=== PATIENT | female | born 1950 | race Caucasian/White ===

== ENCOUNTER → 2016-09-30 | Outpatient (CLI) | payer OTHER ==
[2016-09-30 11:53] LABS: Calcium 9.7 mg/dL (8.4-10.2); Potassium 4.6 mmol/L (3.5-5.1); Total Bilirubin 1.3 mg/dL (0.2-1.3); Total Protein 7.8 g/dL (6.3-8.2)
== END | disposition home or self-care (01) ==
LOC: LABWHC1 11:04
PROVIDERS: ATTEND Family Medicine
DX: I10 Essential (primary) hypertension (principal)
CPT/HCPCS: 36415; 80053

== ENCOUNTER → 2016-11-19 | Outpatient (CLI) | payer OTHER ==
[2016-11-19 12:25] LABS: Calcium 9.5 mg/dL (8.4-10.2); Potassium 4.4 mmol/L (3.5-5.1); Total Bilirubin 1.3 mg/dL (0.2-1.3); Total Protein 7.4 g/dL (6.3-8.2)
== END | disposition home or self-care (01) ==
LOC: LABWHC1 11:35
PROVIDERS: ATTEND Family Medicine
DX: I10 Essential (primary) hypertension (principal)
CPT/HCPCS: 36415; 80053

== ENCOUNTER → 2017-07-08 | Outpatient (CLI) | payer MEDICARE, OTHER ==
[2017-07-08 11:21] LABS: Basophils % (A) 0 %; Eosinophils # (A) 0.2 k/uL (0-0.7); Eosinophils % (A) 6 %; HCT 44.9 % (34.0-46.0); HGB 14.4 gm/dL (11.4-16.0); Lymphocytes # (A) 1.2 k/uL (1.0-4.8); Lymphocytes % (A) 31 %; MCH 30.1 pg (25.0-35.0); MCV 94.2 fL (80.0-100.0); Mean Platelet Volume 6.7; Monocytes # (A) 0.3 k/uL (0-1.0); Monocytes % (A) 8 %; Neutrophils % (A) 53 %; Platelet Count 185 k/uL (150-450); RBC 4.77 m/uL (3.80-5.40); RDW 13.3 % (11.5-15.5); WBC 3.8 k/uL (3.8-10.6)
[2017-07-08 11:32] LABS: ALT 22 U/L (9-52); AST 22 U/L (14-36); Albumin 4.2 g/dL (3.5-5.0); Alkaline Phosphatase 112 U/L (38-126); Anion Gap 10 mmol/L; Blood Urea Nitrogen 21 mg/dL (7-17); Calcium 10.1 mg/dL (8.4-10.2); Carbon Dioxide 28 mmol/L (22-30); Chloride 102 mmol/L (98-107); Cholesterol 223 mg/dL (<200); Glucose 97 mg/dL (74-99); HDL Cholesterol 72 mg/dL (40-60); LDL Cholesterol,Calculated 131 mg/dL (0-99); Potassium 5.1 mmol/L (3.5-5.1); Sodium 140 mmol/L (137-145); Total Bilirubin 1.1 mg/dL (0.2-1.3); Total Protein 7.9 g/dL (6.3-8.2); Triglycerides 102 mg/dL (<150)
== END | disposition home or self-care (01) ==
LOC: LABWHC1 10:23
PROVIDERS: ATTEND Family Medicine
DX: E78.5 Hyperlipidemia, unspecified (principal); I10 Essential (primary) hypertension
CPT/HCPCS: 36415; 80053; 80061; 82306; 85025

== ENCOUNTER → 2017-09-17 | Outpatient (CLI) | payer MEDICARE, OTHER ==
[2017-09-17 10:10] LABS: Albumin 4.3 g/dL (3.5-5.0); Calcium 9.7 mg/dL (8.4-10.2); Potassium 4.4 mmol/L (3.5-5.1); Total Protein 7.7 g/dL (6.3-8.2)
== END | disposition home or self-care (01) ==
LOC: LABWHC1 09:25
PROVIDERS: ATTEND Family Medicine
DX: E78.5 Hyperlipidemia, unspecified (principal)
CPT/HCPCS: 36415; 80053; 80061

== ENCOUNTER → 2018-08-07 | Outpatient (CLI) | payer MEDICARE, OTHER ==
[2018-08-07 11:23] LABS: Basophils % (A) 0 %; Eosinophils # (A) 0.2 k/uL (0-0.7); Eosinophils % (A) 4 %; HCT 42.6 % (34.0-46.0); Lymphocytes % (A) 20 %; MCH 29.7 pg (25.0-35.0); MCHC 32.9 g/dL (31.0-37.0); MCV 90.4 fL (80.0-100.0); Mean Platelet Volume 6.8; Monocytes # (A) 0.3 k/uL (0-1.0); Monocytes % (A) 7 %; Neutrophils # (A) 3.3 k/uL (1.3-7.7); Neutrophils % (A) 67 %; Platelet Count 152 k/uL (150-450); RBC 4.71 m/uL (3.80-5.40); RDW 13.5 % (11.5-15.5); WBC 4.9 k/uL (3.8-10.6)
[2018-08-07 17:30] LABS: Albumin 4.1 g/dL (3.80-4.90); Albumin/Globulin Ratio 1.52 (1.60-3.17); Calcium 9.4 mg/dL (8.7-10.3); Globulin 2.7 g/dL (1.6-3.3); Potassium 4.4 mmol/L (3.5-5.5); Total Protein 6.8 g/dL (6.2-8.2)
== END ==
LOC: LABWHC1 10:16
PROVIDERS: ATTEND Family Medicine
DX: I10 Essential (primary) hypertension (principal); E55.9 Vitamin D deficiency, unspecified
CPT/HCPCS: 36415; 80053; 82306; 85025

== ENCOUNTER → 2019-03-31 | Outpatient (CLI) | payer MEDICARE, OTHER ==
[2019-03-31 12:29] LABS: Basophils # (A) 0.1 k/uL (0-0.2); Basophils % (A) 1 %; Eosinophils # (A) 0.2 k/uL (0-0.7); Eosinophils % (A) 4 %; HCT 43.8 % (34.0-46.0); HGB 14.1 gm/dL (11.4-16.0); Lymphocytes % (A) 25 %; MCH 30.9 pg (25.0-35.0); MCHC 32.2 g/dL (31.0-37.0); MCV 95.9 fL (80.0-100.0); Mean Platelet Volume 6.8; Monocytes # (A) 0.3 k/uL (0-1.0); Monocytes % (A) 8 %; Neutrophils # (A) 2.5 k/uL (1.3-7.7); Neutrophils % (A) 60 %; Platelet Count 166 k/uL (150-450); RBC 4.57 m/uL (3.80-5.40); WBC 4.2 k/uL (3.8-10.6)
[2019-03-31 20:27] LABS: African American GFR (CKD) 60.6 (60.0-200.0); Albumin 4.2 g/dL (3.80-4.90); Albumin/Globulin Ratio 1.62 (1.60-3.17); Anion Gap 9.9 mmol/L (4.00-12.00); BUN/Creat Ratio 22.73 Ratio (12.00-20.00); Calcium 9.2 mg/dL (8.7-10.3); Carbon Dioxide 25.1 mmol/L (21.6-31.8); Globulin 2.6 g/dL (1.6-3.3); Non-African American GFR(CKD) 52.3 (60.0-200.0); Potassium 4.7 mmol/L (3.5-5.5); Total Bilirubin 1.2 mg/dL (0.3-1.2); Total Protein 6.8 g/dL (6.2-8.2)
== END ==
LOC: LABWHC1 11:42
PROVIDERS: ATTEND Family Medicine
DX: E78.5 Hyperlipidemia, unspecified (principal)
CPT/HCPCS: 36415; 80053; 85025

== ENCOUNTER → 2019-12-15 | Outpatient (CLI) | payer MEDICARE, OTHER ==
[2019-12-15 11:45] LABS: Basophils % (A) 0 %; Eosinophils # (A) 0.2 k/uL (0-0.7); Eosinophils % (A) 5 %; HCT 45.3 % (34.0-46.0); HGB 14.2 gm/dL (11.4-16.0); Lymphocytes # (A) 1.2 k/uL (1.0-4.8); Lymphocytes % (A) 31 %; MCH 30.3 pg (25.0-35.0); MCHC 31.3 g/dL (31.0-37.0); MCV 96.8 fL (80.0-100.0); Mean Platelet Volume 7.7; Monocytes # (A) 0.3 k/uL (0-1.0); Monocytes % (A) 8 %; Neutrophils # (A) 2.1 k/uL (1.3-7.7); Neutrophils % (A) 52 %; Platelet Count 144 k/uL (150-450); RBC 4.68 m/uL (3.80-5.40); RDW 13.2 % (11.5-15.5); WBC 3.9 k/uL (3.8-10.6)
[2019-12-15 19:54] LABS: African American GFR (CKD) 54.2 (60.0-200.0); Albumin 4.3 g/dL (3.80-4.90); Albumin/Globulin Ratio 1.39 (1.60-3.17); Calcium 9.9 mg/dL (8.7-10.3); Chol/HDL Ratio 2.33; Globulin 3.1 g/dL (1.6-3.3); LDL Cholesterol,Calculated 92.4 mg/dL (0.0-131.0); Non-African American GFR(CKD) 46.7 (60.0-200.0); Potassium 4.6 mmol/L (3.5-5.5); Total Bilirubin 1.1 mg/dL (0.2-1.2); Total Protein 7.4 g/dL (6.2-8.2); VLDL Calculation 19.6 mg/dL (5.00-40.00)
== END | disposition home or self-care (01) ==
LOC: LABWHC1 09:42
PROVIDERS: ATTEND Family Medicine
DX: I10 Essential (primary) hypertension (principal); E78.5 Hyperlipidemia, unspecified
CPT/HCPCS: 36415; 80053; 80061; 85025

== ENCOUNTER → 2024-03-24 | Outpatient (CLI) | payer MEDICARE, OTHER ==
--- NOTE | 2024-03-25 15:33 | MR ---
EXAMINATION TYPE: MR pancreas / mrcp wo/w con DATE OF EXAM: 03/24/2024 9:25 AM INDICATION: Patient age:Female; 73 years old; Reason for study: K86.89 OTHER SPECIFIED DISEASES OF PANCREAS; [facility]. COMPARISON: CT chest 02/23/2024 TECHNIQUE: Multiplanar multi-sequence imaging was performed without and with IV contrast. The patie nt was given 7 ccs of Gadavist intravenously and dynamic imaging was performed. MRCP was performed. P ost IV contrast subtraction images were also submitted for review. FINDINGS: LOWER CHEST: Mild thyromegaly. ABDOMEN Liver: No focal lesion. Noncirrhotic morphology. No fatty infiltration. Gallbladder and Bile ducts: Gallbladder is unremarkable without filling defects. No intra or extra he patic biliary ductal dilatation. No filling defect, stricture, obstructing lesion or biliary wall thi ckening identified. Common bile duct measuring up to 4 mm in diameter. Pancreas: No pancreatic ductal dilatation. No concerning fluid collections. Pancreas body T2 hyperint ense thin-walled cyst corresponding to prior CT measuring 2.2 x 1.6 x 1.9 cm (series 701, image 43). Slight intrinsic T1 hyperintensity. There is some slight heterogenous enhancement on contrast subtrac tion imaging. Demonstrates thin homogeneous enhancing wall. Questionable communication with the pancr eatic duct. Additional 3 tiny 3 mm thin-walled hypodense foci within the pancreatic head and neck. No definitive enhancement in these 3 small lesions. Spleen: Unremarkable. Adrenal glands: Unremarkable. Kidneys: No hydronephrosis. Exophytic right lower pole 9 mm T2 hyperintense thin-walled nonenhancing cyst. Stomach and Bowel: No evidence of bowel obstruction. Pancolonic scattered diverticulosis without evid ence for acute diverticulitis. Peritoneum: No evidence of pneumoperitoneum, free fluid, or adenopathy. Vasculature: Unremarkable. No aortic aneurysm. Abdominal wall: Unremarkable. Musculoskeletal: The osseous structures appear intact. Multilevel degenerative disc disease. IMPRESSION: 1. Pancreatic body cystic 2.2 cm lesion with some internal enhancement. Raises concern for possible malignancy with etiologies including intraductal papillary mucinous neoplasm, cystic neuroendocrine t umor, primary ductal pancreatic tumor with cystic degeneration versus other etiologies. Endoscopic ul trasound is recommended. 2. 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 [facility], , 03/25/2024 3:31 PM
== END | disposition home or self-care (01) ==
LOC: RADMRIMAIN 07:42
PROVIDERS: ATTEND Internal Medicine Geriatric Medicine
DX: K86.89 Other specified diseases of pancreas (principal)
CPT/HCPCS: 74183; A9585

== ENCOUNTER 2024-04-22 08:22 | Day surgery (SDC) | payer MEDICARE, OTHER ==
[2024-04-22 08:50] VITALS: BP 149/80; PULSE 72; RESP 12; TEMP 98
--- NOTE | 2024-04-22 11:35 | US ---
EXAMINATION TYPE: US FNA thyroid first lesion DATE OF EXAM: 04/22/2024 10:13 AM COMPARISON: None CLINICAL INDICATION:Female, 73 years old with history of E04.1 NONTOXIC SINGLE THYROID NODULE; , righ t thyroid lobe. ATTENDING: Dr. Johann Deras PROCEDURE: Informed consent was obtained. The risks and benefits of the procedure were discussed with the patien t. The site was marked. Timeout procedure was performed Ultrasound imaging demonstrates right thyroid lobe nodule The patient was prepped, draped in the usual sterile fashion, and locally anesthetized with 1% lidoca ine. Five fine needle aspiration were then performed with a 25 gauge needle. Samples were sent to [facility] pathology department for further analysis. Patient tolerated the procedure without incident and wa s sent home in stable condition. IMPRESSION: Successful ultrasound guided fine needle aspiration of the right thyroid lobe nodule. [facility], , 04/22/2024 11:33 AM
== END 2024-04-22 10:10 | disposition home or self-care (01) ==
LOC: RADPROMAIN 08:22
PROVIDERS: ATTEND Internal Medicine Geriatric Medicine
DX: E04.1 Nontoxic single thyroid nodule (principal)
CPT/HCPCS: 10005; 88173; 88305

== ENCOUNTER → 2024-06-05 | Outpatient (CLI) | payer MEDICARE, OTHER ==
--- NOTE | 2024-06-05 17:08 | MR ---
INDICATION: Patient age:Female; 74 years old; Reason for study: Z86.73 HX OF STROKE; [facility]. COMPARISON: CT brain 09/17/2013. TECHNIQUE: Multi planar, multi sequence imaging was performed through the brain without administratio n intravenous contrast FINDINGS: The west-white junctions, ventricular system, basal cisterns appear unremarkable. Age-appropriate cer ebral volume loss. Diffusion-weighted imaging shows no evidence of restricted diffusion to suggest ac [place]/subacute infarct. Region of encephalomalacia with surrounding gliosis within the right frontal an d parietal lobes from prior ischemic injury. Intracranial arterial flow voids are maintained. Midline structures show no abnormality. Patchy and confluent areas of high T2/FLAIR signal intensity are see n within the periventricular and subcortical white matter. The susceptibility weighted images demonst rate hemosiderin deposition within the right frontal lobe at site of prior infarct. Bilateral basal g anglia calcifications corresponding to prior CT. The bone marrow signal is within normal limits. The paranasal sinuses and globes are unremarkable. IMPRESSION: 1. No evidence of intracranial mass or acute/subacute infarct. 2. Regions of encephalomalacia with gliosis from prior ischemic injury involving the right frontal an d parietal lobes. 3. Nonspecific white matter changes, likely related to small vessel ischemic disease. [facility], , 06/05/2024 5:06 PM
== END | disposition home or self-care (01) ==
LOC: RADMRIMAIN 13:18
PROVIDERS: ATTEND Psychiatry & Neurology Neurology
DX: G93.89 Other specified disorders of brain (principal); R90.82 White matter disease, unspecified; Z86.73 Personal history of transient ischemic attack (TIA), and cerebral infarction without residual deficits
CPT/HCPCS: 70551

== ENCOUNTER 2024-07-07 22:44 | Inpatient (IN) | payer MEDICARE, OTHER ==
[2024-07-07] MEDS: diphenhydrAMINE 50 MG/ML 1 ML VIAL IVP STA (23:10)
[2024-07-07] MEDS: methylPREDNISolone SOD SUCCI 125 MG/2 ML VIAL IV STA (23:11)
[2024-07-07] MEDS: FAMOTIDINE 20 MG/2 ML VIAL IV STA (23:11)
[2024-07-07 23:13] LABS: Basophils % (A) 0 %; Eosinophils # (A) 0.2 k/uL (0-0.7); Eosinophils % (A) 5 %; HCT 40.8 % (34.0-46.0); HGB 13.1 gm/dL (11.4-16.0); Lymphocytes # (A) 1.8 k/uL (1.0-4.8); Lymphocytes % (A) 37 %; MCH 30.6 pg (25.0-35.0); MCV 95.4 fL (80.0-100.0); Mean Platelet Volume 7.7; Monocytes # (A) 0.5 k/uL (0-1.0); Monocytes % (A) 10 %; Neutrophils # (A) 2.1 k/uL (1.3-7.7); Neutrophils % (A) 45 %; Platelet Count 135 k/uL (150-450); RBC 4.27 m/uL (3.80-5.40); RDW 13.6 % (11.5-15.5); WBC 4.7 k/uL (3.8-10.6)
[2024-07-07 23:24] LABS: Partial Thromboplastin Time 22.7 sec (22.0-30.0); Prothrombin Time 10.8 sec (10.0-12.5)
--- NOTE | 2024-07-07 23:28 | CT ---
EXAMINATION TYPE: CODE STROKE: CT brain wo contr DATE OF EXAM: 07/07/2024 HISTORY: Acute onset neuro deficit. Code stroke. CT DLP: 1089 mGycm. Automated Exposure Control for Dose Reduction was Utilized. TECHNIQUE: CT scan of the head is performed without contrast. COMPARISON: CT brain 2013. MRI brain June 05, 2024 FINDINGS: There is no acute intracranial hemorrhage or midline shift identified. There is mild to m oderate diffuse ventricular and sulcal prominence redemonstrated. There are confluent areas of low a ttenuation throughout the deep and periventricular white matter redemonstrated. Old infarcts or focal encephalomalacia right frontal and right parietal lobes axial image 30 is again seen. The globes ar e intact and the visualized sinuses are clear. IMPRESSION: No acute intracranial hemorrhage or midline shift. There is [id number] diffuse ag e-related cerebral atrophy and moderate chronic small vessel ischemic change along with old right fro ntal and parietal lobe infarcts are all redemonstrated. No significant change from most recent prior MRI. If clinical concern for acute stroke persist further investigation with repeat MRI study may BE james dumont. [facility], , 07/07/2024 11:26 PM
--- NOTE | 2024-07-07 23:29 | XR ---
EXAMINATION TYPE: XR chest 1V DATE OF EXAM: 07/07/2024 COMPARISON: Chest x-ray September 17, 2013 CLINICAL INDICATION: Female, 74 years old with history of altered mental status; TECHNIQUE: Single frontal view of the chest is obtained. FINDINGS: Cardiomegaly is redemonstrated. No suspicious focal airspace opacity, pleural effusion, o r pneumothorax is seen. Overlying EKG leads are present. The osseous structures are intact. IMPRESSION: Cardiomegaly without acute pulmonary process. [facility], , 07/07/2024 11:27 PM
--- NOTE | 2024-07-07 23:37 | CT ---
EXAMINATION TYPE: CT angio head neck DATE OF EXAM: 07/07/2024 COMPARISON: None. CLINICAL INDICATION: Female, 74 years old with history of POSS STROKE/AMS; [facility], acute onset neuro def icit TECHNIQUE: CTA scan of the head and neck is performed with IV Contrast, patient injected with 100 mL of Isovue 300, axial images are obtained, coronal and sagittal reformatted images are reviewed. 3D r econstructed images are created on an independent workstation and reviewed. CT DLP: [address] CTDI: 16 mGy Automated exposure control for dose reduction was used. NASCET criteria was used in interpretation of this exam? FINDINGS: Right Carotid System: The common carotid artery and external carotid artery are patent. Moderate to severe calcified plaque right carotid bulb extends into proximal internal carotid artery. Lumen diameter narrows to 1.8 mm w ith reconstitution of 2 6.4 mm distal to this. The remaining portions of the internal carotid artery demonstrate normal size without significant narrowing. Mild to moderate peripheral calcified plaque d istally is seen Left Carotid System: The common carotid artery and external carotid artery are patent. The carotid bifurcation demonstrate s no evidence of hemodynamically significant stenosis. Mild calcified plaque left carotid bulb level is seen. The remaining portions of the internal carotid artery demonstrate normal size without signif icant narrowing. [id number] peripheral calcified plaque distal internal carotid artery is seen. Vertebral arteries are patent without evidence hemodynamically significant stenosis. Right vertebral artery is larger caliber dominant. Poorly visualized bilateral posterior communicating arteries. There is a patent anterior communicatin g artery. No large vessel occlusion or aneurysm at the level of [place]. There is a three-vessel aortic arch. The origins of the great vessels are patent. No evidence of hemo dynamically significant stenosis. Other: There is 1.9 cm low dense right thyroid nodule. This is noted sampled April 22, 2024. Corre late clinically. Moderate disc space narrowing and spurring C4-C5 and C5-C6 levels. IMPRESSION: 1. No large vessel occlusion or aneurysm at the level of the [place] of [place]. 2. Moderate to severe plaque right carotid bulb and proximal internal carotid artery causing signifi cant stenosis with lumen diameter narrowing measured around 70%. Consider direct catheter angiogram t o further evaluate and/or treat. [facility], , 07/07/2024 11:35 PM
[2024-07-07 23:42] LABS: ALT 13 U/L (4-34); AST 25 U/L (14-36); African American GFR (CKD) 46 (>60 ml/min/1.73 sqM); Alkaline Phosphatase 87 U/L (38-126); Anion Gap 10 mmol/L; Blood Urea Nitrogen 31 mg/dL (7-17); Calcium 9.3 mg/dL (8.4-10.2); Carbon Dioxide 25 mmol/L (22-30); Chloride 99 mmol/L (98-107); Creatine Kinase 71 U/L (30-135); Glucose 108 mg/dL (74-99); Non-African American GFR(CKD) 40 (>60 ml/min/1.73 sqM); Potassium 4.4 mmol/L (3.5-5.1); Sodium 134 mmol/L (137-145); Total Bilirubin 0.7 mg/dL (0.2-1.3); Total Protein 7.4 g/dL (6.3-8.2)
[2024-07-08] MEDS: T.ENECTEPLASE 5 MG/ML VIAL IVP STA (00:03)
[2024-07-08] MEDS ORDERED: LABETALOL 5 MG/ML VIAL MDV IVP PRN (00:21)
--- NOTE | 2024-07-08 00:29 | ED ---
Neuro HPI - General Chief Complaint: Neuro Symptoms/Deficit Stated Complaint: Stroke Time Seen by Provider: 07/07/24 22:46 Source: patient, EMS Mode of arrival: EMS Limitations: no limitations - History of Present Illness Is the patient presenting with stroke symptoms?: Yes Last Known Well Date: 07/07/24 Last Known Well Time: 22:00 -: minutes(s) Initial Comments: Patient is 74-year-old woman arriving by ambulance to have evaluation for suspected stroke. The patient had been observed by family members to be in her usual state health and then she had gotten up to use the bathroom this evening and then had fallen. She displayed weakness of the left arm and leg. EMS was called and brings patient here to have evaluation. Of note she did have TIA and had been admitted at [facility] for same last week. Location: left face, left arm, left leg History of same: No Place: home Severity: severe Quality: weak, numb Improves With: none Worsens With: none On Anticoagulants: Yes (plavix) Context: sudden onset Associated Symptoms: denies other symptoms Treatments Prior to Arrival: none - Related Data Home Medications: Home Medications Medication Instructions Recorded Confirmed Montelukast [Singulair] 10 mg PO HS 04/06/24 07/15/24 amLODIPine [Norvasc] 5 mg PO DAILY 04/06/24 07/15/24 carvediloL [Coreg] 12.5 mg PO BID 04/06/24 07/15/24 Atorvastatin Calcium [Lipitor] 40 mg PO HS 07/08/24 07/15/24 Previous Rx's Medication Instructions Recorded Ticagrelor [Brilinta] 90 mg PO BID #60 tab 07/14/24 Allergies/Adverse Reactions: Allergies Allergy/AdvReac Type Severity Reaction Status Date / Time acetaminophen Allergy Anaphylaxis Verified 07/15/24 09:57 [From Tylenol-Codeine #3] aspirin Allergy Rash/Hives Verified 07/15/24 09:57 codeine Allergy Anaphylaxis Verified 07/15/24 09:57 iodine Allergy Rash/Hives Verified 07/15/24 09:57 Penicillins Allergy Anaphylaxis Verified 07/15/24 09:57 Review of Systems ROS Statement: Those systems with pertinent positive or pertinent negative responses have been documented in the HPI. ROS Other: All systems not noted in ROS Statement are negative. Constitutional: Reports: weakness. Denies: fever, chills Eyes: Denies: vision change Respiratory: Denies: cough, dyspnea Cardiovascular: Denies: chest pain, palpitations Gastrointestinal: Denies: abdominal pain, vomiting, diarrhea Genitourinary: Denies: dysuria, hematuria Musculoskeletal: Denies: back pain Skin: Denies: rash Neurological: Reports: as per HPI, weakness. Denies: headache, paresthesias General Exam Limitations: no limitations General appearance: alert, in distress Head exam: Present: atraumatic, normocephalic Eye exam: Present: normal appearance. Absent: scleral icterus, conjunctival injection Neck exam: Present: normal inspection, full ROM Respiratory exam: Present: normal lung sounds bilaterally. Absent: respiratory distress, wheezes, rales, rhonchi, stridor, accessory muscle use Cardiovascular Exam: Present: regular rate, normal rhythm, normal heart sounds. Absent: systolic murmur, diastolic murmur, rubs, gallop GI/Abdominal exam: Present: soft. Absent: distended, tenderness, guarding, rebound, rigid, mass Extremities exam: Present: normal inspection, normal capillary refill. Absent: pedal edema, calf tenderness Back exam: Present: normal inspection. Absent: CVA tenderness (R), CVA tenderness (L) Neurological exam: Present: alert, oriented X3, CN II-XII intact, motor sensory deficit (Left arm, left leg weakness) Expanded Neurological exam: Present: protecting the airway. Absent: inattentive, ataxia, receptive aphasia, expressive aphasia, tremor Patient oriented to: Present: person, place, time Speech: Present: fluid speech Cranial nerves: Tongue Deviation: Normal Motor strength exam: RUE: 5, LUE: 0, RLE: 5, LLE: 2/1 Eye Response: (4) open spontaneously Motor Response: (6) obeys commands Verbal Response: (5) oriented Skin exam: Present: warm, dry, intact, normal color. Absent: rash Stroke MDM - Lab Data Result diagrams: 07/14/24 04:10 07/14/24 04:10 Lab Results 07/07/24 07/07/24 07/07/24 Range/Units 22:55 22:55 22:55 WBC 4.7 (3.8-10.6) k/uL RBC 4.27 (3.80-5.40) m/uL Hgb 13.1 (11.4-16.0) gm/dL Hct 40.8 (34.0-46.0) % MCV 95.4 (80.0-100.0) fL MCH 30.6 (25.0-35.0) pg MCHC 32.0 (31.0-37.0) g/dL RDW 13.6 (11.5-15.5) % Plt Count 135 L (150-450) k/uL MPV 7.7 Neutrophils % 45 % Lymphocytes % 37 % Monocytes % 10 % Eosinophils % 5 % Basophils % 0 % Neutrophils # 2.1 (1.3-7.7) k/uL Lymphocytes # 1.8 (1.0-4.8) k/uL Monocytes # 0.5 (0-1.0) k/uL Eosinophils # 0.2 (0-0.7) k/uL Basophils # 0.0 (0-0.2) k/uL PT 10.8 (10.0-12.5) sec INR 1.0 (<1.2) APTT 22.7 (22.0-30.0) sec Sodium 134 L (137-145) mmol/L Potassium 4.4 (3.5-5.1) mmol/L Chloride 99 (98-107) mmol/L Carbon Dioxide 25 (22-30) mmol/L Anion Gap 10 mmol/L BUN 31 H (7-17) mg/dL Creatinine 1.34 H (0.52-1.04) mg/dL Est GFR (CKD-EPI)AfAm 46 (>60 ml/min/1.73 sqM) Est GFR (CKD-EPI)NonAf 40 (>60 ml/min/1.73 sqM) Glucose 108 H (74-99) mg/dL Calcium 9.3 (8.4-10.2) mg/dL Total Bilirubin 0.7 (0.2-1.3) mg/dL AST 25 (14-36) U/L ALT 13 (4-34) U/L Alkaline Phosphatase 87 (38-126) U/L Creatine Kinase 71 (30-135) U/L Troponin I (0.000-0.034) ng/mL Total Protein 7.4 (6.3-8.2) g/dL Albumin 4.0 (3.5-5.0) g/dL 07/07/24 Range/Units 22:55 WBC (3.8-10.6) k/uL RBC (3.80-5.40) m/uL Hgb (11.4-16.0) gm/dL Hct (34.0-46.0) % MCV (80.0-100.0) fL MCH (25.0-35.0) pg MCHC (31.0-37.0) g/dL RDW (11.5-15.5) % Plt Count (150-450) k/uL MPV Neutrophils % % Lymphocytes % % Monocytes % % Eosinophils % % Basophils % % Neutrophils # (1.3-7.7) k/uL Lymphocytes # (1.0-4.8) k/uL Monocytes # (0-1.0) k/uL Eosinophils # (0-0.7) k/uL Basophils # (0-0.2) k/uL PT (10.0-12.5) sec INR (<1.2) APTT (22.0-30.0) sec Sodium (137-145) mmol/L Potassium (3.5-5.1) mmol/L Chloride (98-107) mmol/L Carbon Dioxide (22-30) mmol/L Anion Gap mmol/L BUN (7-17) mg/dL Creatinine (0.52-1.04) mg/dL Est GFR (CKD-EPI)AfAm (>60 ml/min/1.73 sqM) Est GFR (CKD-EPI)NonAf (>60 ml/min/1.73 sqM) Glucose (74-99) mg/dL Calcium (8.4-10.2) mg/dL Total Bilirubin (0.2-1.3) mg/dL AST (14-36) U/L ALT (4-34) U/L Alkaline Phosphatase (38-126) U/L Creatine Kinase (30-135) U/L Troponin I <0.012 (0.000-0.034) ng/mL Total Protein (6.3-8.2) g/dL Albumin (3.5-5.0) g/dL - Medical Decision Making The patient had chest x-ray that I interpreted as negative for acute infiltrate, pneumothorax, congestive heart failure. The patient had CT scan of the brain that I interpreted as negative for acute bony injury, negative for acute intracranial hemorrhage, mass effect or midline shift. The patient had CT angiography of the brain that I interpreted as negative for acute intracranial hemorrhage. No obvious arterial obstruction. Was pt. sent in by a medical professional or institution (LOPEZ Robert, ASSOCIATE PROFESSOR OF PSYCHOLOGY, urgent care, hospital, or intermediate...) When possible be specific @ -[No] Did you speak to anyone other than the patient for history (EMS, parent, family, police, friend...)? What history was obtained from this source @ -[No] Did you review nursing and triage notes (agree or disagree)? Why? @ -[I reviewed and agree with nursing and triage notes] Were old charts reviewed (outside hosp., previous admission, EMS record, old EKG, old radiological studies, urgent care reports/EKG's, intermediate records)? Report findings @ -[No old charts were reviewed] Differential Diagnosis (chest pain, altered mental status, abdominal pain women, abdominal pain men, vaginal bleeding, weakness, fever, dyspnea, syncope, headache, dizziness, GI bleed, back pain, seizure, CVA, palpatations, mental health, musculoskeletal)? @ -[Differential CVA Ischemic stroke, hemorrhagic stroke, brain tumor, atypical migraine, Wernicke's encephalopathy, seizure, multiple sclerosis, meningitis, encephalitis, hypoglycemia, Guillain-Corrigan, electrolytes disturbance, myasthenia gravis.... This is not meant to be an all-inclusive list EKG interpreted by me (3pts min.). @ -[I interpreted as above] X-rays interpreted by me (1pt min.). @ -[I interpreted as above CT interpreted by me (1pt min.). @ -[I interpreted as above U/S interpreted by me (1pt. min.). @ -[None done] What testing was considered but not performed or refused? (CT, X-rays, U/S, labs)? Why? @ -[None] What meds were considered but not given or refused? Why? @ -[None] Did you discuss the management of the patient with other professionals (professionals i.e. LOPEZ Robert, ASSOCIATE PROFESSOR OF PSYCHOLOGY, lab, RT, psych nurse, bilingual social worker, clinical account liaison, teacher, radiological defense officer, gearcase assembler)? Give summary @ -[I discussed case with the stroke interventionalist, as above Was smoking cessation discussed for >3mins.? @ -[No] Was critical care preformed (if so, how long)? @ -[Yes, 40 minutes Were there social determinants of health that impacted care today? How? (Homelessness, low income, unemployed, alcoholism, drug addiction, transportation, low edu. Level, literacy, decrease access to med. care, penitentiary, rehab)? @ -[No] Was there de-escalation of care discussed even if they declined (Discuss DNR or withdrawal of care, Hospice)? DNR status @ -[No] What co-morbidities impacted this encounter? (DM, HTN, Smoking, COPD, CAD, Cancer, CVA, ARF, Chemo, Hep., AIDS, mental health diagnosis, sleep apnea, morbid obesity)? @ -[Hypertension, previous TIA Was patient admitted / discharged? Hospital course, mention meds given and route, prescriptions, significant lab abnormalities, going to OR and other pertinent info. @ -[Patient is 74-year-old woman brought to have evaluation for suspected stroke. See the above discussion. Patient is administered TNKase. After period of time she did have marked neurologic improvement. The patient is admitted to have further neurology consultation and treatment. Undiagnosed new problem with uncertain prognosis? @ -[No] Drug Therapy requiring intensive monitoring for toxicity (Heparin, Nitro, Insulin, Cardizem)? @ -[TNKase Were any procedures done? @ -[No] Diagnosis/symptom? @ -[Acute ischemic stroke Acute, or Chronic, or Acute on Chronic? @ -[Acute Uncomplicated (without systemic symptoms) or Complicated (systemic symptoms)? @ -[default] Side effects of treatment? @ -[No] Exacerbation, Progression, or Severe Exacerbation? @ -[No] Poses a threat to life or bodily function? How? (Chest pain, [place], [place], pneumonia, PE, COPD, DKA, ARF, appy, cholecystitis, CVA, Diverticulitis, Homicidal, Suicidal, threat to staff... and all critical care pts) @ -[Yes risk of permanent disability/ related to ischemic stroke All treatments are based on ideal body weight as in ED triage - EKG Data -: EKG Interpreted by Me EKG shows normal: sinus rhythm (With frequent PVCs, rate 79 bpm), intervals (AK interval 254 ms, prolonged consistent with first-degree AV block. QRS duration 94 ms, QTc 410 ms, both normal.), QRS complexes (Normal), ST-T waves (Possible lateral ischemia) Rate: normal (Rate 79 bpm) Past Medical History Past Medical History: CVA/TIA, Hyperlipidemia, Hypertension Additional Past Medical History / Comment(s): TIA 02/2024 History of Any Multi-Drug Resistant Organisms: None Reported Past Surgical History: Adenoidectomy, Section, Tonsillectomy Past Anesthesia/Blood Transfusion Reactions: No Reported Reaction Past Psychological History: No Psychological Hx Reported Smoking Status: Never smoker Past Alcohol Use History: None Reported Past Drug Use History: None Reported - Past Family History Father Family Medical History: Cancer, Renal Disease Additional Family Medical History / Comment(s): kidney cancer, 1 kidney removed. Mother Family Medical History: Congestive Heart Failure (CHF), Coronary Artery Disease (CAD), Dementia Course Vital Signs 07/07/24 07/07/24 07/08/24 22:45 23:29 01:54 Temperature 97.4 F L Pulse Rate 72 80 77 Respiratory 18 18 18 Rate Blood Pressure 146/84 155/94 127/91 O2 Sat by Pulse 96 96 94 L Oximetry 07/08/24 07/08/24 07/08/24 02:00 03:00 04:00 Temperature Pulse Rate 80 78 80 Respiratory 18 16 16 Rate Blood Pressure 127/58 113/99 137/81 O2 Sat by Pulse 95 94 L 95 Oximetry 07/08/24 07/08/24 07/08/24 05:00 07:40 08:02 Temperature 98.9 F 98.1 F Pulse Rate 81 87 82 Respiratory 18 18 18 Rate Blood Pressure 109/81 144/70 126/69 O2 Sat by Pulse 94 L 96 96 Oximetry - Reevaluation(s) Reevaluation #1: 07/08/24 00:27 Patient is 74-year-old woman here with recent fall and left-sided weakness. After arrival, the patient is sent for CT of the brain. I discussed the case w ith Dr. Molina. He reviewed the CT scan, then called back and we discussed indications/contraindications. I discussed with family and after some discussion amongst himself's and answering questions the patient is administered TNKase, the discussion did result in small delay in administration. Disposition Clinical Impression: Cerebrovascular accident (CVA) Disposition: ADMITTED IP TO THIS HOSP Condition: Fair Is patient prescribed a controlled substance at d/c from ED?: No
[2024-07-08] MEDS: ATORVASTATIN 80 MG TAB PO STA (01:44)
--- NOTE | 2024-07-08 03:39 | P.CNPUL ---
History of Present Illness Consult date: 07/08/24 Requesting physician: Nelson Hays Reason for consult: other (Status post TNK) Chief complaint: CVA-like symptoms History of present illness: Patient is a 74-year-old female with past medical history significant for hypertension, hyperlipidemia, CVA/TIA, chronic kidney disease. Presented to the emergency department via EMS late last night at 2245 with CVA-like symptoms. NIH reported at 9. Code stroke initiated. Brain CT did not show any evidence of acute intracranial hemorrhage or midline shift. Mild to moderate diffuse age- related cerebral atrophy and moderate chronic small vessel ischemic changes along with old right frontal and parietal lobe infarcts redemonstrated. CT angio of head and neck did not show any large vessel occlusions or aneurysm at the level of the [place]. Moderate to severe plaque at the right carotid bulb and proximal internal carotid artery causing significant stenosis with lumen diameter narrowing measured around 70%. On-call neurointerventional and ER physician felt patient would benefit from TNK infusion. ICU consult placed for neuromonitoring status post TNK. I am evaluating this patient in the trauma bay 2. Patient is alert and oriented x 3. Continues to have some mild to moderate dysarthria. Left-sided hemiparesis has resolved. Denies headaches, vision changes, nausea or vomiting, sensory loss. No limb ataxia outside of [place]. Denies history of seizures or migraines. Remaining neurological exam is nonfocal. Family is at bedside, and supplements HPI. At 10 pm, patient developed sudden left-sided weakness and "garbled" speech. She had a fall from the couch and landed on her face. There is some dried blood in the perioral region. No active bleeding. According to the , patient was just recently admitted at [facility] for a "mini stroke". No thrombolytics were given at this time. She was discharged on June 28. Also, she recently had a follow-up visit on Friday with her neurologist, Dr. Nikkie Gracia. Patient does have history of previous CVA. Not on any anticoagulants, but does take Plavix. Did have a recent brain MRI on 06/05/2024 did not show any evidence of intracranial mass or subacute/acute infarct. There were regions of encephalomalacia with gliosis from prior ischemic injury involving the right frontal and parietal lobes. CBC: WBC count 4.7, hemoglobin 13.1, hematocrit 40.8, platelets 135. PT 10.8, INR 1, APTT 22.7. CMP: Sodium 134, potassium 4.4, chloride 99, serum bicarb 25, BUN 31, creatinine 1.34, glucose 108. LFTs not elevated. Troponin less than 0.012. EKG: Sinus rhythm with first-degree AV block and frequent PVCs. Current vital signs: Afebrile, heart rate 77 bpm, blood pressure 127/91 mmHg, nontachypneic, SpO2 reading 94% on room air. Review of Systems Constitutional: Denies chills, Denies fatigue, Denies fever, Denies poor appetite, Denies weight gain, Denies weight loss Ears, nose, mouth and throat: Denies epistaxis, Denies headache, Denies nasal congestion, Denies nasal discharge, Denies post-nasal drip, Denies sinus pain, Denies sinus pressure, Denies sore throat Cardiovascular: Denies chest pain, Denies leg edema, Denies lightheadedness, Den ies orthopnea, Denies palpitations, Denies paroxysmal nocturnal dyspnea, Denies shortness of breath, Denies syncope Respiratory: Denies congestion, Denies cough, Denies dyspnea, Denies hemoptysis Gastrointestinal: Denies abdominal pain, Denies diarrhea, Denies hematemesis, Denies hematochezia, Denies melena, Denies nausea, Denies vomiting Genitourinary: Denies dysuria, Denies hematuria Musculoskeletal: Reports as per HPI Integumentary: Denies rash Neurological: Reports as per HPI Psychiatric: Denies anxiety, Denies depression Past Medical History Past Medical History: CVA/TIA, Hyperlipidemia, Hypertension Additional Past Medical History / Comment(s): TIA 02/2024 History of Any Multi-Drug Resistant Organisms: None Reported Past Surgical History: Adenoidectomy, Section, Tonsillectomy Past Anesthesia/Blood Transfusion Reactions: No Reported Reaction Past Psychological History: No Psychological Hx Reported Smoking Status: Never smoker Past Alcohol Use History: None Reported Past Drug Use History: None Reported - Past Family History Father Family Medical History: Cancer, Renal Disease Additional Family Medical History / Comment(s): kidney cancer, 1 kidney removed. Mother Family Medical History: Congestive Heart Failure (CHF), Coronary Artery Disease (CAD), Dementia Medications and Allergies Home Medications Medication Instructions Recorded Confirmed Type Atorvastatin Calcium 20 mg PO DAILY 04/06/24 04/22/24 History Clopidogrel Bisulfate [Clopidogrel] 75 mg PO DAILY 04/06/24 04/22/24 History Montelukast [Singulair] 10 mg PO DAILY 04/06/24 04/22/24 History amLODIPine [Norvasc] 5 mg PO DAILY 04/06/24 04/22/24 History carvediloL [Coreg] 12.5 mg PO DAILY 04/06/24 04/22/24 History Allergies Allergy/AdvReac Type Severity Reaction Status Date / Time aspirin Allergy Swelling Verified 07/07/24 22:51 iodine Allergy Rash/Hives Verified 07/07/24 22:51 Penicillins Allergy Rash/Hives Verified 07/07/24 22:51 Physical Exam Vitals: Vital Signs Temp Pulse Resp BP Pulse Ox 07/08/24 01:54 77 18 127/91 94 L 07/07/24 23:29 80 18 155/94 96 07/07/24 22:45 97.4 F L 72 18 146/84 96 Intake and Output 07/07/24 07/07/24 07/08/24 14:59 22:59 06:59 Other: Weight 76.385 kg GENERAL EXAM: Alert, 74-year-old female, lying flat in bed, comfortable in no apparent distress. HEAD: Normocephalic and atraumatic. Dried blood in the perioral area. No active bleeding. EYES: Normal reaction of pupils, equal size. No nystagmus. Nonicteric sclera. NOSE: Clear with pink turbinates. Dried blood in the perioral area. No active epistaxis THROAT: No erythema or exudates. NECK: No masses, no JVD. CHEST: No chest wall deformity. LUNGS: Equal air entry with no crackles, wheeze, rhonchi or dullness. On room air. No conversational dyspnea or accessory muscle use.. CVS: S1 and S2 normal with no audible murmur, frequent ectopy. No extra heart sounds ABDOMEN: No hepatosplenomegaly, active bowel sounds, no guarding or rigidity. SPINE: No scoliosis or deformity SKIN: No rashes CENTRAL NERVOUS SYSTEM: Alert and oriented x 3, continues to exhibit some mild dysarthria, remaining cranial nerves intact, bilateral upper extremity weakness grade 4/4, bilateral lower extremity weakness grade 4/4, no limb ataxia outside of weakness, DTRs 1-2+ bilaterally. EXTREMITIES: There is no peripheral edema, clubbing, or cyanosis. Peripheral pulses are intact. Results - Laboratory Findings CBC and BMP: 07/07/24 22:55 07/07/24 22:55 PT/INR, D-dimer PT 10.8 sec (10.0-12.5) 07/07/24 22:55 INR 1.0 (<1.2) 07/07/24 22:55 Abnormal lab findings: Abnormal Labs 07/07/24 07/07/24 22:55 22:55 Plt Count 135 L Sodium 134 L BUN 31 H Creatinine 1.34 H Glucose 108 H - Diagnostic Findings Chest x-ray: image reviewed Assessment and Plan Assessment: Acute ischemic CVA, status post TNK History of hypertension History of hyperlipidemia History of CVA/TIA Carotid artery stenosis, CT angio of head and neck did not show any large vessel occlusions or aneurysm at the level of the [place]. Moderate to severe plaque at the right carotid bulb and proximal internal carotid artery causing significant stenosis with lumen diameter narrowing measured around 70%. No significant luminal narrowing on the left. Chronic kidney disease stage III Plan: Patient is status post TNK and is going to be admitted to the intensive care unit Continue neurochecks per protocol Avoid extremes in blood pressure; as needed labetalol for extreme hypertension greater than 180/[address] of the brain without contrast is ordered Continue high intensity statin Medical neurology consulted Patient reportedly had an extensive neurological workup at [facility] last week, please request outside records Consult speech and PT/OT GI prophylaxis: Pepcid Patient will be monitored in the intensive care unit for least 24 hours I have personally seen and examined the patient, performed the documentation and the assessment and plan as written. Number of minutes spent on the visit:20 . Time with Patient: Greater than 30
[2024-07-08 08:20] LABS: Glucose,Whole Blood 146 mg/dL (70-110)
[2024-07-08 08:56] LABS: Basophils % (A) 0 %; Eosinophils % (A) 0 %; HCT 42.8 % (34.0-46.0); HGB 13.3 gm/dL (11.4-16.0); Lymphocytes # (A) 0.7 k/uL (1.0-4.8); Lymphocytes % (A) 19 %; MCH 30.4 pg (25.0-35.0); MCV 97.8 fL (80.0-100.0); Mean Platelet Volume 7.1; Monocytes # (A) 0.1 k/uL (0-1.0); Monocytes % (A) 3 %; Neutrophils # (A) 3.1 k/uL (1.3-7.7); Neutrophils % (A) 78 %; Platelet Count 139 k/uL (150-450); RBC 4.37 m/uL (3.80-5.40); RDW 13.3 % (11.5-15.5)
[2024-07-08 09:26] LABS: ALT 16 U/L (4-34); AST 26 U/L (14-36); African American GFR (CKD) 49 (>60 ml/min/1.73 sqM); Albumin 3.9 g/dL (3.5-5.0); Alkaline Phosphatase 95 U/L (38-126); Anion Gap 12 mmol/L; Blood Urea Nitrogen 27 mg/dL (7-17); Calcium 9.2 mg/dL (8.4-10.2); Carbon Dioxide 23 mmol/L (22-30); Chloride 101 mmol/L (98-107); Glucose 155 mg/dL (74-99); Magnesium 2.1 mg/dL (1.6-2.3); Non-African American GFR(CKD) 42 (>60 ml/min/1.73 sqM); Potassium 4.2 mmol/L (3.5-5.1); Sodium 136 mmol/L (137-145); Total Bilirubin 1.1 mg/dL (0.2-1.3); Total Protein 7.3 g/dL (6.3-8.2)
[2024-07-08] MEDS: ACETAMINOPHEN TAB 325 MG TAB PO PRN (10:03)
[2024-07-08 11:47] LABS: Glucose,Whole Blood 171 mg/dL (70-110)
[2024-07-08] MEDS: CLOPIDOGREL 75 MG TAB PO SCH (12:04)
[2024-07-08] MEDS: FAMOTIDINE 20 MG/2 ML VIAL IV SCH (12:04)
[2024-07-08] MEDS: carvediloL 12.5 MG TAB PO SCH (12:04)
--- NOTE | 2024-07-08 13:56 | P.HPIM ---
History of Present Illness H&P Date: 07/08/24 This is a 74-year-old female with medical history significant for stroke, hypertension, hyperlipidemia. Patient had a prior TIA in 2023. Patient presents to the ER at 2245 yesterday evening with last known well of 10 PM. Patient arrived by EMS for suspected stroke per family they report patient had fallen off the couch; and noted to have weakness of the left arm and leg as well as garbled speech. Patient was at [facility] last week for TIA and discharged on the . She was admitted from June 26 to June 28, for numbness and paresthesias of the left hand which had resolved prior to coming to the ER. Patient's brain CT there did show a hypodensity in the right parietal region which may be age-indeterminate. Echocardiogram completed at [facility] reveals an EF of 50 to 55% with no intra-arterial shunt on bubble study. Her preliminary carotid duplex shows no evidence of hemodynamically significant stenosis. Patient was discharged on Plavix and Lipitor and was recommended for outpatient MRI and MRA of the brain. Noted that she did have a brain MRI completed on June 05, 2024 which reveals no evidence of intracranial mass/acute/subacute infarct. There is regions of encephalomalacia with gliosis from prior ischemic injury involving the right frontal and parietal lobes there is nonspecific white matter changes likely related to small vessel ischemic disease. She followed up with her primary Neurologist Dr. Romulo Gracia last Friday. She reports now for stroke like symptoms and found to have NIH score of 9 and a code stroke was initiated. Neurosurgery felt patient would benefit from TNK. Patient received TNK infusion and was admitted to the ICU for monitoring. Brain CT reveals no acute intracranial hemorrhage or midline shift there is mild to moderate diffuse age-related cerebral atrophy and moderate chronic small vessel ischemic change along with old right frontal parietal lobe infarcts. Chest X-ray reveals cardiomegaly without acute pulmonary process. CT angiography revealed no large vessel occlusion or aneurysm at the level of the [place] there is moderate severe plaque at the right carotid bulb and proximal internal carotid artery causing significant stenosis with lumen diameter narrowing measured around 70%. CBC was unremarkable with the exception of a platelet count of 135, sodium of 134 BUN of 31 creatinine of 1.34 glucose of 108. Troponin level is negative x 3. Patient was admitted to the hospital with a consult placed to neurology. Patient was admitted to the intensive care unit and is evaluated today resting in bed. Continues to have some mild left UE weakness and left facial droop. REVIEW OF SYSTEMS: CONSTITUTIONAL: No fever, no malaise, no fatigue. HEENT: No recent visual problems or hearing problems. Denied any sore throat. CARDIOVASCULAR: No chest pain, orthopnea, PND, no palpitations, no syncope. PULMONARY: No shortness of breath, no cough, no hemoptysis. GASTROINTESTINAL: No diarrhea, no nausea, no vomiting, no abdominal pain. NEUROLOGICAL: No headaches, no numbness. Reports left weakness and garbled speech. HEMATOLOGICAL: Denies any bleeding or petechiae. GENITOURINARY: Denies any burning micturition, frequency, or urgency. MUSCULOSKELETAL/RHEUMATOLOGICAL: Denies any joint pain, swelling, or any muscle pain. ENDOCRINE: Denies any polyuria or polydipsia. The rest of the 14-point review of systems is negative. PHYSICAL EXAMINATION: GENERAL: The patient is alert and oriented x3, not in any acute distress. Well developed, well nourished. HEENT: Pupils are round and equally reacting to light. EOMI. No scleral icterus. No conjunctival pallor. Normocephalic, atraumatic. No pharyngeal erythema. No thyromegaly. CARDIOVASCULAR: S1 and S2 present. No murmurs, rubs, or gallops. PULMONARY: Chest is clear to auscultation, no wheezing or crackles. ABDOMEN: Soft, nontender, nondistended, normoactive bowel sounds. No palpable organomegaly. MUSCULOSKELETAL: No joint swelling or deformity. EXTREMITIES: No cyanosis, clubbing, or pedal edema. NEUROLOGICAL: left weakness and left facial droop. SKIN: No rashes. Assessment and plan Acute ischemic stroke presenting with left-sided paresis, dysarthria and left sided facial droop which is resolved and is post TNK infusion Carotid artery stenosis with 70% diameter narrowing of the right carotid bulb/proximal internal carotid artery Hypertension History hyperlipidemia History of TIA 2023 Chronic kidney disease GI prophylaxis DVT prophylaxis Full Code Plan Repeat brain CT at 24 hours post TNK Neurology consultation Consult vascular for evaluation of right ICA stenosis Continue plavix daily and statin therapy PT/OT/Speech therapy consultation Continue ICU monitoring Repeat BMP in the AM Patient may benefit from event monitor on discharge to rule out any cardiac arrhythmia The impression and plan of care has been dictated by Jaelyn Guillen Nurse Practitioner as directed. Dr. Steve MD I have performed a history and physical examination and medical decision making of this patient, discussed the same with the dictator, and agree with the dictators assessment and plan as written, documented as a scribe. Based on total visit time, I have performed more than 50% of this visit. Past Medical History Past Medical History: CVA/TIA, Hyperlipidemia, Hypertension Additional Past Medical History / Comment(s): TIA 02/2024 History of Any Multi-Drug Resistant Organisms: None Reported Past Surgical History: Adenoidectomy, Section, Tonsillectomy Past Anesthesia/Blood Transfusion Reactions: No Reported Reaction Past Psychological History: No Psychological Hx Reported Smoking Status: Never smoker Past Alcohol Use History: None Reported Past Drug Use History: None Reported - Past Family History Father Family Medical History: Cancer, Renal Disease Additional Family Medical History / Comment(s): kidney cancer, 1 kidney removed. Mother Family Medical History: Congestive Heart Failure (CHF), Coronary Artery Disease (CAD), Dementia Medications and Allergies Home Medications Medication Instructions Recorded Confirmed Type Clopidogrel Bisulfate [Clopidogrel] 75 mg PO DAILY 04/06/24 07/08/24 History Montelukast [Singulair] 10 mg PO HS 04/06/24 07/08/24 History amLODIPine [Norvasc] 5 mg PO DAILY 04/06/24 07/08/24 History carvediloL [Coreg] 12.5 mg PO BID 04/06/24 07/08/24 History Atorvastatin Calcium [Lipitor] 40 mg PO HS 07/08/24 07/08/24 History Allergies Allergy/AdvReac Type Severity Reaction Status Date / Time aspirin Allergy Swelling Verified 07/08/24 08:28 iodine Allergy Rash/Hives Verified 07/08/24 08:28 Penicillins Allergy Rash/Hives Verified 07/08/24 08:28 Physical Exam Vitals: Vital Signs Temp Pulse Pulse Resp BP BP Pulse Ox 07/08/24 08:40 82 18 126/80 96 07/08/24 08:30 82 23 156/99 96 07/08/24 08:20 98.1 F 07/08/24 08:15 79 18 165/69 98 07/08/24 08:02 98.1 F 82 18 126/69 96 07/08/24 07:40 98.9 F 87 18 144/70 96 07/08/24 05:00 81 18 109/81 94 L 07/08/24 04:00 80 16 137/81 95 07/08/24 03:00 78 16 113/99 94 L 07/08/24 02:00 80 18 127/58 95 07/08/24 01:54 77 18 127/91 94 L 07/07/24 23:29 80 18 155/94 96 07/07/24 22:45 97.4 F L 72 18 146/84 96 Intake and Output 07/07/24 07/08/24 07/08/24 22:59 06:59 14:59 Output Total 0 Balance 0 Output: Urine 0 Other: Weight 76.385 kg Results CBC & Chem 7: 07/08/24 08:40 07/08/24 08:40 Labs: Abnormal Lab Results - Last 24 Hours (Table) 07/07/24 07/07/24 07/08/24 Range/Units 22:55 22:55 08:19 Plt Count 135 L (150-450) k/uL Lymphocytes # (1.0-4.8) k/uL Sodium 134 L (137-145) mmol/L BUN 31 H (7-17) mg/dL Creatinine 1.34 H (0.52-1.04) mg/dL Glucose 108 H (74-99) mg/dL POC Glucose (mg/dL) 146 H (70-110) mg/dL 07/08/24 Range/Units 08:40 Plt Count 139 L (150-450) k/uL Lymphocytes # 0.7 L (1.0-4.8) k/uL Sodium (137-145) mmol/L BUN (7-17) mg/dL Creatinine (0.52-1.04) mg/dL Glucose (74-99) mg/dL POC Glucose (mg/dL) (70-110) mg/dL Assessment and Plan Time with Patient: Greater than 30
--- NOTE | 2024-07-08 14:02 | P.CNNES ---
History of Present Illness Consult date: 07/08/24 Requesting physician: Nelson Hays Reason for Consult: stroke History of Present Illness: This is a 74 year-old woman who presents to the emergency department on 07/07/2024 because of left sided weakness, numbness and speech difficulty. She stated at night and unsure when but noticed left hand numbness then involved the entire left arm with weakness then left lower extremity. She also noticed speech difficulty. This was noticed by family members. She has prior history of TIA per patient and is on Plavix. Is not on ASA since allergic to it. Upon speaking with nurse practioner, patient was hospitalized at [facility] on 06/26/2023 till 06/28/2024 for stroke like symptoms and had stroke work-up. Had CT head which was negative for acute process. Had carotid duplex which was negative for significant stenosis. Pending MRI Brain as outpatient. Some of the work-up during this hospital visit: I reviewed the lab work-up. While in the ED she had CT head which was negative for acute process. A code stroke was activiated and ED physician spoke with Dr. Díaz and agreed to pursue with TNK. CT head: No acute intracranial hemorrhage or midline shift. Old right frontal/parietal lob infarct. I personally reviewed CT and agree with report. CTA head and neck: No large vessel occlusion or aneurysm at the level of [place]. Moderate to severe plaque right carotid bulb and proximal internal carotid artery causing significant stenosis with lumen diameter narrowing measured around 70%. Review of Systems As per HPI. Past Medical History Past Medical History: CVA/TIA, Hyperlipidemia, Hypertension Additional Past Medical History / Comment(s): TIA 02/2024 History of Any Multi-Drug Resistant Organisms: None Reported Past Surgical History: Adenoidectomy, Section, Tonsillectomy Past Anesthesia/Blood Transfusion Reactions: No Reported Reaction Past Psychological History: No Psychological Hx Reported Smoking Status: Never smoker Past Alcohol Use History: None Reported Past Drug Use History: None Reported - Past Family History Father Family Medical History: Cancer, Renal Disease Additional Family Medical History / Comment(s): kidney cancer, 1 kidney removed. Mother Family Medical History: Congestive Heart Failure (CHF), Coronary Artery Disease (CAD), Dementia Medications and Allergies Home Medications Medication Instructions Recorded Confirmed Type Clopidogrel Bisulfate [Clopidogrel] 75 mg PO DAILY 04/06/24 07/08/24 History Montelukast [Singulair] 10 mg PO HS 04/06/24 07/08/24 History amLODIPine [Norvasc] 5 mg PO DAILY 04/06/24 07/08/24 History carvediloL [Coreg] 12.5 mg PO BID 04/06/24 07/08/24 History Atorvastatin Calcium [Lipitor] 40 mg PO HS 07/08/24 07/08/24 History Allergies Allergy/AdvReac Type Severity Reaction Status Date / Time aspirin Allergy Swelling Verified 07/08/24 08:28 iodine Allergy Rash/Hives Verified 07/08/24 08:28 Penicillins Allergy Rash/Hives Verified 07/08/24 08:28 Physical Examination - Vital Signs Vital Signs: Vital Signs Temp Pulse Pulse Resp BP BP Pulse Ox 07/08/24 12:00 98.4 F 79 18 147/63 96 07/08/24 11:00 79 22 144/98 96 07/08/24 10:00 83 22 137/85 96 07/08/24 09:19 97 07/08/24 09:00 80 28 H 126/80 97 07/08/24 08:40 82 18 126/80 96 07/08/24 08:30 82 23 156/99 96 07/08/24 08:20 98.1 F 07/08/24 08:15 79 18 165/69 98 07/08/24 08:02 98.1 F 82 18 126/69 96 07/08/24 07:40 98.9 F 87 18 144/70 96 07/08/24 05:00 81 18 109/81 94 L 07/08/24 04:00 80 16 137/81 95 07/08/24 03:00 78 16 113/99 94 L 07/08/24 02:00 80 18 127/58 95 07/08/24 01:54 77 18 127/91 94 L 07/07/24 23:29 80 18 155/94 96 07/07/24 22:45 97.4 F L 72 18 146/84 96 FiO2 07/08/24 12:00 07/08/24 11:00 07/08/24 10:00 07/08/24 09:19 21 07/08/24 09:00 07/08/24 08:40 07/08/24 08:30 07/08/24 08:20 07/08/24 08:15 07/08/24 08:02 07/08/24 07:40 07/08/24 05:00 07/08/24 04:00 07/08/24 03:00 07/08/24 02:00 07/08/24 01:54 07/07/24 23:29 07/07/24 22:45 Intake and Output 07/07/24 07/08/24 07/08/24 22:59 06:59 14:59 Intake Total 540 Output Total 400 Balance 140 Intake: IV 20 Invasive Line 1 20 Oral 520 Output: Urine 400 Other: Voiding Method External Catheter # Bowel Movements 0 Weight 76.385 kg 74.4 kg GENERAL: The patient is lying in bed and is not in acute distress. NEUROLOGICAL: Higher mental function: The patient is awake, alert, oriented to self, place and time. Patient is following commands. No aphasia and no neglect. Cranial nerves: The pupils are round, equal and reactive to light and accommodation. Visual harris are full to confrontation throughout. Extraocular movement is intact no nystagmus is noted. Facial sensation is normal to touch throughout. The facial strength is left nasolabial flattening. Hearing is normal bilaterally to hand rub. Tongue is midline and moved [id number] without any difficulty. No dysarthria is noted. Shoulder shrug is normal bilaterally. Motor: The strength is left upper extremity is 4+ while left lower extremity is 4+ to 5-. Otherwise 5 over 5 throughout. Normal tone and bulk. Cerebellum: Normal finger to nose bilaterally. Sensation: Sensation is normal to touch throughout. Reflexes (right/left): 2+ throughout. Plantars are mute bilaterally. Results - Laboratory Findings CBC and BMP: 07/08/24 08:40 07/08/24 08:40 Abnormal Lab Findings: Abnormal Labs 07/07/24 07/07/24 07/08/24 22:55 22:55 08:19 Plt Count 135 L Lymphocytes # Sodium 134 L BUN 31 H Creatinine 1.34 H Glucose 108 H POC Glucose (mg/dL) 146 H 07/08/24 07/08/24 07/08/24 08:40 08:40 11:45 Plt Count 139 L Lymphocytes # 0.7 L Sodium 136 L BUN 27 H Creatinine 1.28 H Glucose 155 H POC Glucose (mg/dL) 171 H Assessment and Plan Assessment: This is a 74-year-old woman who presented emergency department because of left facial droop left-sided weakness and numbness. She received TNKase yesterday. Acute ischemic stroke with symptoms of left-sided weakness numbness and speech difficulty. Post IV TNK on 07/07/2024 Right ICA stenosis of about 70% on the CT angiography. Patient had 2 carotid d uplex at the outside facility at [facility] which was negative for any significant stenosis History of stroke over the right frontal more than parietal region History of TIA Hypertension Hyperlipidemia Plan: Post 24 hours after TNK will get a repeat CT of the head and if it is negative recommend starting the patient on Brilinta 90 mg 1 tablet twice daily. Patient failed Plavix. She allergic to aspirin Continue Lipitor 40 mg nightly that sufficient for secondary stroke prophylaxis She received one-time dose of Lipitor 80 mg I ordered MRI of the brain. Ordered 2D echo Lipid panel ordered and pending. From carotid stenosis vascular surgery is consulted Continue neurochecks Cardiac monitoring PT and OT and [employer] are consulted Recommend blood pressure control per IV TNK protocol For DVT for prophylaxis on SCD The rest of the medical management to primary and other specialist. The plan is discussed with the patient and the primary team nurse practitioner Thank you for the consultation. Time with Patient: Greater than 30
--- NOTE | 2024-07-08 15:49 | P.GSCN ---
History of Present Illness Consult date: 07/08/24 Reason for Consult: Carotid stenosis Requesting physician: Jaelyn Guillen History of present illness: This is a pleasant 74-year-old female with a history of previous CVA/TIA, hyperlipidemia hypertension and leaky cardiac valve who had presented to the emergency department yesterday evening with complaints of left-sided weakness, numbness and difficulty with speech. Apparently symptoms began around 10 PM yesterday evening and she was brought in for further evaluation. She had a CT of the brain negative for acute process with a history of old right frontal/parietal lobe infarct. Code stroke was activated and case was discussed with the neuro interventionalists who recommended pursuing with TNK. Patient was administered TNK and admitted to the ICU. She had a CTA of the head and neck reporting 70% stenosis of the right carotid artery. Vascular surgery was consulted for carotid stenosis. Apparently patient had similar symptoms on 06/26/2024 and went to [facility]. She had a stroke workup at that time with a CT of the brain that was negative for any acute findings with reported old right frontal and parietal lobe infarct.'s patient's family states that symptoms did not last long. They recommended discharge with follow-up with neurology. Also at that time she did have a carotid duplex that reported no hemodynamic significant stenosis. Patient's family states patient has been following with Dr. Gracia for ongoing neurosymptoms for at least a couple years. Currently most symptoms have resolved she still has some weakness in the left upper extremity and lower extremity. Speech is improved. Patient had been on Plavix 75 mg daily for some time as well as Lipitor 40 mg daily however not on aspirin secondary to allergy. Patient denies any visual loss, speech is pretty much back to baseline. Answers questions appropriately. Appears to have left facial droop. Currently denies any shortness of breath, chest pain, abdominal pain nausea or vomiting. Denies any headaches or visual changes at this time. Review of Systems A 14 point review systems was completed all pertinent positives and negatives as stated in the HPI. Past Medical History Past Medical History: CVA/TIA, Hyperlipidemia, Hypertension Additional Past Medical History / Comment(s): TIA 02/2024 History of Any Multi-Drug Resistant Organisms: None Reported Past Surgical History: Adenoidectomy, Section, Tonsillectomy Past Anesthesia/Blood Transfusion Reactions: No Reported Reaction Past Psychological History: No Psychological Hx Reported Smoking Status: Never smoker Past Alcohol Use History: None Reported Past Drug Use History: None Reported - Past Family History Father Family Medical History: Cancer, Renal Disease Additional Family Medical History / Comment(s): kidney cancer, 1 kidney removed. Mother Family Medical History: Congestive Heart Failure (CHF), Coronary Artery Disease (CAD), Dementia Medications and Allergies Home Medications Medication Instructions Recorded Confirmed Type Clopidogrel Bisulfate [Clopidogrel] 75 mg PO DAILY 04/06/24 07/08/24 History Montelukast [Singulair] 10 mg PO HS 04/06/24 07/08/24 History amLODIPine [Norvasc] 5 mg PO DAILY 04/06/24 07/08/24 History carvediloL [Coreg] 12.5 mg PO BID 04/06/24 07/08/24 History Atorvastatin Calcium [Lipitor] 40 mg PO HS 07/08/24 07/08/24 History Allergies Allergy/AdvReac Type Severity Reaction Status Date / Time aspirin Allergy Swelling Verified 07/08/24 08:28 iodine Allergy Rash/Hives Verified 07/08/24 08:28 Penicillins Allergy Rash/Hives Verified 07/08/24 08:28 Surgical - Exam Vital Signs Temp Pulse Resp BP Pulse Ox 97.4 F L 72 18 146/84 96 07/07/24 22:45 07/07/24 22:45 07/07/24 22:45 07/07/24 22:45 07/07/24 22:45 General appearance: The patient is alert, oriented, appears in no acute distress. HET: Head is normocephalic and atraumatic. Pupils are equal and reactive. Neck: Supple. Heart: Regular. Lungs: Equal expansion, normal respiratory effort. Abdomen: Soft, nontender, nondistended. Extremities: Normal skin color and turgor. Palpable radial and pedal pulses. Neurological: Speech appears fluent, answers questions appropriately. Appears to have left facial droop, left upper extremity and lower extremity weakness with good tone. Right upper extremity and lower extremity good strength and tone. Results - Labs 07/08/24 08:40 07/08/24 08:40 Abnormal Lab Results - Last 24 Hours (Table) 07/07/24 07/07/24 07/08/24 Range/Units 22:55 22:55 08:19 Plt Count 135 L (150-450) k/uL Lymphocytes # (1.0-4.8) k/uL Sodium 134 L (137-145) mmol/L BUN 31 H (7-17) mg/dL Creatinine 1.34 H (0.52-1.04) mg/dL Glucose 108 H (74-99) mg/dL POC Glucose (mg/dL) 146 H (70-110) mg/dL 07/08/24 07/08/24 07/08/24 Range/Units 08:40 08:40 11:45 Plt Count 139 L (150-450) k/uL Lymphocytes # 0.7 L (1.0-4.8) k/uL Sodium 136 L (137-145) mmol/L BUN 27 H (7-17) mg/dL Creatinine 1.28 H (0.52-1.04) mg/dL Glucose 155 H (74-99) mg/dL POC Glucose (mg/dL) 171 H (70-110) mg/dL Diabetes panel 07/07/24 07/08/24 Range/Units 22:55 08:40 Sodium 134 L 136 L (137-145) mmol/L Potassium 4.4 4.2 (3.5-5.1) mmol/L Chloride 99 101 (98-107) mmol/L Carbon Dioxide 25 23 (22-30) mmol/L BUN 31 H 27 H (7-17) mg/dL Creatinine 1.34 H 1.28 H (0.52-1.04) mg/dL Glucose 108 H 155 H (74-99) mg/dL Calcium 9.3 9.2 (8.4-10.2) mg/dL AST 25 26 (14-36) U/L ALT 13 16 (4-34) U/L Alkaline Phosphatase 87 95 (38-126) U/L Total Protein 7.4 7.3 (6.3-8.2) g/dL Albumin 4.0 3.9 (3.5-5.0) g/dL Calcium panel 07/07/24 07/08/24 Range/Units 22:55 08:40 Calcium 9.3 9.2 (8.4-10.2) mg/dL Albumin 4.0 3.9 (3.5-5.0) g/dL Pituitary panel 07/07/24 07/08/24 Range/Units 22:55 08:40 Sodium 134 L 136 L (137-145) mmol/L Potassium 4.4 4.2 (3.5-5.1) mmol/L Chloride 99 101 (98-107) mmol/L Carbon Dioxide 25 23 (22-30) mmol/L BUN 31 H 27 H (7-17) mg/dL Creatinine 1.34 H 1.28 H (0.52-1.04) mg/dL Glucose 108 H 155 H (74-99) mg/dL Calcium 9.3 9.2 (8.4-10.2) mg/dL Adrenal panel 07/07/24 07/08/24 Range/Units 22:55 08:40 Sodium 134 L 136 L (137-145) mmol/L Potassium 4.4 4.2 (3.5-5.1) mmol/L Chloride 99 101 (98-107) mmol/L Carbon Dioxide 25 23 (22-30) mmol/L BUN 31 H 27 H (7-17) mg/dL Creatinine 1.34 H 1.28 H (0.52-1.04) mg/dL Glucose 108 H 155 H (74-99) mg/dL Calcium 9.3 9.2 (8.4-10.2) mg/dL Total Bilirubin 0.7 1.1 (0.2-1.3) mg/dL AST 25 26 (14-36) U/L ALT 13 16 (4-34) U/L Alkaline Phosphatase 87 95 (38-126) U/L Total Protein 7.4 7.3 (6.3-8.2) g/dL Albumin 4.0 3.9 (3.5-5.0) g/dL - Imaging Comments: CTA head and neck reports no large vessel occlusion or aneurysm at the level of the [place]. Moderate to severe plaque right carotid bulb and proximal internal carotid artery causing significant stenosis with lumen diameter narrowing measuring around 70%. Consider direct catheter angiogram to further evaluate and/or treat. Brain CT reports no acute intracranial hemorrhage or midline shift. There is mild to moderate diffuse age-related cerebral atrophy and moderate chronic small vessel ischemic change along with old right frontal and parietal lobe infarct are all redemonstrated. No significant change from most recent prior MRI. Assessment and Plan Assessment: 1. Symptomatic right ICA stenosis 2. Acute stroke with left-sided weakness and aphasia status post TNK infusion 3. History of TIA/CVA with old right frontal/parietal infarct 4. Hypertension 5. Chronic kidney disease 6. Hyperlipidemia 7. Pancreatic lesions, patient scheduled further evaluation with [facility] Plan: 1. Continue statin, will need to resume Plavix or Brilinta once cleared by neurology 2. Continue with OT, PT and speech therapy 3. Repeat brain CT pending 4. Echocardiogram pending 5. Brain MRI pending 6. Further surgical recommendations forthcoming based on clinical course Thank you for this consultation, we will continue to follow. The impression and plan of care has been dictated as directed. Dr.Cuello Harper performed a history and examination of this patient, discussed the same with the dictator. I agree with the dictator's note ,documented as a scribe. Any additional findings or plans will be noted.
[2024-07-08] MEDS: amLODIPine 5 MG TAB PO SCH (15:51)
[2024-07-08 16:17] LABS: Glucose,Whole Blood 210 mg/dL (70-110)
[2024-07-08 16:46] LABS: Glucose,Whole Blood 186 mg/dL (70-110)
[2024-07-08] MEDS: ATORVASTATIN 40 MG TAB PO SCH (20:50)
[2024-07-08] MEDS: MONTELUKAST 10 MG TAB PO SCH (20:50)
[2024-07-08] MEDS ORDERED: ATORVASTATIN 80 MG TAB PO SCH (21:00)
[2024-07-08] MEDS ORDERED: HEPARIN SODIUM,PORCINE 5,000 UNIT/ML 1 ML VIAL SQ SCH (21:00)
[2024-07-09 03:18] LABS: HCT 40.1 % (34.0-46.0); HGB 12.7 gm/dL (11.4-16.0); MCH 30.6 pg (25.0-35.0); MCHC 31.7 g/dL (31.0-37.0); MCV 96.6 fL (80.0-100.0); Mean Platelet Volume 7.4; Platelet Count 135 k/uL (150-450); RBC 4.15 m/uL (3.80-5.40); RDW 13.2 % (11.5-15.5); WBC 6.3 k/uL (3.8-10.6)
[2024-07-09 03:28] LABS: African American GFR (CKD) 46 (>60 ml/min/1.73 sqM); Anion Gap 9 mmol/L; Blood Urea Nitrogen 28 mg/dL (7-17); Calcium 9.1 mg/dL (8.4-10.2); Carbon Dioxide 24 mmol/L (22-30); Chloride 103 mmol/L (98-107); Glucose 119 mg/dL (74-99); Non-African American GFR(CKD) 40 (>60 ml/min/1.73 sqM); Potassium 4.1 mmol/L (3.5-5.1); Sodium 136 mmol/L (137-145)
--- NOTE | 2024-07-09 05:43 | CT ---
EXAMINATION TYPE: CT brain wo con DATE OF EXAM: 07/08/2024 COMPARISON: CT brain from yesterday CLINICAL INDICATION: Female, 74 years old with history of Neuro deficit, acute, stroke suspected; PHH , To be done 22-24hrs post TPA infusion. TECHNIQUE: CT scan of the head is performed without contrast. CT DLP: 1095.7 mGycm Automated exposure control for dose reduction was used. FINDINGS: There is no acute intracranial hemorrhage or midline shift identified. There is mild diff use ventricular and sulcal prominence redemonstrated. There is [id number] low-attenuation in t he periventricular white matter redemonstrated. Old infarcts in the right MCA distribution are again seen. Bilateral basal ganglia calcifications are redemonstrated. The globes are intact and the visual ized sinuses are clear. IMPRESSION: No acute intracranial hemorrhage or midline shift. There is mild diffuse age-related ce rebral atrophy and mild to moderate chronic small vessel ischemic change along with old right-sided i nfarcts are all redemonstrated. No significant change from one day earlier. MRI noted more sensitive in evaluating acute ischemia. [facility], , 07/09/2024 5:41 AM
[2024-07-09 08:58] LABS: Chol/HDL Ratio 2.16 Ratio; LDL Cholesterol,Calculated 78.7 mg/dL (0.0-131.0); VLDL Calculation 11.94 mg/dL (5.00-40.00)
[2024-07-09] MEDS: amLODIPine 5 MG TAB PO SCH (09:28)
[2024-07-09] MEDS: FAMOTIDINE 20 MG/2 ML VIAL IV SCH (09:28)
--- NOTE | 2024-07-09 10:27 | P.PN ---
Subjective Progress Note Date: 07/09/24 Principal diagnosis: ICA stenosis, acute stroke Patient seen and examined today as a follow-up. She remains in the ICU. No new focal deficits. Patient was started on Brilinta 90 mg twice daily. Repeat CT scan with no acute findings. MRI pending. Objective - Vital Signs Vital signs: Vital Signs Temp 97.8 F 07/09/24 08:00 Pulse 63 07/09/24 09:00 Resp 17 07/09/24 09:00 BP 140/75 07/09/24 09:00 Pulse Ox 100 07/09/24 09:00 FiO2 21 07/08/24 09:19 Intake & Output 07/08/24 07/09/24 07/09/24 18:59 06:59 18:59 Intake Total 550 60 210 Output Total 800 500 250 Balance -250 -440 -40 Weight 74.4 kg 72.7 kg Intake: IV 30 30 10 Invasive Line 1 30 30 10 Oral 520 30 200 Output: Urine 800 500 250 Other: Voiding Method External Catheter External Catheter # Voids 1 # Bowel Movements 1 1 - Exam General appearance: The patient is alert, oriented, appears in no acute distress. HET: Head is normocephalic and atraumatic. Pupils are equal and reactive. Neck: Supple. No audible bruit. Heart: Regular. Lungs: Equal expansion, normal respiratory effort. Abdomen: Soft, nontender, nondistended. Extremities: Normal skin color and turgor. Neurological: Speech appears fluent, answers questions appropriately. Appears to have left facial droop, left upper extremity and lower extremity weakness with good tone. Right upper extremity and lower extremity good strength and tone. - Labs CBC & Chem 7: 07/09/24 02:47 07/09/24 02:47 Labs: Abnormal Lab Results - Last 24 Hours (Table) 07/08/24 07/08/24 07/08/24 Range/Units 11:45 16:16 16:44 Plt Count (150-450) k/uL Sodium (137-145) mmol/L BUN (7-17) mg/dL Creatinine (0.52-1.04) mg/dL Glucose (74-99) mg/dL POC Glucose (mg/dL) 171 H 210 H 186 H (70-110) mg/dL HDL Cholesterol (40.00-60.00) mg/dL 07/09/24 07/09/24 Range/Units 02:47 02:47 Plt Count 135 L (150-450) k/uL Sodium 136 L (137-145) mmol/L BUN 28 H (7-17) mg/dL Creatinine 1.34 H (0.52-1.04) mg/dL Glucose 119 H (74-99) mg/dL POC Glucose (mg/dL) (70-110) mg/dL HDL Cholesterol 78.40 H (40.00-60.00) mg/dL Assessment and Plan Assessment: 1. Symptomatic right ICA stenosis 2. Acute stroke with left-sided weakness and aphasia status post TNK infusion 3. Right thyroid nodule, benign pathology from 04/22/2024 4. 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 Hypertension 6. Chronic kidney disease 7. Hyperlipidemia 8. Pancreatic lesions, patient scheduled further evaluation with [facility] Plan: 1. Continue statin, continue Brilinta as ordered 2. Continue with OT, PT and speech therapy 3. Brain MRI pending 4. Echocardiogram pending 5. Continue with recommendations from neurology 6. Consult cardiology for cardiac clearance for right TCAR, possible carotid endarterectomy if patient not candidate 7. Tentatively plan for right transcarotid artery revascularization early next week as inpatient Thank you for this consultation, we will continue to follow. The impression and plan of care has been dictated as directed. Dr. Maggi Harper performed a history and examination of this patient, discussed the same with the dictator. I agree with the dictator's note ,documented as a scribe. Any a dditional findings or plans will be noted.
--- NOTE | 2024-07-09 10:29 | CA ---
Transthoracic Echo Report Name: Micaela Aguila Age: 74 Gender: F : 1950 Exam Date: 07/08/2024 15:49 Exam Location: [facility] Ht (in): 59 Wt (lb): 164 Ordering Physician: Nilay Rodriguez MD Attending/Referring Phys: Parking Lot Manager Rosy Mendez RDCS Procedure CPT: Indications: stroke Cardiac Hx: Technical Quality: Good Contrast 1: Agitated Saline Total Dose (mL): 10 Contrast 2: Total Dose (mL): MEASUREMENTS (Male / Female) Normal Values 2D ECHO LV Diastolic Diameter PLAX 4.8 cm 4.2 - 5.9 / 3.9 - 5.3 cm LV Systolic Diameter PLAX 4.0 cm IVS Diastolic Thickness 1.0 cm 0.6 - 1.0 / 0.6 - 0.9 cm LVPW Diastolic Thickness 1.2 cm 0.6 - 1.0 / 0.6 - 0.9 cm LV Relative Wall Thickness 0.5 LVOT Diameter 1.9 cm LV Diastolic Volume MOD BP 90.9 cm??? 67 - 155 / 56 - 104 cm??? LV Systolic Volume MOD BP 26.1 cm??? 22 - 58 / 19 - 49 cm??? LV Ejection Fraction MOD BP 71.3 % >= 55 % LV Cardiac Index MOD BP 2674.1 cm???/min???m??? LV Diastolic Volume MOD 4C 84.2 cm??? LV Systolic Volume MOD 4C 17.7 cm??? LV Ejection Fraction MOD 4C 79.0 % LV Cardiac Index MOD 4C 2740.9 cm???/min???m??? LV Diastolic Length 4C 7.2 cm LV Systolic Length 4C 5.7 cm LV Diastolic Volume MOD 2C 91.6 cm??? LV Systolic Volume MOD 2C 37.8 cm??? LV Ejection Fraction MOD 2C 58.7 % LV Cardiac Index MOD 2C 2217.7 cm???/min???m??? LV Diastolic Length 2C 7.8 cm LV Systolic Length 2C 5.9 cm LA Volume 40.8 cm??? 18 - 58 / 22 - 52 cm??? LA Volume Index 22.7 cm???/m??? 16 - 28 cm???/m??? DOPPLER AV Peak Velocity 134.7 cm/s AV Peak Gradient 7.3 mmHg AV Mean Velocity 100.8 cm/s AV Mean Gradient 5.1 mmHg AV Velocity Time Integral 29.0 cm LVOT Peak Velocity 81.6 cm/s LVOT Peak Gradient 2.7 mmHg LVOT Velocity Time Integral 17.7 cm LVOT Stroke Volume 51.5 cm??? LVOT Stroke Volume Index 30.4 ml/m??? LVOT Cardiac Index 2122.2 cm???/min???m??? AV Area Cont Eq vti 1.8 cm??? AV Area Cont Eq pk 1.8 cm??? MV Peak Velocity 106.9 cm/s MV Peak Gradient 4.6 mmHg MV Mean Velocity 71.2 cm/s MV Mean Gradient 2.4 mmHg MV Velocity Time Integral 28.0 cm MV Area PHT 4.0 cm??? Mitral E Point Velocity 75.9 cm/s Mitral A Point Velocity 95.0 cm/s Mitral E to A Ratio 0.8 MV Deceleration Time 167.0 ms TR Peak Velocity 210.5 cm/s TR Peak Gradient 17.7 mmHg Right Atrial Pressure 5.0 mmHg Pulmonary Artery Systolic Pressu 22.7 mmHg Right Ventricular Systolic Press 22.7 mmHg PV Peak Velocity 94.2 cm/s PV Peak Gradient 3.6 mmHg FINDINGS Left Ventricle Left ventricular ejection fraction is estimated at 60-65 %. Mildly increased posterior wall thickness. Left ventricular cavity size normal. No obvious regional wall motion abnormalities. Right Ventricle Normal right ventricular size and function. Right ventricular systolic pressure within normal limits. Right Atrium Normal right atrial size. Negative agitated saline bubble study for right to left shunt. Left Atrium Normal left atrial size. Mitral Valve Mild prolapse of the anterior mitral valve leaflet. No mitral stenosis. Mild- to-moderate mitral regurgitation. Aortic Valve Trileaflet aortic valve. Aortic valve sclerosis. No aortic valve stenosis or regurgitation. Tricuspid Valve Structurally normal tricuspid valve. No tricuspid stenosis. Mild tricuspid regurgitation. Pulmonic Valve Structurally normal pulmonic valve. No pulmonic stenosis. Mild pulmonic regurgitation. Pericardium No pericardial effusion. Aorta Normal size aortic root and proximal ascending aorta. CONCLUSIONS Left ventricular ejection fraction is estimated at 60-65 %. No obvious regional wall motion abnormalities. Normal right ventricular size and function. [id number] mitral regurgitation. Mild tricuspid regurgitation. Aortic valve sclerosis. Previewed by: Dr Clarence Patrick (Electronically Signed) Final Date: 09 July 2024 10:28
[2024-07-09] MEDS: TICAGRELOR 90 MG TAB PO SCH (11:37)
--- NOTE | 2024-07-09 13:30 | P.PN ---
Subjective Progress Note Date: 07/09/24 I am following-up with patient and she feels drastically better today compared to yesterday. Objective - Vital Signs Vital signs: Vital Signs Temp 97.8 F 07/09/24 08:00 Pulse 65 07/09/24 11:00 Resp 21 07/09/24 11:00 BP 158/67 07/09/24 11:00 Pulse Ox 100 07/09/24 11:00 FiO2 21 07/08/24 09:19 Intake & Output 07/08/24 07/09/24 07/09/24 18:59 06:59 18:59 Intake Total 550 60 210 Output Total 800 500 250 Balance -250 -440 -40 Weight 74.4 kg 72.7 kg Intake: IV 30 30 10 Invasive Line 1 30 30 10 Oral 520 30 200 Output: Urine 800 500 250 Other: Voiding Method External Catheter External Catheter External Catheter # Voids 1 1 # Bowel Movements 1 1 - Exam GENERAL: The patient is lying in bed and is not in acute distress. NEUROLOGICAL: Higher mental function: The patient is awake, alert, oriented to self, place and time. Patient is following commands. No aphasia and no neglect. Cranial nerves: The pupils are round, equal and reactive to light and accommodation. Visual harris are full to confrontation throughout. Extraocular movement is intact no nystagmus is noted. Facial sensation is normal to touch throughout. The facial strength is left nasolabial flattening (stated old). Hearing is normal bilaterally to hand rub. Tongue is midline and moved [id number] without any difficulty. No dysarthria is noted. Shoulder shrug is normal bilaterally. Motor: The strength is 5 over 5 throughout. Normal tone and bulk. Cerebellum: Normal finger to nose bilaterally. Sensation: Sensation is normal to touch throughout. Reflexes (right/left): 2+ throughout. Plantars are mute bilaterally. Some of the work-up during this hospital visit: Lipid panel is triglyceride 59, cholesterol is 169, LDL 78 and HDL 78 Hemoglobin A1c is 5.6. While in the ED she had CT head which was negative for acute process. A code stroke was activiated and ED physician spoke with Dr. Díaz and agreed to pursue with TNK. CT head: No acute intracranial hemorrhage or midline shift. Old right frontal/parietal lob infarct. I personally reviewed CT and agree with report. CTA head and neck: No large vessel occlusion or aneurysm at the level of [place]. Moderate to severe plaque right carotid bulb and proximal internal carotid artery causing significant stenosis with lumen diameter narrowing measured around 70%. Repeat CT head 24 hours post TNK: No acute intracranial hemorrhage or midline shift. There is mild diffuse age-related cerebral atrophy and mild to moderate chronic small vessel ischemic change along with old right-sided infarcts are all redemonstrated. No significant change from 1 day earlier. I personally reviewed the CT and agree there is no acute or subacute stroke. The echo is reported as left ventricular ejection fraction of 60 to 65%. Normal right ventricular size and function. Mild to moderate mitral regurgitation. Mild tricuspid regurgitation. Aortic valve sclerosis. - Labs CBC & Chem 7: 07/09/24 02:47 07/09/24 02:47 Labs: Abnormal Lab Results - Last 24 Hours (Table) 07/08/24 07/08/24 07/09/24 Range/Units 16:16 16:44 02:47 Plt Count (150-450) k/uL Sodium 136 L (137-145) mmol/L BUN 28 H (7-17) mg/dL Creatinine 1.34 H (0.52-1.04) mg/dL Glucose 119 H (74-99) mg/dL POC Glucose (mg/dL) 210 H 186 H (70-110) mg/dL HDL Cholesterol 78.40 H (40.00-60.00) mg/dL 07/09/24 Range/Units 02:47 Plt Count 135 L (150-450) k/uL Sodium (137-145) mmol/L BUN (7-17) mg/dL Creatinine (0.52-1.04) mg/dL Glucose (74-99) mg/dL POC Glucose (mg/dL) (70-110) mg/dL HDL Cholesterol (40.00-60.00) mg/dL Assessment and Plan Assessment: This is a 74-year-old woman who presented emergency department because of left facial droop left-sided weakness and numbness. She received TNKase yesterday. Acute ischemic stroke with symptoms of left-sided weakness numbness and speech difficulty. Post IV TNK on 07/07/2024----Today her symptoms resolved and repeat CT head is negative for acute process. Etiology of stroke probable due to symptomatic right ICA stenosis Right ICA stenosis of about 70% on the CT angiography. Patient had 2 carotid duplex at the outside facility at [facility] which was negative for any significant stenosis History of stroke over the right frontal more than parietal region History of TIA Hypertension Hyperlipidemia Plan: Recommend starting on Brilinta 90 mg 1 tablet twice daily. Patient failed Plavix. She allergic to aspirin Continue Lipitor 40 mg nightly that sufficient for secondary stroke prophylaxis Pending MRI of the brain. From carotid stenosis vascular surgery is consulted. They are planning of intervention this Friday as inpatient per vascular attending. Continue neurochecks Cardiac monitoring PT and OT and [employer] are consulted Recommend blood pressure control per IV TNK protocol For DVT for prophylaxis on The rest of the medical management to primary and other specialist. Dr. Herrera will resume neurology service tomorrow A.M. Time with Patient: Less than 30
--- NOTE | 2024-07-09 14:42 | P.PN ---
Subjective Progress Note Date: 07/09/24 Principal diagnosis: Acute ischemic CVA, status post TNK treatment Patient is a 74-year-old female with past medical history significant for hypertension, hyperlipidemia, CVA/TIA, chronic kidney disease. Presented to the emergency department via EMS late last night at 2245 with CVA-like symptoms. NIH reported at 9. Code stroke initiated. Brain CT did not show any evidence of acute intracranial hemorrhage or midline shift. Mild to moderate diffuse age- related cerebral atrophy and moderate chronic small vessel ischemic changes along with old right frontal and parietal lobe infarcts redemonstrated. CT angio of head and neck did not show any large vessel occlusions or aneurysm at the level of the [place]. Moderate to severe plaque at the right carotid bulb and proximal internal carotid artery causing significant stenosis with lumen diameter narrowing measured around 70%. On-call neurointerventional and ER physician felt patient would benefit from TNK infusion. ICU consult placed for neuromonitoring status post TNK. I am evaluating this patient in the trauma bay 2. Patient is alert and oriented x 3. Continues to have some mild to moderate dysarthria. Left-sided hemiparesis has resolved. Denies headaches, vision changes, nausea or vomiting, sensory loss. No limb ataxia outside of weakness. Denies history of seizures or migraines. Remaining neurological exam is nonfocal. Family is at bedside, and supplements HPI. At 10 pm, patient developed sudden left-sided weakness and "garbled" speech. She had a fall from the couch and landed on her face. There is some dried blood in the perioral region. No active bleeding. According to the , patient was just recently admitted at [facility] for a "mini stroke". No throm bolytics were given at this time. She was discharged on June 28. Also, she recently had a follow-up visit on Friday with her neurologist, Dr. Nikkie Gracia. Patient does have history of previous CVA. Not on any anticoagulants, but does take Plavix. Did have a recent brain MRI on 06/05/2024 did not show any evidence of intracranial mass or subacute/acute infarct. There were regions of encephalomalacia with gliosis from prior ischemic injury involving the right frontal and parietal lobes. CBC: WBC count 4.7, hemoglobin 13.1, hematocrit 40.8, platelets 135. PT 10.8, INR 1, APTT 22.7. CMP: Sodium 134, potassium 4.4, chloride 99, serum bicarb 25, BUN 31, creatinine 1.34, glucose 108. LFTs not elevated. Troponin less than 0.012. EKG: Sinus rhythm with first-degree AV block and frequent PVCs. Current vital signs: Afebrile, heart rate 77 bpm, blood pressure 127/91 mmHg, nontachypneic, SpO2 reading 94% on room air. Patient was seen today on 07/09/2024, remains in the ICU, feels drastically better today compared to yesterday. Patient is being started on Brilinta 90 mg twice daily, mostly because she failed Plavix. Patient is allergic to aspirin she will be placed on Lipitor and she has an MRI of the brain pending. For her carotid stenosis, vascular was consulted and planning intervention next Friday. In the meantime the patient is continuing to do well. WBC count is 6.3 hemoglobin 12.7 electrolytes are normal BUN is 28 creatinine 1.34 Objective - Vital Signs Vital signs: Vital Signs Temp 97.8 F 07/09/24 08:00 Pulse 65 07/09/24 11:00 Resp 07/09/24 11:00 BP 158/67 07/09/24 11:00 Pulse Ox 100 07/09/24 11:00 FiO2 07/08/24 09:19 Intake & Output 07/08/24 07/09/24 07/09/24 18:59 06:59 18:59 Intake Total 550 60 210 Output Total 800 500 250 Balance -250 -440 -40 Weight 74.4 kg 72.7 kg Intake: IV 30 30 10 Invasive Line 1 30 30 10 Oral 520 30 200 Output: Urine 800 500 250 Other: Voiding Method External Catheter External Catheter External Catheter # Voids 1 1 # Bowel Movements 1 1 - Exam GENERAL EXAM: Alert, 74-year-old female, in no distress on room air HEAD: Normocephalic and atraumatic. EYES: Normal reaction of pupils, equal size. No nystagmus. Nonicteric sclera. NOSE: Clear with pink turbinates. Dried blood in the perioral area. No active epistaxis THROAT: No erythema or exudates. NECK: No masses, no JVD. CHEST: No chest wall deformity. LUNGS: Equal air entry with no crackles, wheeze, rhonchi or dullness. On room air. No conversational dyspnea or accessory muscle use.. CVS: S1 and S2 normal with no audible murmur, frequent ectopy. No extra heart sounds ABDOMEN: No hepatosplenomegaly, active bowel sounds, no guarding or rigidity. SKIN: No rashes CENTRAL NERVOUS SYSTEM: No gross focal neurologic deficit EXTREMITIES: There is no peripheral edema, clubbing, or cyanosis. Peripheral pulses are intact. - Labs CBC & Chem 7: 07/09/24 02:47 07/09/24 02:47 Labs: Abnormal Lab Results - Last 24 Hours (Table) 07/08/24 07/08/24 07/09/24 Range/Units 16:16 16:44 02:47 Plt Count (150-450) k/uL Sodium 136 L (137-145) mmol/L BUN 28 H (7-17) mg/dL Creatinine 1.34 H (0.52-1.04) mg/dL Glucose 119 H (74-99) mg/dL POC Glucose (mg/dL) 210 H 186 H (70-110) mg/dL HDL Cholesterol 78.40 H (40.00-60.00) mg/dL 07/09/24 Range/Units 02:47 Plt Count 135 L (150-450) k/uL Sodium (137-145) mmol/L BUN (7-17) mg/dL Creatinine (0.52-1.04) mg/dL Glucose (74-99) mg/dL POC Glucose (mg/dL) (70-110) mg/dL HDL Cholesterol (40.00-60.00) mg/dL Assessment and Plan Assessment: Impression: Acute ischemic stroke with symptoms of left-sided weakness numbness and speech difficulty. Post IV TNK on 07/07/2024 right ICA stenosis Right ICA stenosis of about 70% on the CT angiography. History of stroke over the right frontal more than parietal region History of TIA Hypertension Hyperlipidemia Recommendation: Continue Brilinta Continue Lipitor Cannot use aspirin patient is allergic to aspirin Brain MRI is pending Consider transferring the patient out of the ICU to a monitored bed and selective Continue to monitor blood pressure Will continue to follow, patient is being evaluated by vascular for possible carotid endarterectomy next week. Prognosis remains relatively guarded. Time with Patient: Less than 30
--- NOTE | 2024-07-09 14:49 | P.PN ---
Subjective Progress Note Date: 07/09/24 This is a 74-year-old female with medical history significant for stroke, hypertension, hyperlipidemia. Patient had a prior TIA in 2023. Patient presents to the ER at 2245 yesterday evening with last known well of 10 PM. Patient arrived by EMS for suspected stroke per family they report patient had fallen off the couch; and noted to have weakness of the left arm and leg as well as garbled speech. Patient was at [facility] last week for TIA and discharged on the . She was admitted from June 26 to June 28, for numbness and paresthesias of the left hand which had resolved prior to coming to the ER. Patient's brain CT there did show a hypodensity in the right parietal region which may be age-indeterminate. Echocardiogram completed at [facility] reveals an EF of 50 to 55% with no intra-arterial shunt on bubble study. Her preliminary carotid duplex shows no evidence of hemodynamically significant stenosis. Patient was discharged on Plavix and Lipitor and was recommended for outpatient MRI and MRA of the brain. Noted that she did have a brain MRI completed on June 05, 2024 which reveals no evidence of intracranial mass/acute/subacute infarct. There is regions of encephalomalacia with gliosis from prior ischemic injury involving the right frontal and parietal lobes there is nonspecific white matter changes likely related to small vessel ischemic disease. She followed up with her primary Neurologist Dr. Romulo Gracia last Friday. She reports now for stroke like symptoms and found to have NIH score of 9 and a code stroke was initiated. Neurosurgery felt patient would benefit from TNK. Patient received TNK infusion and was admitted to the ICU for monitoring. Brain CT reveals no acute intracranial hemorrhage or midline shift there is mild to moderate diffuse age-related cerebral atrophy and moderate chronic small vessel ischemic change along with old right frontal parietal lobe infarcts. Chest X-ray reveals cardiomegaly without acute pulmonary process. CT angiography revealed no large vessel occlusion or aneurysm at the level of [place] there is moderate severe plaque at the right carotid bulb and proximal internal carotid artery causing significant stenosis with lumen diameter narrowing measured around 70%. CBC was unremarkable with the exception of a platelet count of 135, sodium of 134 BUN of 31 creatinine of 1.34 glucose of 108. Troponin level is negative x 3. Patient was admitted to the hospital with a consult placed to neurology. Patient was admitted to the intensive care unit and is evaluated today resting in bed. Continues to have some mild left UE weakness and left facial droop. 07/09/2024 Patient is evaluated in follow-up in the intensive care unit. Her symptoms of left weakness as well as her left facial droop are significantly improved. Vascular surgery has evaluate this patient and is planning for a right carotid endarterectomy next Friday. Patient has been started on Brilinta 90 mg twice daily patient did receive her first dose today. Patient will be going for a brain MRI today. Cardiogram reveals an EF of 60 to 65% with mild to moderate MR and mild tricuspid regurgitation. Patient had repeat brain CT post tenecteplase without signs of acute hemorrhage midline shift and there is old right-sided infarcts redemonstrated. REVIEW OF SYSTEMS: CONSTITUTIONAL: No fever, no malaise, no fatigue. HEENT: No recent visual problems or hearing problems. Denied any sore throat. CARDIOVASCULAR: No chest pain, orthopnea, PND, no palpitations, no syncope. PULMONARY: No shortness of breath, no cough, no hemoptysis. GASTROINTESTINAL: No diarrhea, no nausea, no vomiting, no abdominal pain. NEUROLOGICAL: No headaches, no numbness. Reports left weakness and garbled speech. PHYSICAL EXAMINATION: GENERAL: The patient is alert and oriented x3, not in any acute distress. Well developed, well nourished. HEENT: Pupils are round and equally reacting to light. EOMI. No scleral icterus. No conjunctival pallor. Normocephalic, atraumatic. No pharyngeal erythema. No thyromegaly. CARDIOVASCULAR: S1 and S2 present. No murmurs, rubs, or gallops. PULMONARY: Chest is clear to auscultation, no wheezing or crackles. ABDOMEN: Soft, nontender, nondistended, normoactive bowel sounds. No palpable organomegaly. MUSCULOSKELETAL: No joint swelling or deformity. EXTREMITIES: No cyanosis, clubbing, or pedal edema. NEUROLOGICAL: left weakness and left facial droop. SKIN: No rashes. Assessment and plan Acute ischemic stroke presenting with left-sided paresis, dysarthria and left sided facial droop which is resolved and is post TNK infusion Carotid artery stenosis with 70% diameter narrowing of the right carotid bulb/proximal internal carotid artery Hypertension History hyperlipidemia History of TIA 2024 Chronic kidney disease GI prophylaxis DVT prophylaxis Full Code Plan Neurology consultation Consult vascular for evaluation of right ICA stenosis Vascular planning on right carotid enterectomy next Friday Patient has been started on brilinta 90 mg twice daily PT/OT/Speech therapy consultation Continue ICU monitoring Repeat BMP in the AM The impression and plan of care has been dictated by Jaelyn Guillen, Nurse Practitioner as directed. Dr. Steve MD I have performed a history and physical examination and medical decision making of this patient, discussed the same with the dictator, and agree with the dictators assessment and plan as written, documented as a scribe. Based on total visit time, I have performed more than 50% of this visit. Objective - Vital Signs Vital signs: Vital Signs Temp 97.8 F 07/09/24 08:00 Pulse 65 07/09/24 11:00 Resp 21 07/09/24 11:00 BP 158/67 07/09/24 11:00 Pulse Ox 100 07/09/24 11:00 FiO2 21 07/08/24 09:19 Intake & Output 07/08/24 07/09/24 07/09/24 18:59 06:59 18:59 Intake Total 550 60 210 Output Total 800 500 250 Balance -250 -440 -40 Weight 74.4 kg 72.7 kg Intake: IV 30 30 10 Invasive Line 1 30 30 10 Oral 520 30 200 Output: Urine 800 500 250 Other: Voiding Method External Catheter External Catheter External Catheter # Voids 1 1 # Bowel Movements 1 1 - Labs CBC & Chem 7: 07/09/24 02:47 07/09/24 02:47 Labs: Abnormal Lab Results - Last 24 Hours (Table) 07/08/24 07/08/24 07/09/24 Range/Units 16:16 16:44 02:47 Plt Count (150-450) k/uL Sodium 136 L (137-145) mmol/L BUN 28 H (7-17) mg/dL Creatinine 1.34 H (0.52-1.04) mg/dL Glucose 119 H (74-99) mg/dL POC Glucose (mg/dL) 210 H 186 H (70-110) mg/dL HDL Cholesterol 78.40 H (40.00-60.00) mg/dL 07/09/24 Range/Units 02:47 Plt Count 135 L (150-450) k/uL Sodium (137-145) mmol/L BUN (7-17) mg/dL Creatinine (0.52-1.04) mg/dL Glucose (74-99) mg/dL POC Glucose (mg/dL) (70-110) mg/dL HDL Cholesterol (40.00-60.00) mg/dL Assessment and Plan Time with Patient: Less than 30
--- NOTE | 2024-07-09 15:04 | MR ---
EXAMINATION TYPE: MR brain wo con DATE OF EXAM: 07/09/2024 2:50 PM COMPARISON: 06/05/2024. CLINICAL INDICATION: Female, 74 years old with history of stroke. left sided weakness; PHH, Left annetta ed weakness TECHNIQUE: Multi planar, multi sequence imaging was performed through the brain including: T1, T2, In version recovery, Diffusion weighted imaging, and gradient echo imaging. No gadolinium was given. FINDINGS: Restricted diffusion with high DWI low ADC signal within the multiple areas of the cortex i n the right frontal lobe and within the right basal ganglia. Single focus of right temporal lobe rest ricted effusion also identified.The west-white junctions, ventricular system, basal cisterns appear u nremarkable. Scattered foci of high T2 signal intensity are seen within the periventricular white m atter. Midline structures show no abnormality. Scattered susceptibility foci in the right frontal lob e compatible with prior microhemorrhage which is new from prior MRI 06/05/2024 in located within the r estricted diffusion within the right basal ganglia. The bone marrow signal is within normal limits. Paranasal sinuses and mastoid air cells: No significant paranasal sinus disease. Visualized orbits: Orbital contents are intact. IMPRESSION: 1. Acute/subacute CVA involving the right basal ganglia and within the cortex within the right fronta l lobe. Petechial hemorrhage within the right basal ganglia demonstrated on susceptibility weighted i maging. 2. Nonspecific white matter changes, likely secondary to small vessel ischemic disease. [facility], , 07/09/2024 3:02 PM
--- NOTE | 2024-07-09 15:38 | P.CRDCN ---
History of Present Illness History of present illness: HISTORY OF PRESENTING ILLNESS This is a pleasant 74-year-old with past medical history significant for hypertension, hyperlipidemia, stroke, TIA in 2020 for who presented secondary to left sided weakness and garbled speech. Patient had recent echocardiogram at [facility] where she was June 26 through June 28 for TIA type symptoms. Bubble study showed negative with EF 50 to 55%. Her carotid duplex showed no significant stenosis and patient was discharged home. Patient had symptoms and presented to the emergency department and NIH score of 9 and therefore TNK was given and patient had resolution of symptoms. Patient had CT angiography which revealed no large vessel occlusion with moderate to severe plaque of the right carotid bulb and 70% stenosis. She follows in the office with Dr. Sal. She states she had a stress test approximately a month ago with no significant findings. She denies any chest pain or pressure. She does have chronic dyspnea on exertion which she attributes to deconditioning. She states she cannot walk up a flight of stairs without stopping however this is mainly related to deconditioning she states. Cardiology is asked to evaluate for preoperative clearance REVIEW OF SYSTEMS At the time of my exam: CONSTITUTIONAL: Denies fever or chills. CARDIOVASCULAR: Denies chest pain, +shortness of breath, no orthopnea, PND or pa lpitations. RESPIRATORY: Denies cough. GASTROINTESTINAL: Denies abdominal pain, diarrhea, constipation, nausea or vomiting. MUSCULOSKELETAL: Denies myalgias. NEUROLOGIC: Denies numbness, tingling or weakness. ENDOCRINE: Denies fatigue, weight change, polydipsia or polyurina. GENITOURINARY: Denies burning, hematuria or urgency with micturation. HEMATOLOGIC: Denies history of anemia or bleeding. PHYSICAL EXAMINATION Vital signs reviewed. CONSTITUTIONAL: No apparent distress. HEENT: Head is normocephalic. Pupils are equal, round. Sclerae anicteric. Mucous membranes of the mouth are moist. No JVD. No carotid bruit. CHEST EXAMINATION: Lungs are clear to auscultation. No chest wall tenderness is noted on palpation or with deep breathing. HEART EXAMINATION: Regular rate and rhythm. S1, S2 heard. No murmurs, gallops or rub. ABDOMEN: Soft, nontender. Positive bowel sounds. EXTREMITIES: 2+ peripheral pulses, no lower extremity edema and no calf tenderness. NEUROLOGIC EXAMINATION: Patient is awake, alert and oriented x3. ASSESSMENT Acute stroke status post TNK Symptomatic carotid artery stenosis Hypertension Hyperlipidemia Dyspnea Preoperative cardiovascular exam PLAN Patient with no significant angina type symptoms and echo showing preserved EF and no significant heart failure type symptoms. Patient with recent stress testing which was unrevealing. Patient is cleared from a cardiology standpoint for surgery. Past Medical History Past Medical History: CVA/TIA, Hyperlipidemia, Hypertension Additional Past Medical History / Comment(s): TIA 02/2024 History of Any Multi-Drug Resistant Organisms: None Reported Past Surgical History: Adenoidectomy, Section, Tonsillectomy Past Anesthesia/Blood Transfusion Reactions: No Reported Reaction Past Psychological History: No Psychological Hx Reported Smoking Status: Never smoker Past Alcohol Use History: None Reported Past Drug Use History: None Reported - Past Family History Father Family Medical History: Cancer, Renal Disease Additional Family Medical History / Comment(s): kidney cancer, 1 kidney removed. Mother Family Medical History: Congestive Heart Failure (CHF), Coronary Artery Disease (CAD), Dementia Medications and Allergies Home Medications Medication Instructions Recorded Confirmed Type Clopidogrel Bisulfate [Clopidogrel] 75 mg PO DAILY 04/06/24 07/08/24 History Montelukast [Singulair] 10 mg PO HS 04/06/24 07/08/24 History amLODIPine [Norvasc] 5 mg PO DAILY 04/06/24 07/08/24 History carvediloL [Coreg] 12.5 mg PO BID 04/06/24 07/08/24 History Atorvastatin Calcium [Lipitor] 40 mg PO HS 07/08/24 07/08/24 History Allergies Allergy/AdvReac Type Severity Reaction Status Date / Time acetaminophen Allergy Anaphylaxis Verified 07/08/24 19:48 [From Tylenol-Codeine #3] aspirin Allergy Rash/Hives Verified 07/08/24 19:48 codeine Allergy Anaphylaxis Verified 07/08/24 19:48 iodine Allergy Rash/Hives Verified 07/08/24 08:28 Penicillins Allergy Anaphylaxis Verified 07/08/24 19:48 Physical Exam Vitals: Vital Signs Temp Pulse Pulse Resp BP Pulse Ox 07/09/24 14:00 79 07/09/24 11:00 65 21 158/67 100 07/09/24 10:00 70 22 140/75 100 07/09/24 09:00 63 17 140/75 100 07/09/24 08:00 97.8 F 65 17 126/61 100 07/09/24 07:00 56 L 17 117/63 95 07/09/24 06:00 60 15 101/44 94 L 07/09/24 05:00 71 16 115/78 93 L 07/09/24 04:00 98.4 F 69 13 145/67 95 07/09/24 03:00 71 25 H 141/66 96 07/09/24 02:00 75 16 139/75 96 07/09/24 01:00 64 13 136/76 95 07/09/24 00:00 98.7 F 70 15 135/111 94 L 07/08/24 23:00 72 18 125/96 94 L 07/08/24 22:00 71 10 L 120/100 95 07/08/24 21:00 71 22 139/109 94 L 07/08/24 20:00 98.7 F 72 17 118/85 92 L 07/08/24 19:00 68 16 118/85 96 07/08/24 18:00 78 19 132/74 96 07/08/24 17:00 70 20 93/73 94 L 07/08/24 16:30 78 17 135/77 95 07/08/24 16:00 98.4 F 75 16 129/55 94 L Intake and Output 07/09/24 07/09/24 07/09/24 06:59 14:59 22:59 Intake Total 20 220 Output Total 400 250 Balance -380 -30 Intake: IV 20 20 Invasive Line 1 20 20 Oral 200 Output: Urine 400 250 Other: Voiding Method External Catheter External Catheter # Voids 1 1 # Bowel Movements 1 Weight 72.7 kg Results 07/09/24 02:47 07/09/24 02:47 Lipids 07/09/24 Range/Units 02:47 Triglycerides 59.70 (0.00-149.00) mg/dL Cholesterol 169.00 (0.00-200.00) mg/dL HDL Cholesterol 78.40 H (40.00-60.00) mg/dL Cholesterol/HDL Ratio 2.16 Ratio CBC 07/09/24 Range/Units 02:47 WBC 6.3 (3.8-10.6) k/uL RBC 4.15 (3.80-5.40) m/uL Hgb 12.7 (11.4-16.0) gm/dL Hct 40.1 (34.0-46.0) % Plt Count 135 L (150-450) k/uL Comprehensive Metabolic Panel 07/09/24 Range/Units 02:47 Sodium 136 L (137-145) mmol/L Potassium 4.1 (3.5-5.1) mmol/L Chloride 103 (98-107) mmol/L Carbon Dioxide 24 (22-30) mmol/L BUN 28 H (7-17) mg/dL Creatinine 1.34 H (0.52-1.04) mg/dL Glucose 119 H (74-99) mg/dL Calcium 9.1 (8.4-10.2) mg/dL Current Medications Generic Name Dose Route Start Last Admin Trade Name Freq PRN Reason Stop Dose Admin Acetaminophen 650 mg 07/08/24 00:21 07/08/24 10:03 Acetaminophen Tab 325 Mg Tab PO 650 mg Q6HR PRN Administration Pain Amlodipine Besylate 5 mg 07/09/24 09:00 07/09/24 09:28 Amlodipine 5 Mg Tab PO 5 mg DAILY KATY Administration Atorvastatin Calcium 40 mg 07/08/24 21:00 07/08/24 20:50 Atorvastatin 40 Mg Tab PO 40 mg HS KATY Administration Carvedilol 12.5 mg 07/08/24 09:15 07/09/24 09:28 Carvedilol 12.5 Mg Tab PO 12.5 mg BID-W/MEALS KATY Administration Famotidine 20 mg 07/09/24 09:00 07/09/24 09:28 Famotidine 20 Mg/2 Ml Vial IV 20 mg DAILY KATY Administration Heparin Sodium (Porcine) 5,000 unit 07/09/24 21:00 Heparin Sodium,Porcine 5,000 Unit/Ml 1 Ml Vial SQ Q12HR KATY Montelukast Sodium 10 mg 07/08/24 21:00 07/08/24 20:50 Montelukast 10 Mg Tab PO 10 mg HS KATY Administration Ticagrelor 90 mg 07/09/24 09:45 07/09/24 11:37 Ticagrelor 90 Mg Tab PO 90 mg BID KATY Administration Intake and Output 07/09/24 07/09/24 07/09/24 06:59 14:59 22:59 Intake Total 20 220 Output Total 400 250 Balance -380 -30 Intake: IV 20 20 Invasive Line 1 20 20 Oral 200 Output: Urine 400 250 Other: Voiding Method External Catheter External Catheter # Voids 1 1 # Bowel Movements 1 Weight 72.7 kg 07/09/24 02:47 07/09/24 02:47
[2024-07-09] MEDS: HEPARIN SODIUM,PORCINE 5,000 UNIT/ML 1 ML VIAL SQ SCH (21:36)
[2024-07-10 07:40] LABS: African American GFR (CKD) 41 (>60 ml/min/1.73 sqM); Anion Gap 7 mmol/L; Blood Urea Nitrogen 30 mg/dL (7-17); Carbon Dioxide 27 mmol/L (22-30); Chloride 102 mmol/L (98-107); Glucose 79 mg/dL (74-99); Non-African American GFR(CKD) 35 (>60 ml/min/1.73 sqM); Potassium 3.8 mmol/L (3.5-5.1); Sodium 136 mmol/L (137-145)
--- NOTE | 2024-07-10 11:42 | P.PN ---
Subjective Progress Note Date: 07/10/24 Patient seen and examined. No significant complaints. Continues to have mild left-sided weakness. No issues since starting Brilinta. When questioned she does have significant throat swelling and hives when taking aspirin Objective - Vital Signs Vital signs: Vital Signs Temp 97.7 F 07/10/24 08:00 Pulse 75 07/10/24 08:00 Resp 16 07/10/24 08:00 BP 130/72 07/10/24 08:00 Pulse Ox 98 07/10/24 08:00 FiO2 21 07/08/24 09:19 Intake & Output 07/09/24 07/10/24 07/10/24 18:59 06:59 18:59 Intake Total 620 720 Output Total 250 100 Balance 370 -100 720 Weight 73 kg Intake: IV 20 Invasive Line 1 20 Oral 600 720 Output: Urine 250 100 Other: Voiding Method External Catheter Toilet Bedside Commode # Voids 1 # Bowel Movements 1 1 - Exam General appearance: The patient is alert, oriented, appears in no acute distress. HET: Head is normocephalic and atraumatic. Pupils are equal and reactive. Neck: Supple. No audible bruit. Heart: Regular. Lungs: Equal expansion, normal respiratory effort. Abdomen: Soft, nontender, nondistended. Extremities: Normal skin color and turgor. Neurological: Speech appears fluent, answers questions appropriately. Appears to have left facial droop mild, left upper extremity and lower extremity weakness with good tone. Right upper extremity and lower extremity good strength and tone. - Labs CBC & Chem 7: 07/09/24 02:47 07/10/24 06:39 Labs: Abnormal Lab Results - Last 24 Hours (Table) 07/10/24 Range/Units 06:39 Sodium 136 L (137-145) mmol/L BUN 30 H (7-17) mg/dL Creatinine 1.47 H (0.52-1.04) mg/dL Assessment and Plan Assessment: 1. Symptomatic right ICA stenosis 2. Acute stroke with left-sided weakness and aphasia status post TNK infusion 3. Right thyroid nodule, benign pathology from 04/22/2024 4. 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 Hypertension 6. Chronic kidney disease 7. Hyperlipidemia Plan: Continue medications including statin and Brilinta as ordered. Planning currently for right sided TCAR on Friday. Did discuss the consequence of aspirin allergy in relation to inability for dual antiplatelet therapy however overall given her findings and imaging as well as clinical course I do believe I transcarotid artery revascularization is the best option at this time. She seemingly understands and is willing to proceed.
--- NOTE | 2024-07-10 13:23 | P.PN ---
Subjective Progress Note Date: 07/10/24 HISTORY OF PRESENTING ILLNESS This is a pleasant 74-year-old with past medical history significant for hyp ertension, hyperlipidemia, stroke, TIA in 2020 for who presented secondary to left sided weakness and garbled speech. Patient had recent echocardiogram at [facility] where she was June 26 through June 28 for TIA type symptoms. Bubble study showed negative with EF 50 to 55%. Her carotid duplex showed no significant stenosis and patient was discharged home. Patient had symptoms and presented to the emergency department and NIH score of 9 and therefore TNK was given and patient had resolution of symptoms. Patient had CT angiography which revealed no large vessel occlusion with moderate to severe plaque of the right carotid bulb and 70% stenosis. She follows in the office with Dr. Ramirez. She states she had a stress test approximately a month ago with no significant findings. She denies any chest pain or pressure. She does have chronic dyspnea on exertion which she attributes to deconditioning. She states she cannot walk up a flight of stairs without stopping however this is mainly related to deconditioning she states. Cardiology is asked to evaluate for p reoperative clearance 07/10 Patient seen and examined on the cardiac stepdown unit. Patient's symptoms are significantly improved from yesterday following TNK treatment. Reviewed results of the echocardiogram with the patient and family members at the bedside. Blood pressure 130/72, heart rate 64, pulse ox 98% on room air. Repeat blood work reveals BUN 30 creatinine 1.47, sodium 136 and potassium 3.8. Echocardiogram reveals 60 to 65% EF, mild to moderate mitral regurgitation, mild tricuspid regurgitation, aortic valve sclerosis. PHYSICAL EXAMINATION Vital signs reviewed. CONSTITUTIONAL: No apparent distress. HEENT: Head is normocephalic. Pupils are equal, round. Sclerae anicteric. Mucous membranes of the mouth are moist. No JVD. No carotid bruit. CHEST EXAMINATION: Lungs are clear to auscultation. No chest wall tenderness is noted on palpation or with deep breathing. HEART EXAMINATION: Regular rate and rhythm. S1, S2 heard. No murmurs, gallops or rub. ABDOMEN: Soft, nontender. Positive bowel sounds. EXTREMITIES: 2+ peripheral pulses, no lower extremity edema and no calf tender ness. NEUROLOGIC EXAMINATION: Patient is awake, alert and oriented x3. ASSESSMENT Acute stroke status post TNK Symptomatic carotid artery stenosis Hypertension Hyperlipidemia Dyspnea Preoperative cardiovascular exam PLAN No further cardiac workup is planned at this time Cardiology will sign off this case and follow on an as-needed basis. Please reconsult for any new concerns. Nurse practitioner note has been reviewed, I agree with documented findings and plan of care. Patient was seen and examined. Objective - Vital Signs Vital signs: Vital Signs Temp 97.7 F 07/10/24 08:00 Pulse 75 07/10/24 08:00 Resp 16 07/10/24 08:00 BP 130/72 07/10/24 08:00 Pulse Ox 98 07/10/24 08:00 FiO2 21 07/08/24 09:19 Intake & Output 07/09/24 07/10/24 07/10/24 18:59 06:59 18:59 Intake Total 620 720 Output Total 250 100 Balance 370 -100 720 Weight 73 kg Intake: IV 20 Invasive Line 1 20 Oral 600 720 Output: Urine 250 100 Other: Voiding Method External Catheter Toilet Bedside Commode # Voids 1 # Bowel Movements 1 1 - Labs CBC & Chem 7: 07/09/24 02:47 07/10/24 06:39 Labs: Abnormal Lab Results - Last 24 Hours (Table) 07/10/24 Range/Units 06:39 Sodium 136 L (137-145) mmol/L BUN 30 H (7-17) mg/dL Creatinine 1.47 H (0.52-1.04) mg/dL
--- NOTE | 2024-07-10 15:05 | P.PN ---
Subjective Progress Note Date: 07/10/24 Patient is a 74-year-old female with past medical history significant for hypertension, hyperlipidemia, CVA/TIA, chronic kidney disease. Presented to the emergency department via EMS late last night at 2245 with CVA-like symptoms. NIH reported at 9. Code stroke initiated. Brain CT did not show any evidence of acute intracranial hemorrhage or midline shift. Mild to moderate diffuse age- related cerebral atrophy and moderate chronic small vessel ischemic changes along with old right frontal and parietal lobe infarcts redemonstrated. CT angio of head and neck did not show any large vessel occlusions or aneurysm at the level of the [place]. Moderate to severe plaque at the right carotid bulb and proximal internal carotid artery causing significant stenosis with lumen diameter narrowing measured around 70%. On-call neurointerventional and ER physician felt patient would benefit from TNK infusion. ICU consult placed for neuromonitoring status post TNK. I am evaluating this patient in the trauma bay 2. Patient is alert and oriented x 3. Continues to have some mild to moderate dysarthria. Left-sided hemiparesis has resolved. Denies headaches, vision changes, nausea or vomiting, sensory loss. No limb ataxia outside of weakness. Denies history of seizures or migraines. Remaining neurological exam is nonfocal. Family is at bedside, and supplements HPI. At 10 pm, patient dev eloped sudden left-sided weakness and "garbled" speech. She had a fall from the couch and landed on her face. There is some dried blood in the perioral region. No active bleeding. According to the , patient was just recently admitted at [facility] for a "mini stroke". No thrombolytics were given at this time. She was discharged on June 28. Also, she recently had a follow-up visit on Friday with her neurologist, Dr. Nikkie Gracia. Patient does have history of previous CVA. Not on any anticoagulants, but does take Plavix. Did have a recent brain MRI on 06/05/2024 did not show any evidence of intracranial mass or subacute/acute infarct. There were regions of e ncephalomalacia with gliosis from prior ischemic injury involving the right frontal and parietal lobes. CBC: WBC count 4.7, hemoglobin 13.1, hematocrit 40.8, platelets 135. PT 10.8, INR 1, APTT 22.7. CMP: Sodium 134, potassium 4.4, chloride 99, serum bicarb 25, BUN 31, creatinine 1.34, glucose 108. LFTs not elevated. Troponin less than 0.012. EKG: Sinus rhythm with first-degree AV block and frequent PVCs. Current vital signs: Afebrile, heart rate 77 bpm, blood pressure 127/91 mmHg, nontachypneic, SpO2 reading 94% on room air. Patient was seen today on 07/09/2024, remains in the ICU, feels drastically better today compared to yesterday. Patient is being started on Brilinta 90 mg twice daily, mostly because she failed Plavix. Patient is allergic to aspirin she will be placed on Lipitor and she has an MRI of the brain pending. For her carotid stenosis, vascular was consulted and planning intervention next Friday. In the meantime the patient is continuing to do well. WBC count is 6.3 hemoglobin 12.7 electrolytes are normal BUN is 28 creatinine 1.34 The patient is seen today July 10, 2024 in follow-up on the selective care unit. She was transferred out of the intensive care unit yesterday. She is currently sitting up in a chair at the bedside. Awake and alert in no acute distress. Maintaining good O2 saturations in the 90s on room air. 27. BUN 30. Creatinine 1.47. Glucose 79. She is continued on Brilinta and statins. Heparin for DVT prophylaxis. Objective - Vital Signs Vital signs: Vital Signs Temp 98.0 F 07/10/24 12:00 Pulse 69 07/10/24 12:00 Resp 16 07/10/24 12:00 BP 152/78 07/10/24 12:00 Pulse Ox 99 07/10/24 12:00 FiO2 21 07/08/24 09:19 Intake & Output 07/09/24 07/10/24 07/10/24 18:59 06:59 18:59 Intake Total 620 840 Output Total 250 100 Balance 370 -100 840 Weight 73 kg Intake: IV 20 Invasive Line 1 20 Oral 600 840 Output: Urine 250 100 Other: Voiding Method External Catheter Toilet Bedside Commode # Voids 1 # Bowel Movements 1 1 - Exam GENERAL EXAM: Alert, pleasant 74-year-old female, up in a chair, on room air, comfortable in no apparent distress. HEAD: Normocephalic. EYES: Normal reaction of pupils, equal size. NOSE: Clear with pink turbinates. THROAT: No erythema or exudates. NECK: No masses, no JVD. CHEST: No chest wall deformity. LUNGS: Equal air entry with no crackles, wheeze, rhonchi or dullness. CVS: S1 and S2 normal with no audible murmur, regular rhythm. ABDOMEN: No hepatosplenomegaly, normal bowel sounds, no guarding or rigidity. SPINE: No scoliosis or deformity SKIN: No rashes CENTRAL NERVOUS SYSTEM: Continues with some left-sided weakness, tone is normal in all 4 extremities. EXTREMITIES: There is no peripheral edema. No clubbing, no cyanosis. Peripheral pulses are intact. - Labs CBC & Chem 7: 07/09/24 02:47 07/10/24 06:39 Labs: Abnormal Lab Results - Last 24 Hours (Table) 07/10/24 Range/Units 06:39 Sodium 136 L (137-145) mmol/L BUN 30 H (7-17) mg/dL Creatinine 1.47 H (0.52-1.04) mg/dL Assessment and Plan Assessment: Symptomatic right ICA stenosis Acute stroke with left-sided weakness and aphasia, status post TNK infusion History of previous CVA/TIA with old right frontal/parietal infarct Hypertension Chronic kidney disease Hyperlipidemia History of right thyroid nodule, benign Plan: The patient was seen and evaluated Labs and medications reviewed Currently stable and on room air Plan is for right sided TCAR on 07/13/2024 Continue Brilinta and statins Patient has not aspirin allergy We will continue to follow I have personally seen and examined the patient, performed the documentation and the assessment and plan as written. Number of minutes spent on the visit: 10 Dictation was produced using [employer] software. Please excuse any grammatical, word or spelling errors.
--- NOTE | 2024-07-10 16:32 | P.PN ---
Subjective Progress Note Date: 07/10/24 Patient was initially seen by Dr. Nliay Rodriguez. Please refer to his note for details. Patient is a 74-year-old female with stroke, status post IV TNK (had left-sided weakness, numbness that resolved). Patient states she is doing better as compared to how she came with. Patient is sitting comfortably in her recliner. Some of the work-up during this hospital visit: Lipid panel is triglyceride 59, cholesterol is 169, LDL 78 and HDL 78 Hemoglobin A1c is 5.6. While in the ED she had CT head which was negative for acute process. A code stroke was activiated and ED physician spoke with Dr. Díaz and agreed to pursue with TNK. CT head: No acute intracranial hemorrhage or midline shift. Old right frontal/parietal lob infarct. I personally reviewed CT and agree with report. CTA head and neck: No large vessel occlusion or aneurysm at the level of [place]. Moderate to severe plaque right carotid bulb and proximal internal carotid artery causing significant stenosis with lumen diameter narrowing measured around 70%. Repeat CT head 24 hours post TNK: No acute intracranial hemorrhage or midline shift. There is mild diffuse age-related cerebral atrophy and mild to moderate chronic small vessel ischemic change along with old right-sided infarcts are all redemonstrated. No significant change from 1 day earlier. I personally reviewed the CT and agree there is no acute or subacute stroke. The echo is reported as left ventricular ejection fraction of 60 to 65%. Normal right ventricular size and function. Mild to moderate mitral regurgitation. Mild tricuspid regurgitation. Aortic valve sclerosis. Objective - Vital Signs Vital signs: Vital Signs Temp 98.0 F 07/10/24 12:00 Pulse 69 07/10/24 12:00 Resp 16 07/10/24 12:00 BP 152/78 07/10/24 12:00 Pulse Ox 99 07/10/24 12:00 FiO2 21 07/08/24 09:19 Intake & Output 07/09/24 07/10/24 07/10/24 18:59 06:59 18:59 Intake Total 620 840 Output Total 250 100 Balance 370 -100 840 Weight 73 kg Intake: IV 20 Invasive Line 1 20 Oral 600 840 Output: Urine 250 100 Other: Voiding Method External Catheter Toilet Bedside Commode # Voids 1 # Bowel Movements 1 1 - Exam Patient is an elderly female, laying in the bed, in no distress. Her speech and language functions are normal. Cranial nerves are normal. Visual harris are full. Extraocular muscles are intact. Face is symmetric. Tongue protrudes in midline. On muscle strength testing, there is no pronator drift and the strength is normal. Sensation to touch is equal with no neglect. No ataxia. - Labs CBC & Chem 7: 07/09/24 02:47 07/10/24 06:39 Labs: Abnormal Lab Results - Last 24 Hours (Table) 07/10/24 Range/Units 06:39 Sodium 136 L (137-145) mmol/L BUN 30 H (7-17) mg/dL Creatinine 1.47 H (0.52-1.04) mg/dL Assessment and Plan Assessment: This is a 74-year-old woman who presented emergency department because of left facial droop left-sided weakness and numbness. She received TNKase yesterday. Acute ischemic stroke with symptoms of left-sided weakness numbness and speech difficulty. Post IV TNK on 07/07/2024----Today her symptoms resolved and repeat CT head is negative for acute process. Etiology of stroke probable due to symptomatic right ICA stenosis Right ICA stenosis of about 70% on the CT angiography. Patient had 2 carotid duplex at the outside facility at [facility] which was negative for any significant stenosis History of stroke over the right frontal more than parietal region History of TIA Hypertension Hyperlipidemia Plan: Recommend starting on Brilinta 90 mg 1 tablet twice daily. Patient failed Plavix. She allergic to aspirin Continue Lipitor 40 mg nightly that sufficient for secondary stroke prophylaxis MRI of the brain revealed acute/subacute CVA involving the right basal ganglia and within the cortex within the right frontal lobe. Petechial hemorrhage within the right basal ganglia demonstrated on susceptibility weighted imaging. Nonspecific white matter changes, likely secondary to small vessel ischemic disease. From carotid stenosis vascular surgery is consulted. They are planning of intervention this Friday as inpatient per vascular attending. Continue neurochecks Cardiac monitoring PT and OT and [employer] are consulted Recommend blood pressure control per IV TNK protocol For DVT for prophylaxis on The rest of the medical management to primary and other specialist.
--- NOTE | 2024-07-11 01:07 | P.PN ---
Subjective Progress Note Date: 07/10/24 This is a 74-year-old female with medical history significant for stroke, hypertension, hyperlipidemia. Patient had a prior TIA in 2023. Patient presents to the ER at 2245 yesterday evening with last known well of 10 PM. Patient arrived by EMS for suspected stroke per family they report patient had f solo off the couch; and noted to have weakness of the left arm and leg as well as garbled speech. Patient was at [facility] last week for TIA and discharged on the . She was admitted from June 26 to June 28, for numbness and paresthesias of the left hand which had resolved prior to coming to the ER. Patient's brain CT there did show a hypodensity in the right parietal region which may be age-indeterminate. Echocardiogram completed at [facility] reveals an EF of 50 to 55% with no intra-arterial shunt on bubble study. Her preliminary carotid duplex shows no evidence of hemodynamically significant stenosis. Patient was discharged on Plavix and Lipitor and was re commended for outpatient MRI and MRA of the brain. Noted that she did have a brain MRI completed on June 05, 2024 which reveals no evidence of intracranial mass/acute/subacute infarct. There is regions of encephalomalacia with gliosis from prior ischemic injury involving the right frontal and parietal lobes there is nonspecific white matter changes likely related to small vessel ischemic disease. She followed up with her primary Neurologist Dr. Romulo Gracia last Friday. She reports now for stroke like symptoms and found to have NIH score of 9 and a code stroke was initiated. Neurosurgery felt patient would benefit from TNK. Patient received TNK infusion and was admitted to the ICU for monitoring. Brain CT reveals no acute intracranial hemorrhage or midline shift there is mild to moderate diffuse age-related cerebral atrophy and moderate chronic small vessel ischemic change along with old right frontal parietal lobe infarcts. Chest X-ray reveals cardiomegaly without acute pulmonary process. CT angiography revealed no large vessel occlusion or aneurysm at the level of the [place] there is moderate severe plaque at the right carotid bulb and proximal internal carotid artery causing significant stenosis with lumen diameter narrowing measured around 70%. CBC was unremarkable with the exception of a platelet count of 135, sodium of 134 BUN of 31 creatinine of 1.34 glucose of 108. Troponin level is negative x 3. Patient was admitted to the hospital with a consult placed to neurology. Patient was admitted to the intensive care unit and is evaluated today resting in bed. Continues to have some mild left UE weakness and left facial droop. 07/09/2024 Patient is evaluated in follow-up in the intensive care unit. Her symptoms of left weakness as well as her left facial droop are significantly improved. Vascular surgery has evaluate this patient and is planning for a right carotid endarterectomy next Friday. Patient has been started on Brilinta 90 mg twice daily patient did receive her first dose today. Patient will be going for a brain MRI today. Cardiogram reveals an EF of 60 to 65% with mild to moderate MR and mild tricuspid regurgitation. Patient had repeat brain CT post tenecteplase without signs of acute hemorrhage midline shift and there is old right-sided infarcts redemonstrated. 07/10/2024 Patient is seen in follow-up today with no reported issues overnight. Patient with multiple consultations following including vascular surgery, neurology and cardiology consulted. Ongoing for stroke workup and also noted to have significant right ICA stenosis, scheduled to undergo right carotid endarterectomy on 07/13/2024. Awaiting cardiology clearance. Patient is afebrile with no reported chest pain or shortness of breath. Patient has been tolerating diet with no reported nausea or vomiting. Kidney function is mildly elevated with a creatinine of 1.47 and will follow-up on repeat labs. Encouraged increase activity as tolerated including sitting up in the chair more frequently. REVIEW OF SYSTEMS: CONSTITUTIONAL: No fever, no malaise, no fatigue. HEENT: No recent visual problems or hearing problems. Denied any sore throat. CARDIOVASCULAR: No chest pain, orthopnea, PND, no palpitations, no syncope. PULMONARY: No shortness of breath, no cough, no hemoptysis. GASTROINTESTINAL: No diarrhea, no nausea, no vomiting, no abdominal pain. NEUROLOGICAL: No headaches, no numbness. Reports left weakness and garbled spe ech. PHYSICAL EXAMINATION: GENERAL: The patient is alert and oriented x3, not in any acute distress. Well developed, well nourished. Appears older than stated age, obese HEENT: Pupils are round and equally reacting to light. EOMI. No scleral icterus. No conjunctival pallor. Normocephalic, atraumatic. No pharyngeal erythema. No thyromegaly. CARDIOVASCULAR: S1 and S2 muffled PULMONARY: Chest is clear to auscultation, no wheezing or crackles. ABDOMEN: Soft, obese, nontender, nondistended, normoactive bowel sounds. No palpable organomegaly. MUSCULOSKELETAL: No joint swelling or deformity. EXTREMITIES: No cyanosis, clubbing, or pedal edema. NEUROLOGICAL: left side weakness and left facial droop improved. SKIN: No rashes. Assessment: Acute ischemic stroke as noted on imaging, initially presenting with left-sided paresis, dysarthria and left sided facial droop which is resolved and is post TNK infusion Carotid artery stenosis with 70% diameter narrowing of the right carotid bulb/pr oximal internal carotid artery, scheduled to undergo right carotid endarterectomy on 07/13/2024 with vascular surgery Hypertension History hyperlipidemia History of TIA 2023 Chronic kidney disease Obesity with a BMI 32.5 GI prophylaxis DVT prophylaxis Full Code Plan: Neurology following underwent further neurological workup noted to have significant right ICA stenosis and vascular surgery consulted with plans on doing right carotid endarterectomy on 07/13/2024. Per vascular surgery, patient is to continue on Brilinta and will continue twice daily Cardiology consulted for cardiology clearance for surgical intervention PT/OT/Speech therapy consultation Patient currently maintained on 3 S. and will continue telemetry monitoring Repeat labs in the a.m., replace electrolytes per protocol The impression and plan of care has been dictated by Estela Frye, Nurse Practitioner as directed. Dr. Steve MD I have performed a history and physical examination and medical decision making of this patient, discussed the same with the dictator, and agree with the dic tators assessment and plan as written, documented as a scribe. Based on total visit time, I have performed more than 50% of this visit. Objective - Vital Signs Vital signs: Vital Signs Temp 97.7 F 07/10/24 08:00 Pulse 64 07/10/24 08:00 Resp 16 07/10/24 08:00 BP 130/72 07/10/24 08:00 Pulse Ox 98 07/10/24 08:00 FiO2 21 07/08/24 09:19 Intake & Output 07/09/24 07/10/24 07/10/24 18:59 06:59 18:59 Intake Total 620 240 Output Total 250 100 Balance 370 -100 240 Weight 73 kg Intake: IV 20 Invasive Line 1 20 Oral 600 240 Output: Urine 250 100 Other: Voiding Method External Catheter # Voids 1 # Bowel Movements 1 - Labs CBC & Chem 7: 07/09/24 02:47 07/10/24 06:39 Labs: Abnormal Lab Results - Last 24 Hours (Table) 07/10/24 Range/Units 06:39 Sodium 136 L (137-145) mmol/L BUN 30 H (7-17) mg/dL Creatinine 1.47 H (0.52-1.04) mg/dL
[2024-07-11 08:23] LABS: Basophils % (A) 0 %; Eosinophils # (A) 0.1 k/uL (0-0.7); Eosinophils % (A) 4 %; HCT 41.5 % (34.0-46.0); HGB 13.1 gm/dL (11.4-16.0); Lymphocytes # (A) 1.4 k/uL (1.0-4.8); Lymphocytes % (A) 36 %; MCH 30.6 pg (25.0-35.0); MCHC 31.4 g/dL (31.0-37.0); MCV 97.5 fL (80.0-100.0); Mean Platelet Volume 7.4; Monocytes # (A) 0.5 k/uL (0-1.0); Monocytes % (A) 12 %; Neutrophils # (A) 1.9 k/uL (1.3-7.7); Neutrophils % (A) 47 %; Platelet Count 145 k/uL (150-450); RBC 4.26 m/uL (3.80-5.40); RDW 13.5 % (11.5-15.5)
[2024-07-11 08:50] LABS: ALT 17 U/L (4-34); AST 27 U/L (14-36); African American GFR (CKD) 39 (>60 ml/min/1.73 sqM); Albumin 3.7 g/dL (3.5-5.0); Alkaline Phosphatase 84 U/L (38-126); Anion Gap 10 mmol/L; Blood Urea Nitrogen 29 mg/dL (7-17); Calcium 8.9 mg/dL (8.4-10.2); Carbon Dioxide 24 mmol/L (22-30); Chloride 103 mmol/L (98-107); Glucose 96 mg/dL (74-99); Magnesium 2.3 mg/dL (1.6-2.3); Non-African American GFR(CKD) 34 (>60 ml/min/1.73 sqM); Potassium 4.1 mmol/L (3.5-5.1); Sodium 137 mmol/L (137-145); Total Bilirubin 1.5 mg/dL (0.2-1.3); Total Protein 6.9 g/dL (6.3-8.2)
[2024-07-11] MEDS: FAMOTIDINE 20 MG TAB PO SCH (09:15)
[2024-07-11] MEDS ORDERED: Magnesium Replacement Protocol 1 EACH MISC MISCELLANE PRN (09:36)
[2024-07-11] MEDS ORDERED: MAGNESIUM SULFATE-D5W PMX 1 GM in DEXTROSE/WATER 1 100ML.BAG IVPB SCH (09:45)
--- NOTE | 2024-07-11 12:00 | P.PN ---
Subjective Progress Note Date: 07/11/24 Patient seen and examined. No significant complaints. Continues to have mild left-sided weakness but over all improvement per patient Objective - Vital Signs Vital signs: Vital Signs Temp 98.7 F 07/11/24 11:39 Pulse 38 L 07/11/24 11:39 Resp 18 07/11/24 11:39 BP 133/62 07/11/24 11:39 Pulse Ox 99 07/11/24 11:39 FiO2 21 07/08/24 09:19 Intake & Output 07/10/24 07/11/24 07/11/24 18:59 06:59 18:59 Intake Total 840 240 Balance 840 240 Weight 72.3 kg Intake: Oral 840 240 Other: Voiding Method Toilet Toilet Bedside Commode Bedside Commode Diaper Incontinent # Voids 4 4 3 # Bowel Movements 1 3 - Exam General appearance: The patient is alert, oriented, appears in no acute distress. HET: Head is normocephalic and atraumatic. Pupils are equal and reactive. Neck: Supple. No audible bruit. Heart: Regular. Lungs: Equal expansion, normal respiratory effort. Abdomen: Soft, nontender, nondistended. Extremities: Normal skin color and turgor. Neurological: Speech appears fluent, answers questions appropriately. - Labs CBC & Chem 7: 07/11/24 07:43 07/11/24 07:43 Labs: Abnormal Lab Results - Last 24 Hours (Table) 07/11/24 07/11/24 Range/Units 07:43 07:43 Plt Count 145 L (150-450) k/uL BUN 29 H (7-17) mg/dL Creatinine 1.53 H (0.52-1.04) mg/dL Total Bilirubin 1.5 H (0.2-1.3) mg/dL Assessment and Plan Assessment: 1. Symptomatic right ICA stenosis 2. Acute stroke with left-sided weakness and aphasia status post TNK infusion 3. Right thyroid nodule, benign pathology from 04/22/2024 4. 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 Hypertension 6. Chronic kidney disease 7. Hyperlipidemia Plan: Continue medications including statin and Brilinta as ordered. Planning currently for right sided TCAR on Friday. Discussed with patient and family requested. All questions answered at this time.
[2024-07-11] MEDS: BISMUTH SUBSALICYLATE 4,192 MG/240 ML BOTTLE PO PRN (12:14)
--- NOTE | 2024-07-12 03:57 | P.PN ---
Subjective Progress Note Date: 07/11/24 This is a 74-year-old female with medical history significant for stroke, hypertension, hyperlipidemia. Patient had a prior TIA in 2023. Patient presents to the ER at 2245 yesterday evening with last known well of 10 PM. Patient arrived by EMS for suspected stroke per family they report patient had f solo off the couch; and noted to have weakness of the left arm and leg as well as garbled speech. Patient was at [facility] last week for TIA and discharged on the . She was admitted from June 26 to June 28, for numbness and paresthesias of the left hand which had resolved prior to coming to the ER. Patient's brain CT there did show a hypodensity in the right parietal region which may be age-indeterminate. Echocardiogram completed at [facility] reveals an EF of 50 to 55% with no intra-arterial shunt on bubble study. Her preliminary carotid duplex shows no evidence of hemodynamically significant stenosis. Patient was discharged on Plavix and Lipitor and was re commended for outpatient MRI and MRA of the brain. Noted that she did have a brain MRI completed on June 05, 2024 which reveals no evidence of intracranial mass/acute/subacute infarct. There is regions of encephalomalacia with gliosis from prior ischemic injury involving the right frontal and parietal lobes there is nonspecific white matter changes likely related to small vessel ischemic disease. She followed up with her primary Neurologist Dr. Romulo Gracia last Friday. She reports now for stroke like symptoms and found to have NIH score of 9 and a code stroke was initiated. Neurosurgery felt patient would benefit from TNK. Patient received TNK infusion and was admitted to the ICU for monitoring. Brain CT reveals no acute intracranial hemorrhage or midline shift there is mild to moderate diffuse age-related cerebral atrophy and moderate chronic small vessel ischemic change along with old right frontal parietal lobe infarcts. Chest X-ray reveals cardiomegaly without acute pulmonary process. CT angiography revealed no large vessel occlusion or aneurysm at the level of the [place] there is moderate severe plaque at the right carotid bulb and proximal internal carotid artery causing significant stenosis with lumen diameter narrowing measured around 70%. CBC was unremarkable with the exception of a platelet count of 135, sodium of 134 BUN of 31 creatinine of 1.34 glucose of 108. Troponin level is negative x 3. Patient was admitted to the hospital with a consult placed to neurology. Patient was admitted to the intensive care unit and is evaluated today resting in bed. Continues to have some mild left UE weakness and left facial droop. 07/09/2024 Patient is evaluated in follow-up in the intensive care unit. Her symptoms of left weakness as well as her left facial droop are significantly improved. Vascular surgery has evaluate this patient and is planning for a right carotid endarterectomy next Friday. Patient has been started on Brilinta 90 mg twice daily patient did receive her first dose today. Patient will be going for a brain MRI today. Cardiogram reveals an EF of 60 to 65% with mild to moderate MR and mild tricuspid regurgitation. Patient had repeat brain CT post tenecteplase without signs of acute hemorrhage midline shift and there is old right-sided infarcts redemonstrated. 07/10/2024 Patient is seen in follow-up today with no reported issues overnight. Patient with multiple consultations following including vascular surgery, neurology and cardiology consulted. Ongoing for stroke workup and also noted to have significant right ICA stenosis, scheduled to undergo right carotid endarterectomy on 07/13/2024. Awaiting cardiology clearance. Patient is afebrile with no reported chest pain or shortness of breath. Patient has been tolerating diet with no reported nausea or vomiting. Kidney function is mildly elevated with a creatinine of 1.47 and will follow-up on repeat labs. Encouraged increase activity as tolerated including sitting up in the chair more frequently. 07/11/2024 Patient is seen in follow-up today being followed by vascular surgery along with cardiology with plans of right carotid endarterectomy on Friday with vascular surgery. Patient is reporting some loose stools and will add Pepto-Bismol. Patient reports this frequently happens at home and is relieved with Pepto- Bismol. Patient has not been on antibiotics and highly unlikely for C. difficile although if persistent will evaluate. Patient denies chest pain or shortness of breath. Patient reports has been tolerating diet. REVIEW OF SYSTEMS: CONSTITUTIONAL: No fever, no malaise, no fatigue. HEENT: No recent visual problems or hearing problems. Denied any sore throat. CARDIOVASCULAR: No chest pain, orthopnea, PND, no palpitations, no syncope. PULMONARY: No shortness of breath, no cough, no hemoptysis. GASTROINTESTINAL: Reports of multiple episodes of diarrhea, no nausea, no vomiting, no abdominal pain. NEUROLOGICAL: No headaches, no numbness. Reports left weakness and speech has improved. Weakness improving as well PHYSICAL EXAMINATION: GENERAL: The patient is alert and oriented x3, not in any acute distress. Well developed, well nourished. Appears older than stated age, obese HEENT: Pupils are round and equally reacting to light. EOMI. No scleral icterus. No conjunctival pallor. Normocephalic, atraumatic. No pharyngeal erythema. No thyromegaly. CARDIOVASCULAR: S1 and S2 muffled PULMONARY: Chest is clear to auscultation, no wheezing or crackles. ABDOMEN: Soft, obese, nontender, nondistended, normoactive bowel sounds. No palpable organomegaly. MUSCULOSKELETAL: No joint swelling or deformity. EXTREMITIES: No cyanosis, clubbing, or pedal edema. NEUROLOGICAL: left side weakness although improving SKIN: No rashes. Assessment: Acute ischemic stroke as noted on imaging, initially presenting with left-sided paresis, dysarthria and left sided facial droop which is resolved and is post TNK infusion Carotid artery stenosis with 70% diameter narrowing of the right carotid bulb/proximal internal carotid artery, scheduled to undergo right carotid endarterectomy on 07/13/2024 with vascular surgery Hypertension History hyperlipidemia History of TIA 2023 Chronic kidney disease Obesity with a BMI 32.5 GI prophylaxis DVT prophylaxis Full Code Plan: Neurology following underwent further neurological workup noted to have significant right ICA stenosis and vascular surgery consulted with plans on doing right carotid endarterectomy on 07/13/2024. Per vascular surgery, patient is to continue on Brilinta and will continue twice daily Cardiology consulted for cardiology clearance for surgical intervention Patient reports to having some diarrhea and this happens frequently at home and uses Pepto-Bismol with relief. Will add Pepto-Bismol and if persistent may obtain C. difficile sample although patient has not been on antibiotics most recently. PT/OT/Speech therapy consultation Patient currently maintained on 3 S. and will continue telemetry monitoring Repeat labs in the a.m., replace electrolytes per protocol The impression and plan of care has been dictated by Estela Frye, Nurse Practitioner as directed. Dr. Steve MD I have performed a history and physical examination and medical decision making of this patient, discussed the same with the dictator, and agree with the dictators assessment and plan as written, documented as a scribe. Based on total visit time, I have performed more than 50% of this visit. Objective - Vital Signs Vital signs: Vital Signs Temp 98.2 F 07/11/24 08:00 Pulse 61 07/11/24 08:00 Resp 16 07/11/24 08:00 BP 126/77 07/11/24 08:00 Pulse Ox 98 07/11/24 08:00 FiO2 21 07/08/24 09:19 Intake & Output 07/10/24 07/11/24 07/11/24 18:59 06:59 18:59 Intake Total 840 240 Balance 840 240 Weight 72.3 kg Intake: Oral 840 240 Other: Voiding Method Toilet Bedside Commode # Voids 4 4 # Bowel Movements 1 - Labs CBC & Chem 7: 07/11/24 07:43 07/11/24 07:43 Labs: Abnormal Lab Results - Last 24 Hours (Table) 07/11/24 07/11/24 Range/Units 07:43 07:43 Plt Count 145 L (150-450) k/uL BUN 29 H (7-17) mg/dL Creatinine 1.53 H (0.52-1.04) mg/dL Total Bilirubin 1.5 H (0.2-1.3) mg/dL
[2024-07-12 07:44] LABS: African American GFR (CKD) 41 (>60 ml/min/1.73 sqM); Anion Gap 7 mmol/L; Blood Urea Nitrogen 24 mg/dL (7-17); Carbon Dioxide 27 mmol/L (22-30); Chloride 102 mmol/L (98-107); Glucose 92 mg/dL (74-99); Magnesium 2.3 mg/dL (1.6-2.3); Non-African American GFR(CKD) 35 (>60 ml/min/1.73 sqM); Potassium 3.9 mmol/L (3.5-5.1); Sodium 136 mmol/L (137-145)
--- NOTE | 2024-07-12 11:40 | P.PN ---
Subjective Progress Note Date: 07/12/24 Principal diagnosis: ICA stenosis, acute stroke Patient was seen and examined today as a follow-up. She denies any new focal deficits. Still has some weakness of the left upper and lower extremity. She is scheduled for right transcarotid artery revascularization tomorrow. No acute changes through the night. Objective - Vital Signs Vital signs: Vital Signs Temp 97.9 F 07/12/24 08:00 Pulse 54 L 07/12/24 08:00 Resp 20 07/12/24 08:00 BP 119/69 07/12/24 08:00 Pulse Ox 96 07/12/24 08:00 FiO2 21 07/08/24 09:19 Intake & Output 07/11/24 07/12/24 07/12/24 18:59 06:59 18:59 Intake Total 480 Balance 480 Weight 73.3 kg Intake: Oral 480 Other: Voiding Method Toilet Bedside Commode Diaper Incontinent # Voids 1 1 # Bowel Movements 3 - Exam General appearance: The patient is alert, oriented, appears in no acute distress. HET: Head is normocephalic and atraumatic. Pupils are equal and reactive. Neck: Supple. No audible bruit. Heart: Regular. Lungs: Equal expansion, normal respiratory effort. Abdomen: Soft, nontender, nondistended. Extremities: Normal skin color and turgor. Neurological: Speech appears fluent, answers questions appropriately. Some mild left upper and lower extremity weakness. - Labs CBC & Chem 7: 07/11/24 07:43 07/12/24 07:00 Labs: Abnormal Lab Results - Last 24 Hours (Table) 07/12/24 Range/Units 07:00 Sodium 136 L (137-145) mmol/L BUN 24 H (7-17) mg/dL Creatinine 1.48 H (0.52-1.04) mg/dL Assessment and Plan Assessment: 1. Symptomatic right ICA stenosis 2. Acute stroke with left-sided weakness and aphasia status post TNK infusion 3. Right thyroid nodule, benign pathology from 04/22/2024 4. 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 Hypertension 6. Chronic kidney disease 7. Hyperlipidemia 8. Pancreatic lesions, patient scheduled further evaluation with [facility] Plan: 1. Continue statin, continue Brilinta as ordered 2. Continue with OT, PT and speech therapy 3. Acute/subacute CVA involving right basal ganglia and within the cortex right frontal lobe. 4. Echocardiogram pending 5. Continue with recommendations from neurology 6. Cardiac cleared for right TCAR per cardiology 7. N.p.o. after midnight except for medications 8. Patient is scheduled for right transcarotid artery revascularization with stent tomorrow Thank you for this consultation, we will continue to follow. The impression and plan of care has been dictated as directed. Dr. Navarro I performed a history and examination of this patient, discussed the same with the dictator. I agree with the dictator's note ,documented as a scribe. Any additional findings or plans will be noted.
--- NOTE | 2024-07-12 21:54 | P.PN ---
Subjective Progress Note Date: 07/12/24 This is a 74-year-old female with medical history significant for stroke, hypertension, hyperlipidemia. Patient had a prior TIA in 2023. Patient presents to the ER at 2245 yesterday evening with last known well of 10 PM. Patient arrived by EMS for suspected stroke per family they report patient had fallen off the couch; and noted to have weakness of the left arm and leg as well as garbled speech. Patient was at [facility] last week for TIA and discharged on the . She was admitted from June 26 to June 28, for numbness and paresthesias of the left hand which had resolved prior to coming to the ER. Patient's brain CT there did show a hypodensity in the right parietal region which may be age-indeterminate. Echocardiogram completed at [facility] reveals an EF of 50 to 55% with no intra-arterial shunt on bubble study. Her preliminary carotid duplex shows no evidence of hemodynamically significant stenosis. Patient was discharged on Plavix and Lipitor and was recommended for outpatient MRI and MRA of the brain. Noted that she did have a brain MRI completed on June 05, 2024 which reveals no evidence of intracranial mass/acute/subacute infarct. There is regions of encephalomalacia with gliosis from prior ischemic injury involving the right frontal and parietal lobes there is nonspecific white matter changes likely related to small vessel ischemic disease. She followed up with her primary Neurologist Dr. Romulo Gracia last Friday. She reports now for stroke like symptoms and found to have NIH score of 9 and a code stroke was initiated. Neurosurgery felt patient would benefit from TNK. Patient received TNK infusion and was admitted to the ICU for monitoring. Brain CT reveals no acute intracranial hemorrhage or midline shift there is mild to moderate diffuse age-related cerebral atrophy and moderate chronic small vessel ischemic change along with old right frontal parietal lobe infarcts. Chest X-ray reveals cardiomegaly without acute pulmonary process. CT angiography revealed no large vessel occlusion or aneurysm at the level of the [place] there is moderate severe plaque at the right carotid bulb and proximal internal carotid artery causing significant stenosis with lumen diameter narrowing measured around 70%. CBC was unremarkable with the exception of a platelet count of 135, sodium of 134 BUN of 31 creatinine of 1.34 glucose of 108. Troponin level is negative x 3. Patient was admitted to the hospital with a consult placed to neurology. Patient was admitted to the intensive care unit and is evaluated today resting in bed. Continues to have some mild left UE weakness and left facial droop. 07/09/2024 Patient is evaluated in follow-up in the intensive care unit. Her symptoms of left weakness as well as her left facial droop are significantly improved. Vascular surgery has evaluate this patient and is planning for a right carotid endarterectomy next Friday. Patient has been started on Brilinta 90 mg twice daily patient did receive her first dose today. Patient will be going for a brain MRI today. Cardiogram reveals an EF of 60 to 65% with mild to moderate MR and mild tricuspid regurgitation. Patient had repeat brain CT post tenecteplase without signs of acute hemorrhage midline shift and there is old right-sided infarcts redemonstrated. 07/10/2024 Patient is seen in follow-up today with no reported issues overnight. Patient with multiple consultations following including vascular surgery, neurology and cardiology consulted. Ongoing for stroke workup and also noted to have significant right ICA stenosis, scheduled to undergo right carotid endarterectomy on 07/13/2024. Awaiting cardiology clearance. Patient is afebrile with no reported chest pain or shortness of breath. Patient has been tolerating diet with no reported nausea or vomiting. Kidney function is mildly elevated with a creatinine of 1.47 and will follow-up on repeat labs. Encouraged increase activity as tolerated including sitting up in the chair more frequently. 07/11/2024 Patient is seen in follow-up today being followed by vascular surgery along with cardiology with plans of right carotid endarterectomy on Friday with vascular surgery. Patient is reporting some loose stools and will add Pepto-Bismol. Patient reports this frequently happens at home and is relieved with Pepto- Bismol. Patient has not been on antibiotics and highly unlikely for C. difficile although if persistent will evaluate. Patient denies chest pain or shortness of breath. Patient reports has been tolerating diet. 07/12/2024 Patient evaluated today in follow up on the medical floor. Patient continues to report no new neurological symptoms. Facial droop and left sided hemiparesis are resolved. Patient scheduled to undergo TCAR tomorrow 07/13/2024. No further reports of loose stools today. Sodium 136, BUN 24, creatinine 1.48. REVIEW OF SYSTEMS: CONSTITUTIONAL: No fever, no malaise, no fatigue. HEENT: No recent visual problems or hearing problems. Denied any sore throat. CARDIOVASCULAR: No chest pain, orthopnea, PND, no palpitations, no syncope. PULMONARY: No shortness of breath, no cough, no hemoptysis. GASTROINTESTINAL: Reports of multiple episodes of diarrhea, no nausea, no vomiting, no abdominal pain. NEUROLOGICAL: No headaches, no numbness. Reports left weakness and speech has improved. Weakness improving as well PHYSICAL EXAMINATION: GENERAL: The patient is alert and oriented x3, not in any acute distress. Well developed, well nourished. Appears older than stated age, obese HEENT: Pupils are round and equally reacting to light. EOMI. No scleral icterus. No conjunctival pallor. Normocephalic, atraumatic. No pharyngeal erythema. No thyromegaly. CARDIOVASCULAR: S1 and S2 muffled PULMONARY: Chest is clear to auscultation, no wheezing or crackles. ABDOMEN: Soft, obese, nontender, nondistended, normoactive bowel sounds. No palpable organomegaly. MUSCULOSKELETAL: No joint swelling or deformity. EXTREMITIES: No cyanosis, clubbing, or pedal edema. NEUROLOGICAL: left side weakness although improving SKIN: No rashes. Assessment: Acute ischemic stroke as noted on imaging, initially presenting with left-sided paresis, dysarthria and left sided facial droop which is resolved and is post TNK infusion Carotid artery stenosis with 70% diameter narrowing of the right carotid bulb/pr oximal internal carotid artery, scheduled to undergo right carotid endarterectomy on 07/13/2024 with vascular surgery Hypertension History hyperlipidemia History of TIA 2023 Chronic kidney disease Obesity with a BMI 32.5 GI prophylaxis DVT prophylaxis Full Code Plan: Neurology following underwent further neurological workup noted to have significant right ICA stenosis and vascular surgery consulted with plans on doing right carotid endarterectomy on 07/13/2024. Per vascular surgery, patient is to continue on Brilinta and will continue twice daily Cardiology consulted for cardiology clearance for surgical intervention Patient reports to having some diarrhea and this happens frequently at home and uses Pepto-Bismol with relief. Will add Pepto-Bismol and if persistent may obt ain C. difficile sample although patient has not been on antibiotics most recently. PT/OT/Speech therapy consultation Patient currently maintained on 3 S. and will continue telemetry monitoring Repeat labs in the a.m., replace electrolytes per protocol The impression and plan of care has been dictated by Jaelyn Guillen, Nurse Practitioner as directed. Dr. Steve MD I have performed a history and physical examination and medical decision making of this patient, discussed the same with the dictator, and agree with the dictators assessment and plan as written, documented as a scribe. Based on total visit time, I have performed more than 50% of this visit. Objective - Vital Signs Vital signs: Vital Signs Temp 97.8 F 07/12/24 20:24 Pulse 59 L 07/12/24 20:24 Resp 20 07/12/24 20:24 BP 145/81 07/12/24 20:24 Pulse Ox 99 07/12/24 20:24 FiO2 21 07/08/24 09:19 Intake & Output 07/12/24 07/12/24 07/13/24 06:59 18:59 06:59 Intake Total 120 Balance 120 Weight 73.3 kg Intake: Oral 120 Other: # Voids 1 3 1 # Bowel Movements 1 - Labs CBC & Chem 7: 07/11/24 07:43 07/12/24 07:00 Labs: Abnormal Lab Results - Last 24 Hours (Table) 07/12/24 Range/Units 07:00 Sodium 136 L (137-145) mmol/L BUN 24 H (7-17) mg/dL Creatinine 1.48 H (0.52-1.04) mg/dL Assessment and Plan Time with Patient: Less than 30
[2024-07-13] MEDS: SODIUM CHLORIDE 0.9% 1,000 ML IV SCH (08:25)
[2024-07-13 08:29] LABS: HCT 40.6 % (34.0-46.0); HGB 12.4 gm/dL (11.4-16.0); MCH 29.6 pg (25.0-35.0); MCHC 30.5 g/dL (31.0-37.0); MCV 97.1 fL (80.0-100.0); Mean Platelet Volume 7.5; Platelet Count 146 k/uL (150-450); RBC 4.18 m/uL (3.80-5.40); RDW 13.4 % (11.5-15.5); WBC 4.7 k/uL (3.8-10.6)
[2024-07-13] MEDS ORDERED: RX INFO: IV CONTRAST WAS GIVEN 1 EACH MISC MISCELLANE PRN (09:00)
[2024-07-13 09:42] LABS: African American GFR (CKD) 45 (>60 ml/min/1.73 sqM); Anion Gap 8 mmol/L; Blood Urea Nitrogen 26 mg/dL (7-17); Calcium 8.9 mg/dL (8.4-10.2); Carbon Dioxide 24 mmol/L (22-30); Chloride 104 mmol/L (98-107); Glucose 95 mg/dL (74-99); Non-African American GFR(CKD) 39 (>60 ml/min/1.73 sqM); Potassium 3.9 mmol/L (3.5-5.1); Sodium 136 mmol/L (137-145)
[2024-07-13] MEDS ORDERED: PROTAMINE SULFATE 10 MG/ML 5 ML VIAL ONE (09:46)
[2024-07-13] MEDS ORDERED: fentaNYL (PF) 50 MCG/ML 2 ML AMP ONE (09:46)
[2024-07-13] MEDS ORDERED: methylPREDNISolone SOD SUCCI 125 MG/2 ML VIAL ONE (09:46)
[2024-07-13] MEDS ORDERED: GLYCOPYRROLATE 0.2 MG/ML 2 ML VIAL ONE (09:46)
[2024-07-13] MEDS ORDERED: DEXMEDETOMIDINE/0.9% NACL(PMX) 400 MCG/100 ML IV ONE (09:46)
[2024-07-13] MEDS ORDERED: HEPARIN SODIUM,PORCINE 10,000 UNIT/ML 1 ML VIAL ONE (09:46)
[2024-07-13] MEDS ORDERED: PHENYLEPHRINE 10 MG/ML VIAL ONE (09:46)
[2024-07-13] MEDS ORDERED: ePHEDrine 50 MG/ML 1 ML VIAL ONE (09:46)
[2024-07-13] MEDS: IV FLUID CONTINUATION 1,000 ML IV ONE ×2 (09:52→13:42)
[2024-07-13] MEDS: LIDOCAINE 1% INJ 10MG/ML (20 ML MDV) SQ ONE (10:18)
[2024-07-13] MEDS: IOPAMIDOL-370 100ML BTL INJ ONE (10:50)
--- NOTE | 2024-07-13 11:13 | P.OP ---
Date of Procedure: 07/13/24 Description of Procedure: Preoperative diagnosis: Right, symptomatic internal carotid artery stenosis Postoperative diagnosis: Same Procedure: Right transcarotid artery revascularization with stenting. Right common femoral vein central venous catheter placement under ultrasound guidance Surgeon: Bruna Dle Valle DO Resident Programs Assistant: Mayi Mcneil Anesthesia: Conscious sedation Complications: None Condition: Stable Flow reversal time: 8 minutes Lesion length: 20 mm Indication for procedure: Patient is a 74-year-old female with recent symptomatic right internal carotid artery stenosis on imaging and findings. Due to some findings and medical comorbidities the plan was to go forward with a transcarotid artery revascularization. Previous discussion had with the patient and family as the patient is currently on Brilinta and allergic to aspirin. Does pose mildly higher risk supposedly without dual antiplatelet therapy however at this time do believe that going forward in this manner is the better option for this patient. They seemingly understood and were willing to proceed. Operative narrative: the patient was brought to the [facility] and laid in a supine position. The area of the neck and groins were prepped and draped in usual sterile fashion after appropriate anesthetic was performed per the anesthesiologist. A timeout was performed in normal fashion and antibiotics were administered prior to incision. Utilizing ultrasound the right common carotid artery was located and a transverse incision was created overlying this area after proper anesthetization. Dissection was carried between the sternocleidomastoid musculature down to the carotid sheath. The sheath was then incised and the common carotid artery was located and dissected free in a circumferential manner and controlled with umbilical tape. Once controlled, attention was placed down to the common femoral vein and utilizing ultrasound the vein was cannulated and the 8-Wallisian sheath was placed in normal fashion. Attention was then placed back to the carotid artery and the patient was administered heparin and followed with ACTs and redosed as needed for ACT above 250. A pursestring suture was then placed at the common carotid artery with 5-0 Prolene and utilizing a micropuncture needle the common carotid artery was accessed and wire was placed followed by a 4-Wallisian sheath. Carotid angiogram was then obtained demonstrating significant stenosis in the internal carotid artery. Stiff wire was then placed followed by the 8 [place] sheath. Flow reversal was then established with the enroute [employer]OR system after patient's blood pressure was increased to above 160, heart rate above 60 and ACT above 250. 014 wire was then placed across the lesion followed by a 5.5 x 20 mm Marques balloon and balloon angioplasty was performed followed by an 8 -6 x 40 mm [place] stent. Postdilatation was not performed and final angiogram was obtained demonstrating complete resolution of the stenosis. All guidewires and catheters were removed and the sheath was removed and the arteriotomy was secured with the previously placed pursestring suture. Hemostasis was assured with Gelfoam and thrombin. The area was irrigated and closed. The platysma was closed with 3-0 Vicryl. The skin was closed with running 4-0 Monocryl in subcuticular fashionThe femoral sheath was also removed and pressure was held for hemostasis. The patient all procedure well and was moving all extremities and following commands. The patient was then sent to PACU for recovery.
[2024-07-13] MEDS ORDERED: ATROPINE SULFATE 0.1 MG/ML 10ML SYRINGE IV PRN (11:14)
[2024-07-13] MEDS ORDERED: MAG HYDROX/AL HYDROX/SIMETH 30 ML CUP PO PRN (11:14)
--- NOTE | 2024-07-13 11:42 | IR ---
EXAMINATION TYPE: IR stent intravas non coronary DATE OF EXAM: 07/13/2024 11:14 AM COMPARISON: Pre Operative Images if available both CT/MRI or plain film CLINICAL INDICATION: Female, 74 years old with history of TIA, 2.1m/11.3DAP, rt carotid cut down/stur ed Rt gr V manu; TECHNIQUE: IR stent intravas non coronary, multiple fluoroscopic images provided for procedure. DAP: 11.3 mGym2 Gycm2 uGym2 cGycm2 or equivalent. FINDINGS: IMPRESSION: 1. Report was generated for administrative purposes only. 2. Please see the operative/procedural note for further details. [facility], , 07/13/2024 11:40 AM
[2024-07-13] MEDS: PHENYLEPHRINE-0.9% NACL SYG 1,000 MCG/10 ML SYRINGE IVP ONE (11:50)
--- NOTE | 2024-07-13 11:51 | P.ANPRN ---
Procedure Note - Anesthesia - Invasive Line Left Arterial Line Time Out Performed: Yes Date of Procedure: 07/13/24 Time of Procedure: 09:39 Location of Patient: [facility] Preparation: Sterile Prep, Sterile Dressing Arterial Line Location: Radial Ultrasound Used: No Purpose - Visualization and Identification of Vasculature: No Image Stored and Saved: No Narrative: Invasive line placement per sterile protocol utilized.
--- NOTE | 2024-07-13 12:11 | P.PN ---
Subjective Progress Note Date: 07/12/24 07/12/2024: Patient was seen for follow-up. Patient is laying in the bed, appears comfortable. Offers no complaints. No focal symptoms. 07/10/2024: Patient was initially seen by Dr. Nilay Rodriguez. Please refer to his note for details. Patient is a 74-year-old female with stroke, status post IV TNK (had left-sided weakness, numbness that resolved). Patient states she is doing better as compared to how she came with. Patient is sitting comfortably in her recliner. Some of the work-up during this hospital visit: Lipid panel is triglyceride 59, cholesterol is 169, LDL 78 and HDL 78 Hemoglobin A1c is 5.6. While in the ED she had CT head which was negative for acute process. A code stroke was activiated and ED physician spoke with Dr. Díaz and agreed to pursue with TNK. CT head: No acute intracranial hemorrhage or midline shift. Old right fron christianne/parietal lob infarct. I personally reviewed CT and agree with report. CTA head and neck: No large vessel occlusion or aneurysm at the level of [place]. Moderate to severe plaque right carotid bulb and proximal internal carotid artery causing significant stenosis with lumen diameter narrowing measured around 70%. Repeat CT head 24 hours post TNK: No acute intracranial hemorrhage or midline shift. There is mild diffuse age-related cerebral atrophy and mild to moderate chronic small vessel ischemic change along with old right-sided infarcts are all redemonstrated. No significant change from 1 day earlier. I personally reviewed the CT and agree there is no acute or subacute stroke. The echo is reported as left ventricular ejection fraction of 60 to 65%. Normal right ventricular size and function. Mild to moderate mitral regurgitation. Mild tricuspid regurgitation. Aortic valve sclerosis. Objective - Vital Signs Vital signs: Vital Signs Temp 98.4 F 07/12/24 16:34 Pulse 61 07/12/24 16:34 Resp 20 07/12/24 16:34 BP 145/76 07/12/24 16:34 Pulse Ox 98 07/12/24 16:34 FiO2 21 07/08/24 09:19 Intake & Output 07/11/24 07/12/24 07/12/24 18:59 06:59 18:59 Intake Total 480 Balance 480 Weight 73.3 kg Intake: Oral 480 Other: Voiding Method Toilet Bedside Commode Diaper Incontinent # Voids 1 1 # Bowel Movements 3 - Exam Patient is an elderly female, laying in the bed, in no distress. Her speech and language functions are normal. Cranial nerves are normal. Visual harris are full. Extraocular muscles are intact. Face is symmetric. Tongue protrudes in midline. On muscle strength testing, there is no pronator drift and the strength is normal. Sensation to touch is equal with no neglect. No ataxia. - Labs CBC & Chem 7: 07/13/24 08:12 07/13/24 08:12 Labs: Abnormal Lab Results - Last 24 Hours (Table) 07/12/24 Range/Units 07:00 Sodium 136 L (137-145) mmol/L BUN 24 H (7-17) mg/dL Creatinine 1.48 H (0.52-1.04) mg/dL Assessment and Plan Assessment: This is a 74-year-old woman who presented emergency department because of left facial droop left-sided weakness and numbness. She received TNKase yesterday. Acute ischemic stroke with symptoms of left-sided weakness numbness and speech difficulty. Post IV TNK on 07/07/2024----Today her symptoms resolved and repeat CT head is negative for acute process. Etiology of stroke probable due to symptomatic right ICA stenosis Right ICA stenosis of about 70% on the CT angiography. Patient had 2 carotid duplex at the outside facility at [facility] which was negative for any significant stenosis History of stroke over the right frontal more than parietal region History of TIA Hypertension Hyperlipidemia Plan: Patient started on Brilinta 90 mg 1 tablet twice daily. Patient failed Plavix. She allergic to aspirin Continue Lipitor 40 mg nightly that sufficient for secondary stroke prophylaxis MRI of the brain revealed acute/subacute CVA involving the right basal ganglia and within the cortex within the right frontal lobe. Petechial hemorrhage within the right basal ganglia demonstrated on susceptibility weighted imaging. Nonspecific white matter changes, likely secondary to small vessel ischemic disease. For right carotid stenosis, vascular surgery are on board, and planning for TCAR in the morning. Continue neurochecks Cardiac monitoring PT and OT and [employer] are consulted Recommend blood pressure control per IV TNK protocol For DVT for prophylaxis on The rest of the medical management to primary and other specialist.
[2024-07-13] MEDS: PSEUDOEPHEDRINE 30 MG TAB PO SCH (12:43)
[2024-07-13] MEDS: PHENYLEPHRINE 40 MG in SODIUM CHLORIDE 0.9% 250 ML IV SCH (14:00)
[2024-07-13 16:02] LABS: Glucose,Whole Blood 104 mg/dL (70-110)
--- NOTE | 2024-07-13 19:40 | P.PN ---
Subjective Progress Note Date: 07/13/24 This is a 74-year-old female with medical history significant for stroke, hypertension, hyperlipidemia. Patient had a prior TIA in 2023. Patient presents to the ER at 2245 yesterday evening with last known well of 10 PM. Patient arrived by EMS for suspected stroke per family they report patient had fallen off the couch; and noted to have weakness of the left arm and leg as well as garbled speech. Patient was at [facility] last week for TIA and discharged on the . She was admitted from June 26 to June 28, for numbness and paresthesias of the left hand which had resolved prior to coming to the ER. Patient's brain CT there did show a hypodensity in the right parietal region which may be age-indeterminate. Echocardiogram completed at [facility] reveals an EF of 50 to 55% with no intra-arterial shunt on bubble study. Her preliminary carotid duplex shows no evidence of hemodynamically significant stenosis. Patient was discharged on Plavix and Lipitor and was recommended for outpatient MRI and MRA of the brain. Noted that she did have a brain MRI completed on June 05, 2024 which reveals no evidence of intracranial mass/acute/subacute infarct. There is regions of encephalomalacia with gliosis from prior ischemic injury involving the right frontal and parietal lobes there is nonspecific white matter changes likely related to small vessel ischemic disease. She followed up with her primary Neurologist Dr. Romulo Gracia last Friday. She reports now for stroke like symptoms and found to have NIH score of 9 and a code stroke was initiated. Neurosurgery felt patient would benefit from TNK. Patient received TNK infusion and was admitted to the ICU for monitoring. Brain CT reveals no acute intracranial hemorrhage or midline shift there is mild to moderate diffuse age-related cerebral atrophy and moderate chronic small vessel ischemic change along with old right frontal parietal lobe infarcts. Chest X-ray reveals cardiomegaly without acute pulmonary process. CT angiography revealed no large vessel occlusion or aneurysm at the level of the [place] there is moderate severe plaque at the right carotid bulb and proximal internal carotid artery causing significant stenosis with lumen diameter narrowing measured around 70%. CBC was unremarkable with the exception of a platelet count of 135, sodium of 134 BUN of 31 creatinine of 1.34 glucose of 108. Troponin level is negative x 3. Patient was admitted to the hospital with a consult placed to neurology. Patient was admitted to the intensive care unit and is evaluated today resting in bed. Continues to have some mild left UE weakness and left facial droop. 07/09/2024 Patient is evaluated in follow-up in the intensive care unit. Her symptoms of left weakness as well as her left facial droop are significantly improved. Vascular surgery has evaluate this patient and is planning for a right carotid endarterectomy next Friday. Patient has been started on Brilinta 90 mg twice daily patient did receive her first dose today. Patient will be going for a brain MRI today. Cardiogram reveals an EF of 60 to 65% with mild to moderate MR and mild tricuspid regurgitation. Patient had repeat brain CT post tenecteplase without signs of acute hemorrhage midline shift and there is old right-sided infarcts redemonstrated. 07/10/2024 Patient is seen in follow-up today with no reported issues overnight. Patient with multiple consultations following including vascular surgery, neurology and cardiology consulted. Ongoing for stroke workup and also noted to have significant right ICA stenosis, scheduled to undergo right carotid endarterectomy on 07/13/2024. Awaiting cardiology clearance. Patient is afebrile with no reported chest pain or shortness of breath. Patient has been tolerating diet with no reported nausea or vomiting. Kidney function is mildly elevated with a creatinine of 1.47 and will follow-up on repeat labs. Encouraged increase activity as tolerated including sitting up in the chair more frequently. 07/11/2024 Patient is seen in follow-up today being followed by vascular surgery along with cardiology with plans of right carotid endarterectomy on Friday with vascular surgery. Patient is reporting some loose stools and will add Pepto-Bismol. Patient reports this frequently happens at home and is relieved with Pepto- Bismol. Patient has not been on antibiotics and highly unlikely for C. difficile although if persistent will evaluate. Patient denies chest pain or shortness of breath. Patient reports has been tolerating diet. 07/12/2024 Patient evaluated today in follow up on the medical floor. Patient continues to report no new neurological symptoms. Facial droop and left sided hemiparesis are resolved. Patient scheduled to undergo TCAR tomorrow 07/13/2024. No further reports of loose stools today. Sodium 136, BUN 24, creatinine 1.48. 07/13/2024 Patient will be going for TCAR today with Dr. Del Valle and will be monitored in the ICU post procedure. Brain MRI was positive for an acute stroke in the right basal ganglia. Patient remains on brilinta. REVIEW OF SYSTEMS: CONSTITUTIONAL: No fever, no malaise, no fatigue. HEENT: No recent visual problems or hearing problems. Denied any sore throat. CARDIOVASCULAR: No chest pain, orthopnea, PND, no palpitations, no syncope. PULMONARY: No shortness of breath, no cough, no hemoptysis. GASTROINTESTINAL: Reports of multiple episodes of diarrhea, no nausea, no vomiting, no abdominal pain. NEUROLOGICAL: No headaches, no numbness. Reports left weakness and speech has improved. Weakness improving as well PHYSICAL EXAMINATION: GENERAL: The patient is alert and oriented x3, not in any acute distress. Well developed, well nourished. Appears older than stated age, obese HEENT: Pupils are round and equally reacting to light. EOMI. No scleral icterus. No conjunctival pallor. Normocephalic, atraumatic. No pharyngeal erythema. No thyromegaly. CARDIOVASCULAR: S1 and S2 muffled PULMONARY: Chest is clear to auscultation, no wheezing or crackles. ABDOMEN: Soft, obese, nontender, nondistended, normoactive bowel sounds. No palpable organomegaly. MUSCULOSKELETAL: No joint swelling or deformity. EXTREMITIES: No cyanosis, clubbing, or pedal edema. NEUROLOGICAL: left side weakness although improving SKIN: No rashes. Assessment: Acute ischemic stroke as noted on imaging, initially presenting with left-sided paresis, dysarthria and left sided facial droop which is resolved and is post TNK infusion Carotid artery stenosis with 70% diameter narrowing of the right carotid bulb/proximal internal carotid artery, scheduled to undergo right carotid endarterectomy today 07/13/2024 with vascular surgery Hypertension History hyperlipidemia History of TIA 2023 Chronic kidney disease Obesity with a BMI 32.5 GI prophylaxis DVT prophylaxis Full Code Plan: Neurology following underwent further neurological workup noted to have significant right ICA stenosis and vascular surgery consulted with plans on doing right carotid endarterectomy today 07/13/2024. Per vascular surgery, patient is to continue on Brilinta and will continue twice daily Cardiology consulted for cardiology clearance for surgical intervention Patient reports to having some diarrhea and this happens frequently at home and uses Pepto-Bismol with relief. Will add Pepto-Bismol and if persistent may o btain C. difficile sample although patient has not been on antibiotics most recently. No further reports of loose stools at this time will continue to monitor. PT/OT/Speech therapy consultation Patient will be moved to the ICU post procedure, continue telemetry monitoring Repeat labs in the a.m., replace electrolytes per protocol The impression and plan of care has been dictated by Jaelyn Guillen, Nurse Practitioner as directed. Dr. Steve MD I have performed a history and physical examination and medical decision making of this patient, discussed the same with the dictator, and agree with the dictators assessment and plan as written, documented as a scribe. Based on total visit time, I have performed more than 50% of this visit. Objective - Vital Signs Vital signs: Vital Signs Temp 97.6 F 07/13/24 15:57 Pulse 63 07/13/24 19:00 Resp 16 07/13/24 19:00 BP 122/60 07/13/24 15:45 Pulse Ox 99 07/13/24 19:00 FiO2 21 07/08/24 09:19 Intake & Output 07/13/24 07/13/24 07/14/24 06:59 18:59 06:59 Intake Total 2074.635 Output Total 850 Balance 1224.635 Weight 71.8 kg Intake: IV 2060 Invasive Line 3 10 Sodium Chloride 0.9% 1, 200 000 ml @ 50 mls/hr IV . Q20H KATY Rx#:[id number] Intake, IV Titration 14.635 Amount Phenylephrine 40 mg In 14.635 Sodium Chloride 0.9% 250 ml @ 0.5 MCG/KG/MIN 13. 678 mls/hr IV .[id number] KATY Rx#:[id number] Output: Urine 850 Other: Voiding Method Toilet Bedpan # Voids 1 1 # Bowel Movements 1 ABP, PAP, CO, CI - Last Documented Arterial Blood Pressure 126/60 - Labs CBC & Chem 7: 07/13/24 08:12 07/13/24 08:12 Labs: Abnormal Lab Results - Last 24 Hours (Table) 07/13/24 07/13/24 Range/Units 08:12 08:12 MCHC 30.5 L (31.0-37.0) g/dL Plt Count 146 L (150-450) k/uL Sodium 136 L (137-145) mmol/L BUN 26 H (7-17) mg/dL Creatinine 1.36 H (0.52-1.04) mg/dL Assessment and Plan Time with Patient: Less than 30
[2024-07-14 04:37] LABS: Basophils % (A) 0 %; Eosinophils % (A) 0 %; HCT 38.6 % (34.0-46.0); HGB 12.1 gm/dL (11.4-16.0); Lymphocytes # (A) 0.5 k/uL (1.0-4.8); Lymphocytes % (A) 10 %; MCH 30.5 pg (25.0-35.0); MCHC 31.4 g/dL (31.0-37.0); MCV 97.1 fL (80.0-100.0); Mean Platelet Volume 7.2; Monocytes # (A) 0.1 k/uL (0-1.0); Monocytes % (A) 3 %; Neutrophils # (A) 4.5 k/uL (1.3-7.7); Neutrophils % (A) 86 %; Platelet Count 140 k/uL (150-450); RBC 3.98 m/uL (3.80-5.40); RDW 13.4 % (11.5-15.5); WBC 5.2 k/uL (3.8-10.6)
[2024-07-14 04:51] LABS: African American GFR (CKD) 58 (>60 ml/min/1.73 sqM); Anion Gap 8 mmol/L; Blood Urea Nitrogen 23 mg/dL (7-17); Calcium 8.3 mg/dL (8.4-10.2); Carbon Dioxide 20 mmol/L (22-30); Chloride 105 mmol/L (98-107); Glucose 142 mg/dL (74-99); Non-African American GFR(CKD) 50 (>60 ml/min/1.73 sqM); Potassium 4.1 mmol/L (3.5-5.1); Sodium 133 mmol/L (137-145)
--- NOTE | 2024-07-14 11:42 | P.PN ---
Subjective Progress Note Date: 07/13/24 07/13/2024: Patient was seen for a follow-up. Patient had undergone successful right TCAR earlier today with stenting by Dr. Maggi Jones. Patient is doing well. Denies any focal symptoms. Denies headache. She is doing well. 07/12/2024: Patient was seen for follow-up. Patient is laying in the bed, appears comfortable. Offers no complaints. No focal symptoms. 07/10/2024: Patient was initially seen by Dr. Nilay Rodriguez. Please refer to his note for details. Patient is a 74-year-old female with stroke, status post IV TNK (had left-sided weakness, numbness that resolved). Patient states she is doing better as compared to how she came with. Patient is sitting comfortably in her recliner. Some of the work-up during this hospital visit: Lipid panel is triglyceride 59, cholesterol is 169, LDL 78 and HDL 78 Hemoglobin A1c is 5.6. While in the ED she had CT head which was negative for acute process. A code stroke was activiated and ED physician spoke with Dr. Díaz and agreed to pursue with TNK. CT head: No acute intracranial hemorrhage or midline shift. Old right frontal/parietal lob infarct. I personally reviewed CT and agree with report. CTA head and neck: No large vessel occlusion or aneurysm at the level of [place]. Moderate to severe plaque right carotid bulb and proximal internal carotid artery causing significant stenosis with lumen diameter narrowing measured around 70%. Repeat CT head 24 hours post TNK: No acute intracranial hemorrhage or midline shift. There is mild diffuse age-related cerebral atrophy and mild to moderate chronic small vessel ischemic change along with old right-sided infarcts are all redemonstrated. No significant change from 1 day earlier. I personally review ed the CT and agree there is no acute or subacute stroke. The echo is reported as left ventricular ejection fraction of 60 to 65%. Normal right ventricular size and function. Mild to moderate mitral regurgitation. Mild tricuspid regurgitation. Aortic valve sclerosis. Objective - Vital Signs Vital signs: Vital Signs Temp 97.6 F 07/13/24 15:57 Pulse 60 07/13/24 16:00 Resp 18 07/13/24 16:00 BP 122/60 07/13/24 15:45 Pulse Ox 100 07/13/24 16:00 FiO2 21 07/08/24 09:19 Intake & Output 07/12/24 07/13/24 07/13/24 18:59 06:59 18:59 Intake Total 120 1924.635 Output Total 850 Balance 120 1074.635 Weight 71.8 kg Intake: IV 1910 Invasive Line 3 10 Sodium Chloride 0.9% 1, 50 000 ml @ 50 mls/hr IV . Q20H KATY Rx#:[id number] Intake, IV Titration 14.635 Amount Phenylephrine 40 mg In 14.635 Sodium Chloride 0.9% 250 ml @ 0.5 MCG/KG/MIN 13. 678 mls/hr IV .[id number] KATY Rx#:[id number] Oral 120 Output: Urine 850 Other: Voiding Method Toilet Bedpan # Voids 3 1 1 # Bowel Movements 1 1 ABP, PAP, CO, CI - Last Documented Arterial Blood Pressure 133/58 - Exam Patient is an elderly female, laying in the bed, in no distress. Her speech and language functions are normal. Cranial nerves are normal. Visual harris are full on confrontation with no neglect. Extraocular muscles are intact. Face is symmetric. Tongue protrudes in midline. On muscle strength testing, there is no pronator drift and the strength is normal. Sensation to touch is equal with no neglect. No ataxia. - Labs CBC & Chem 7: 07/14/24 04:10 07/14/24 04:10 Labs: Abnormal Lab Results - Last 24 Hours (Table) 07/13/24 07/13/24 Range/Units 08:12 08:12 MCHC 30.5 L (31.0-37.0) g/dL Plt Count 146 L (150-450) k/uL Sodium 136 L (137-145) mmol/L BUN 26 H (7-17) mg/dL Creatinine 1.36 H (0.52-1.04) mg/dL Assessment and Plan Assessment: This is a 74-year-old woman who presented emergency department because of left facial droop left-sided weakness and numbness. Acute ischemic stroke with symptoms of left-sided weakness numbness and speech difficulty. Post IV TNK on 07/07/2024. Etiology of stroke probable due to symptomatic right ICA stenosis Right ICA stenosis of about 70% on the CT angiography. Patient had 2 carotid duplex at the outside facility at [facility] which was negative for any signif icant stenosis History of stroke over the right frontal more than parietal region History of TIA Hypertension Hyperlipidemia Plan: Patient started on Brilinta 90 mg 1 tablet twice daily. Patient failed Plavix. She allergic to aspirin Continue Lipitor 40 mg nightly that sufficient for secondary stroke prophylaxis MRI of the brain revealed acute/subacute CVA involving the right basal ganglia and within the cortex within the right frontal lobe. Petechial hemorrhage within the right basal ganglia demonstrated on susceptibility weighted imaging. Nonspecific white matter changes, likely secondary to small vessel ischemic disease. Patient had undergone successful right TCAR this morning. Continue neurochecks Cardiac monitoring PT and OT and SR. MERCHANDISE PLANNER are consulted Optimize control of blood pressure For DVT for prophylaxis on heparin 5000 units subcu every 12 hours Neurologically clear for discharge with above recommendations, once cleared by surgery. May follow-up with neurologist outpatient.
--- NOTE | 2024-07-14 12:27 | P.PN ---
Subjective Progress Note Date: 07/14/24 Principal diagnosis: ICA stenosis, acute stroke Patient is seen and examined today as a follow-up. She is postop day #1 for right transcarotid artery revascularization. She reports some mild tenderness over incision. No other complaints. Alejandro-Synephrine was discontinued yesterday afternoon around 1600. Blood pressures have been stable. She denies any new focal deficits. States she wants to go home. She is tolerating her regular diet. Up with walker. Objective - Vital Signs Vital signs: Vital Signs Temp 97.8 F 07/14/24 05:00 Pulse 80 07/14/24 07:00 Resp 19 07/14/24 07:00 BP 122/60 07/13/24 15:45 Pulse Ox 98 07/14/24 07:00 FiO2 21 07/08/24 09:19 Intake & Output 07/13/24 07/14/24 07/14/24 18:59 06:59 18:59 Intake Total 2074.635 1280 50 Output Total 850 750 Balance 1224.635 530 50 Intake: IV 2060 580 50 Invasive Line 3 10 30 Sodium Chloride 0.9% 1, 200 550 50 000 ml @ 50 mls/hr IV . Q20H KATY Rx#:[id number] Intake, IV Titration 14.635 Amount Phenylephrine 40 mg In 14.635 Sodium Chloride 0.9% 250 ml @ 0.5 MCG/KG/MIN 13. 678 mls/hr IV .[id number] KATY Rx#:[id number] Oral 700 Output: Urine 850 750 Other: Voiding Method Bedpan Bedpan # Voids 1 # Bowel Movements 1 ABP, PAP, CO, CI - Last Documented Arterial Blood Pressure 138/59 - Exam General appearance: The patient is alert, oriented, appears in no acute di stress. HET: Head is normocephalic and atraumatic. Pupils are equal and reactive. Neck: Supple. Right side of neck with incision well-approximated without any active bleeding and no hematoma. There is minimal swelling and ecchymosis. Heart: Regular. Lungs: Equal expansion, normal respiratory effort. Abdomen: Soft, nontender, nondistended. Extremities: Normal skin color and turgor. Right groin access site with minimal ecchymosis, no bleeding or hematoma noted. Neurological: Speech appears fluent, answers questions appropriately. Mild weakness bilateral upper and lower extremities. - Labs CBC & Chem 7: 07/14/24 04:10 07/14/24 04:10 Labs: Abnormal Lab Results - Last 24 Hours (Table) 07/13/24 07/14/24 07/14/24 Range/Units 08:12 04:10 04:10 Plt Count 140 L (150-450) k/uL Lymphocytes # 0.5 L (1.0-4.8) k/uL Sodium 136 L 133 L (137-145) mmol/L Carbon Dioxide 20 L (22-30) mmol/L BUN 26 H 23 H (7-17) mg/dL Creatinine 1.36 H 1.11 H (0.52-1.04) mg/dL Glucose 142 H (74-99) mg/dL Calcium 8.3 L (8.4-10.2) mg/dL Assessment and Plan Assessment: 1. Symptomatic right ICA stenosis 2. Acute stroke involving right basal ganglia and right frontal lobe with left- sided weakness and aphasia status post TNK infusion 3. Right thyroid nodule, benign pathology from 04/22/2024 4. 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 Hypertension 6. Chronic kidney disease 7. Hyperlipidemia 8. Pancreatic lesions, patient scheduled further evaluation with [facility] Plan: 1. Continue statin, continue Brilinta as ordered 2. Continue with OT, PT and speech therapy 3. Encourage ambulation 4. Continue heart healthy diet 5. Discharge instructions reviewed with patient 6. Patient is clear for discharge from vascular surgery. Follow-up in 2 weeks Thank you for this consultation, we will continue to follow. The impression and plan of care has been dictated as directed. Dr. Maggi Harper performed a history and examination of this patient, discussed the same with the dictator. I agree with the dictator's note ,documented as a scribe. Any additional findings or plans will be noted.
[2024-07-14 13:10] VITALS: BP 97/74; PULSE 89; RESP 18; TEMP 97.9
--- NOTE | 2024-07-15 18:41 | P.DS ---
Providers Date of admission: 07/08/24 00:24 Attending physician: Deon Álvarez MD Consults: 07/08/24 00:22 Consult Physician Routine Consulting Provider: Nilay Rodriguez Consult Reason/Comments: Acute ischemic stroke Do you want consulting provider notified?: Yes 07/08/24 01:15 Consult Physician Routine Consulting Provider: Jesse Kim Consult Reason/Comments: Acute ischemic stroke, left-sided weakness. TNKase administered Do you want consulting provider notified?: Already Contacted 07/08/24 10:01 Consult Physician Routine Consulting Provider: Bruna Dixon Consult Reason/Comments: 70% right proximal ICA stenosis recurrent CVA Do you want consulting provider notified?: Yes 07/09/24 08:09 Consult Physician Routine Consulting Provider: Moises Fleming Consult Reason/Comments: cardiac clearance for TCAR vs endarterectomy Do you want consulting provider notified?: Yes Primary care physician: Champ Fong [facility] Course: Final Diagnosis Acute stroke involving right basal ganglia and right frontal lobe with left- sided weakness and aphasia status post TNK infusion Carotid artery stenosis with symptomatic, right ICA stenosis of 70% status post Right TCAR Hypertension Hyperlipidemia History of TIA/CVA with old right frontal/parietal infarct Chronic kidney disease Obesity with a BMI 32.5 Right thyroid nodule, benign pathology from 04/22/2024 Pancreatic lesions, patient scheduled further evaluation with [facility] Discharge Disposition Stable for discharge home. Patient to continue oral brilinta 90 mg twice daily. Patient to continue all same home medications including amlodipine, carvedilol, singulair and lipitor. Recommending follow up with Dr Del Valle in 2 weeks. Follow up with PCP Dr Champ Fong in 1 to 2 days. Hospital Course This is a 74-year-old female with medical history significant for stroke, hypertension, hyperlipidemia. Patient had a prior TIA in 2023. Patient presents to the ER at 2245 yesterday evening with last known well of 10 PM. Delfino rowland arrived by EMS for suspected stroke per family they report patient had fallen off the couch; and noted to have weakness of the left arm and leg as well as garbled speech. Patient was at [facility] last week for TIA and discharged on the . She was admitted from June 26 to June 28, for numbness and paresthesias of the left hand which had resolved prior to coming to the ER. Patient's brain CT there did show a hypodensity in the right parietal region which may be age-indeterminate. Echocardiogram completed at [facility] reveals an EF of 50 to 55% with no intra-arterial shunt on bubble study. Her preliminary carotid duplex shows no evidence of hemodynamically significant stenosis. Patient was discharged on Plavix and Lipitor and was recommended for outpatient MRI and MRA of the brain. Noted that she did have a brain MRI completed on June 05, 2024 which reveals no evidence of intracranial mass/acute/subacute infarct. There is regions of encephalomalacia with gliosis from prior ischemic injury involving the right frontal and parietal lobes there is nonspecific white matter changes likely related to small vessel ischemic disease. She followed up with her primary Neurologist Dr. Romulo Gracia last Phil. She reports now for stroke like symptoms and found to have NIH score of 9 and a code stroke was initiated. Neurosurgery felt patient would benefit from TNK. Patient received TNK infusion and was admitted to the ICU for monitoring. Brain CT reveals no acute intracranial hemorrhage or midline shift there is mild to moderate diffuse age-related cerebral atrophy and moderate chronic small vessel ischemic change along with old right frontal parietal lobe infarcts. Chest X-ray reveals cardiomegaly without acute pulmonary process. CT angiography revealed no large vessel occlusion or aneurysm at the level of the [place] there is moderate severe plaque at the right carotid bulb and proximal internal carotid artery causing significant stenosis with lumen diameter narrowing measured around 70%. CBC was unremarkable with the exception of a platelet count of 135, sodium of 134 BUN of 31 creatinine of 1.34 glucose of 108. Troponin level is negative x 3. Patient was admitted to the hospital with a consult placed to neurology. Patient was admitted to the intensive care unit., Continues to have some mild left UE weakness and left facial droop which has significantly improved over the hospital stay. Her brain MRI as positive for acute/subacute CVA involving the right basal ganglia and within the cortex within the right frontal lobe. Petechial hemorrhage with the right basal gangla demonstrated on susceptibility weighted imaging. Echocardiogram reveals EF 60- 65% with no obvious regional all motion abnormalities. mild to moderate MR, mild TR and aortic valve sclerosis. Cardiology evaluated the patient. Additionally vascular surgery evaluated the pateint due to the symptomatic right ICA stenosis of 70% Patient underwent right transcarotid artery revascularization with stenting on 07/13/2024. She was monitored overnight in the intensive care unit. She has been continued on brilinta and high dose statin therapy. Most recent labs reveal sodium 133, BUN 23, creatinine 1.11. Patient denying any new neurological deficits. She is awake alert x 3. No shortness of breath or chest discomfort. She has been cleared by vascular consultation. She will be discharged home. Please see medication reconciliation for a list of current medications. Thank you for allowing us to participate in the care of this patient. The impression and plan of care has been dictated by Jaelyn Guillen, Nurse Practitioner as directed. Dr. Steve MD I have performed a history and physical examination and medical decision making of this patient, discussed the same with the dictator, and agree with the dictators assessment and plan as written, documented as a scribe. Based on total visit time, I have performed more than 50% of this visit. Patient Condition at Discharge: Fair Plan - Discharge Summary Discharge Rx Participant: Yes New Discharge Prescriptions: New Ticagrelor [Brilinta] 90 mg PO BID #60 tab Continue amLODIPine [Norvasc] 5 mg PO DAILY carvediloL [Coreg] 12.5 mg PO BID Montelukast [Singulair] 10 mg PO HS Atorvastatin Calcium [Lipitor] 40 mg PO HS Discontinued Clopidogrel Bisulfate [Clopidogrel] 75 mg PO DAILY Discharge Medication List Montelukast [Singulair] 10 mg PO HS 04/06/24 [History] amLODIPine [Norvasc] 5 mg PO DAILY 04/06/24 [History] carvediloL [Coreg] 12.5 mg PO BID 04/06/24 [History] Atorvastatin Calcium [Lipitor] 40 mg PO HS 07/08/24 [History] Ticagrelor [Brilinta] 90 mg PO BID #60 tab 07/14/24 [Rx] Follow up Appointment(s)/Referral(s): [facility], [NON-STAFF] - Champ Fong MD [Primary Care Provider] - 1-2 days Bruna Dixon DO [STAFF PHYSICIAN] - 2 Weeks (Vascular surgery follow-up with Dr. Del Valle) Stephanie Silva MD [REFERRING] - 1 Week Ambulatory/Diagnostic Orders: Basic Metabolic Panel [LAB.AMB] Time Frame: 3 Days, Location: None Selected Patient Instructions/Handouts: Ticagrelor (By mouth), Ischemic Stroke (DC), Carotid Artery Stent Placement (DC) Activity/Diet/Wound Care/Special Instructions: No strenuous activity or heavy lifting greater than 10 pounds. May shower tomorrow but no tub bathing or soaking. No driving for 2 weeks. Watch incision site for infection including redness, drainage, or temperature greater than 100.4. If you notice he symptoms please call office Discontinue Plavix. Will now be on Brilinta 90 mg twice daily Discharge/Stand Alone Forms: Who Do I Call? Discharge Disposition: HOME SELF-CARE
== END 2024-07-14 18:16 | disposition home health service (06) | DRG 35 ==
LOC: EC 22:44 → 2SICU 07-08 00:24 → 3SCARD 07-09 17:00 → 2SICU 07-13 14:24
PROVIDERS: ADMIT Internal Medicine; ATTEND Internal Medicine
PROC: 3E03317 Introduction of Other Thrombolytic into Peripheral Vein, Percutaneous Approach (ICD-10-PCS; 2024-07-07)
PROC: 037H3DZ Dilation of Right Common Carotid Artery with Intraluminal Device, Percutaneous Approach (ICD-10-PCS; principal; 2024-07-13 09:50)
PROC: X2AH336 Cerebral Embolic Filtration, Extracorporeal Flow Reversal Circuit from Right Common Carotid Artery, Percutaneous Approach, New Technology Group 6 (ICD-10-PCS; principal; 2024-07-13 09:50)
DX: I63.231 Cerebral infarction due to unspecified occlusion or stenosis of right carotid arteries (principal); Z00.6 Encounter for examination for normal comparison and control in clinical research program; G81.94 Hemiplegia, unspecified affecting left nondominant side; N18.30 Chronic kidney disease, stage 3 unspecified; G93.89 Other specified disorders of brain; E66.9 Obesity, unspecified; I12.9 Hypertensive chronic kidney disease with stage 1 through stage 4 chronic kidney disease, or unspecified chronic kidney disease; E04.1 Nontoxic single thyroid nodule; I08.3 Combined rheumatic disorders of mitral, aortic and tricuspid valves; Z68.32 Body mass index [BMI] 32.0-32.9, adult; E78.5 Hyperlipidemia, unspecified; R29.709 NIHSS score 9; R47.1 Dysarthria and anarthria; R47.01 Aphasia; W08.XXXA Fall from other furniture, initial encounter; Z79.02 Long term (current) use of antithrombotics/antiplatelets; Z79.899 Other long term (current) drug therapy; Z86.73 Personal history of transient ischemic attack (TIA), and cerebral infarction without residual deficits; Z88.6 Allergy status to analgesic agent; Z88.0 Allergy status to penicillin; Z88.8 Allergy status to other drugs, medicaments and biological substances; Z88.5 Allergy status to narcotic agent
CPT/HCPCS: 36415; 37195; 37215; 70450; 70496; 70498; 70551; 71045; 76937; 80048; 80053; 80061; 82550; 83036; 83735; 84484; 85025; 85027; 85610; 85730; 86850; 86900; 86901; 93005; 93306; 96374; 96375; 99291

== ENCOUNTER 2024-07-15 07:16 | Inpatient (IN) | payer MEDICARE, OTHER ==
[2024-07-15 08:04] LABS: Basophils % (A) 0 %; Eosinophils # (A) 0.1 k/uL (0-0.7); Eosinophils % (A) 1 %; HCT 39.3 % (34.0-46.0); HGB 12.3 gm/dL (11.4-16.0); Lymphocytes # (A) 0.8 k/uL (1.0-4.8); Lymphocytes % (A) 10 %; MCH 30.4 pg (25.0-35.0); MCHC 31.3 g/dL (31.0-37.0); Mean Platelet Volume 7.4; Monocytes # (A) 0.7 k/uL (0-1.0); Monocytes % (A) 8 %; Neutrophils # (A) 6.5 k/uL (1.3-7.7); Neutrophils % (A) 80 %; Platelet Count 155 k/uL (150-450); RBC 4.05 m/uL (3.80-5.40); RDW 13.6 % (11.5-15.5); WBC 8.1 k/uL (3.8-10.6)
[2024-07-15] MEDS: methylPREDNISolone SOD SUCCI 125 MG/2 ML VIAL IV STA (08:08)
[2024-07-15] MEDS: diphenhydrAMINE 50 MG/ML 1 ML VIAL IVP STA (08:09)
[2024-07-15] MEDS: FAMOTIDINE 20 MG/2 ML VIAL IV STA (08:09)
[2024-07-15 08:18] LABS: Appearance,Urine Clear (Clear); Bilirubin,Urine Negative (Negative); Blood,Urine Negative (Negative); Color,Urine Colorless; Glucose,Urine (UA) Negative (Negative); Ketones,Urine Negative (Negative); Leukocyte Esterase,Urine Negative (Negative); Nitrite,Urine Negative (Negative); Protein,Urine Negative (Negative); Specific Gravity,Urine 1.003 (1.001-1.035); Urobilinogen,Urine <2.0 mg/dL (<2.0)
[2024-07-15 08:20] LABS: ALT 22 U/L (4-34); AST 35 U/L (14-36); African American GFR (CKD) 48 (>60 ml/min/1.73 sqM); Albumin 3.7 g/dL (3.5-5.0); Alkaline Phosphatase 92 U/L (38-126); Anion Gap 12 mmol/L; Blood Urea Nitrogen 23 mg/dL (7-17); Carbon Dioxide 19 mmol/L (22-30); Chloride 108 mmol/L (98-107); Glucose 90 mg/dL (74-99); Magnesium 2.1 mg/dL (1.6-2.3); Non-African American GFR(CKD) 42 (>60 ml/min/1.73 sqM); Potassium 3.8 mmol/L (3.5-5.1); Sodium 139 mmol/L (137-145); Total Bilirubin 1.4 mg/dL (0.2-1.3); Total Protein 6.8 g/dL (6.3-8.2)
[2024-07-15 08:23] LABS: Partial Thromboplastin Time 22.4 sec (22.0-30.0); Prothrombin Time 10.7 sec (10.0-12.5)
--- NOTE | 2024-07-15 08:41 | CT ---
EXAMINATION TYPE: CT brain wo con DATE OF EXAM: 07/15/2024 8:32 AM COMPARISON: 07/08/2024. CLINICAL INDICATION: Female, 74 years old with history of Left leg weakness, recent CVA, LEFT LEG WEA KNESS TECHNIQUE: Brain: Axial CT images of the brain were obtained with coronal and sagittal reformats created and rev iewed. Contrast used: None. Oral contrast used: None. CT DLP: 1085 mGycm, Automated exposure control for dose reduction was used. FINDINGS: Brain: Extra-axial spaces: No abnormal extra-axial fluid collections. Ventricular system: Within normal limits Cerebral parenchyma: Encephalomalacia of the right frontal lobe and right parietal lobe similar prior . New area of Donovan-white matter differentiation loss on series 2032 image 40 and on coronal imaging ser ies 20 is 33 image 33. No acute intraparenchymal hemorrhage or mass effect. The remainder of the donovan-white junctions are w ell differentiated. Cerebellum: Unremarkable. Mass effect: No evidence of midline shift. Intracranial vasculature: unremarkable Soft tissues: Normal. Calvarium/osseous structures: No depressed skull fracture. Paranasal sinuses and mastoid air cells: Mild scattered paranasal sinus disease. Visualized orbits: Orbital contents are intact. IMPRESSION: New area of acute/subacute CVA involving the right posterior frontal lobe which would correlate with area of weakness in the left leg. Findings communicated to LOPEZ Mosquera on 07/15/2024 8:[address] Johann Deras. [facility], , 07/15/2024 8:39 AM
--- NOTE | 2024-07-15 08:47 | ED ---
Weakness HPI - General Chief complaint: Weakness Stated complaint: Weakness Time Seen by Provider: 07/15/24 07:19 Source: patient, RN notes reviewed Mode of arrival: EMS Limitations: no limitations - History of Present Illness Initial comments: This is a 74-year-old female who presents to the emergency department for a fall and weakness. Patient was discharged yesterday after being admitted for a CVA. She presented here on 07/08/2024 with left-sided weakness and received TNK in the emergency department. She underwent an MRI of the brain the next day revealing an acute/subacute CVA involving the right basal ganglia and within the cortex within the right frontal lobe. She was also diagnosed with ICA stenosis and underwent a right transcarotid artery revascularization on 07/13. She was started on Brilinta when she was discharged as well. States that she had gotten up to use the bathroom early this morning and her right leg started hurting. It then gave out on her and she fell on the ground. She was unable to get up due to the pain and weakness in her leg, prompting family to call EMS. Patient states that she continues to have right leg pain. Also feels like she was probably discharged from the hospital too soon. Family states that they are unable to care for her at home as well and believe that she likely needs to go to rehab. - Related Data Home Medications Medication Instructions Recorded Confirmed Montelukast [Singulair] 10 mg PO HS 04/06/24 07/15/24 amLODIPine [Norvasc] 5 mg PO DAILY 04/06/24 07/15/24 carvediloL [Coreg] 12.5 mg PO BID 04/06/24 07/15/24 Atorvastatin Calcium [Lipitor] 40 mg PO HS 07/08/24 07/15/24 Previous Rx's Medication Instructions Recorded Ticagrelor [Brilinta] 90 mg PO BID #60 tab 07/14/24 Allergies Allergy/AdvReac Type Severity Reaction Status Date / Time acetaminophen Allergy Anaphylaxis Verified 07/15/24 09:57 [From Tylenol-Codeine #3] aspirin Allergy Rash/Hives Verified 07/15/24 09:57 codeine Allergy Anaphylaxis Verified 07/15/24 09:57 iodine Allergy Rash/Hives Verified 07/15/24 09:57 Penicillins Allergy Anaphylaxis Verified 07/15/24 09:57 Review of Systems ROS Statement: Those systems with pertinent positive or pertinent negative responses have been documented in the HPI. ROS Other: All systems not noted in ROS Statement are negative. Past Medical History Past Medical History: Coronary Artery Disease (CAD), CVA/TIA, Hyperlipidemia, Hypertension Additional Past Medical History / Comment(s): TIA 02/2024 History of Any Multi-Drug Resistant Organisms: None Reported Past Surgical History: Adenoidectomy, Section, Tonsillectomy Additional Past Surgical History / Comment(s): caotid artery stent Past Anesthesia/Blood Transfusion Reactions: No Reported Reaction Past Psychological History: No Psychological Hx Reported Smoking Status: Never smoker Past Alcohol Use History: None Reported Past Drug Use History: None Reported - Past Family History Father Family Medical History: Cancer, Renal Disease Additional Family Medical History / Comment(s): kidney cancer, 1 kidney removed. Mother Family Medical History: Congestive Heart Failure (CHF), Coronary Artery Disease (CAD), Dementia General Exam Limitations: no limitations General appearance: alert, in no apparent distress Head exam: Present: atraumatic, normocephalic, normal inspection Respiratory exam: Present: normal lung sounds bilaterally. Absent: respiratory distress, wheezes, rales, rhonchi, stridor Cardiovascular Exam: Present: regular rate, normal rhythm, normal heart sounds. Absent: systolic murmur, diastolic murmur, rubs, gallop, clicks Extremities exam: Present: other (Tenderness to palpation over the right thigh. No swelling, erythema, or warmth. Range of motion limited by pain. 2+ DP and PT pulses bilaterally) Neurological exam: Present: alert, oriented X3, CN II-XII intact Psychiatric exam: Present: normal affect, normal mood Skin exam: Present: warm, dry, intact, normal color. Absent: rash Course Vital Signs 07/15/24 07/15/24 07/15/24 07:22 07:23 08:00 Temperature 97.8 F Pulse Rate 82 81 Respiratory 16 18 Rate Blood Pressure 126/80 134/74 O2 Sat by Pulse 100 99 Oximetry 07/15/24 07/15/24 07/15/24 08:06 09:00 10:00 Temperature Pulse Rate 80 82 81 Respiratory 20 13 20 Rate Blood Pressure 144/69 144/69 148/85 O2 Sat by Pulse 97 98 Oximetry 07/15/24 07/15/24 11:00 12:00 Temperature Pulse Rate 80 96 Respiratory 15 18 Rate Blood Pressure 135/57 128/52 O2 Sat by Pulse Oximetry Medical Decision Making - Medical Decision Making This is a 74 year old female who presents to the emergency department for a fall and weakness. Was pt. sent in by a medical professional or institution? @ -No Did you speak to anyone other than the patient for history? @ -No Did you review nursing and triage notes? @ -Yes, and I agree, it is accurate with regards to the patient's symptoms. Were old charts reviewed? @ -MRI of the brain from 07/09/2024 demonstrating an acute/subacute CVA involving the right basal ganglia and within the cortex within the right frontal lobe. Differential Diagnosis? @ -Differential Weakness: Hypoglycemia, shock, sepsis, hyponatremia, anemia, infection, CT, ETOH, adverse medicine reaction, overdose, stroke, this is not meant to be an all-inclusive list. EKG interpreted by me (3pts min.)? @ -EKG interpreted by me demonstrating the following: Sinus rhythm. Ventricular rate 76 bpm, CA interval 241 ms, QRS duration 91 ms, QTc 405 ms. X-rays interpreted by me (1pt min.)? @ -Chest x-ray obtained, my interpretation identifies no localized consolidations or infiltrates. X-ray of the right hip/AP pelvis and right femur obtained. My interpretation identifies no acute fractures. CT interpreted by me (1pt min.)? @ -CT scan of the brain and CTA of the head and neck obtained. My interpretation identifies ischemic changes to the right posterior frontal lobe. U/S interpreted by me (1pt. min.)? @ -Not obtained What testing was considered but not performed? (CT, X-rays, U/S, labs)? Why? @ -None What meds were considered but not given? Why? @ -None Did you discuss the management of the patient with other professionals? @ -Yes, Dr. Kay, who accepts the patient for admission Did you reconcile home meds? @ -No Was smoking cessation discussed for >3mins.? @ -No Was critical care preformed (if so, how long)? @ -No Were there social determinants of health that impacted care today? How? (Homelessness, low income, unemployed, alcoholism, drug addiction, transportation, low edu. Level, literacy, decrease access to med. care, usp, rehab)? @ -No Was there de-escalation of care discussed even if they declined? (Discuss DNR or withdrawal of care, Hospice)? @ -No What co-morbidities impacted this encounter? (DM, HTN, Smoking, COPD, CAD, Cancer, CVA, Hep., AIDS, mental health diagnosis, sleep apnea, morbid obesity)? @ -CVA, HLD, HTN Was patient admitted / discharged? @ -Admitted. Lab work demonstrates signs of mild dehydration and is otherwise unremarkable. Urinalysis negative for signs of infection. Patient was complaining of right leg pain that caused her to fall. Believes that she had some weakness in association with the pain. Given the recent stroke, we did get a CT scan of the brain and CTA of the head and neck. She was found to have a new area of acute/subacute CVA involving the right posterior frontal lobe, suggesting that the infarct may be evolving. The right carotid stent appears patent. Findings reviewed with the family. They were concerned about her being discharged home and believe that she does likely need rehab given her ongoing weakness and their inability to care for her. Given the evolving CVA with progressive weakness, patient was admitted to medicine for further management. Consult placed for neurology. Case management consulted as well regarding the need for rehab. PT/OT consulted regarding her weakness. Case discussed with ED attending Dr. Faria. Undiagnosed new problem with uncertain prognosis? @ -None Drug Therapy requiring intensive monitoring for toxicity (Heparin, Nitro, Insulin, Cardizem)? @ -None Were any procedures done? @ -None Diagnosis/symptom? @ -CVA, weakness Acute, or Chronic, or Acute on Chronic? @ -Acute Uncomplicated (without systemic symptoms) or Complicated (systemic symptoms)? @ -Complicated Side effects of treatment? @ -None Exacerbation, Progression, or Severe Exacerbation] @ -Progression Poses a threat to life or bodily function? @ -Yes, patient unable to function - Lab Data Result diagrams: 07/15/24 07:58 07/15/24 07:58 Lab Results 07/15/24 07/15/24 07/15/24 Range/Units 07:36 07:36 07:58 WBC 8.1 (3.8-10.6) k/uL RBC 4.05 (3.80-5.40) m/uL Hgb 12.3 (11.4-16.0) gm/dL Hct 39.3 (34.0-46.0) % MCV 97.0 (80.0-100.0) fL MCH 30.4 (25.0-35.0) pg MCHC 31.3 (31.0-37.0) g/dL RDW 13.6 (11.5-15.5) % Plt Count 155 (150-450) k/uL MPV 7.4 Neutrophils % 80 % Lymphocytes % 10 % Monocytes % 8 % Eosinophils % 1 % Basophils % 0 % Neutrophils # 6.5 (1.3-7.7) k/uL Lymphocytes # 0.8 L (1.0-4.8) k/uL Monocytes # 0.7 (0-1.0) k/uL Eosinophils # 0.1 (0-0.7) k/uL Basophils # 0.0 (0-0.2) k/uL PT (10.0-12.5) sec INR (<1.2) APTT (22.0-30.0) sec Sodium (137-145) mmol/L Potassium (3.5-5.1) mmol/L Chloride (98-107) mmol/L Carbon Dioxide (22-30) mmol/L Anion Gap mmol/L BUN (7-17) mg/dL Creatinine (0.52-1.04) mg/dL Est GFR (CKD-EPI)AfAm (>60 ml/min/1.73 sqM) Est GFR (CKD-EPI)NonAf (>60 ml/min/1.73 sqM) Glucose (74-99) mg/dL Plasma Lactic Acid Benigno 2.0 (0.7-2.0) mmol/L Calcium (8.4-10.2) mg/dL Magnesium (1.6-2.3) mg/dL Total Bilirubin (0.2-1.3) mg/dL AST (14-36) U/L ALT (4-34) U/L Alkaline Phosphatase (38-126) U/L Total Protein (6.3-8.2) g/dL Albumin (3.5-5.0) g/dL Urine Color Colorless Urine Appearance Clear (Clear) Urine pH 5.0 (5.0-8.0) Ur Specific [place] 1.003 (1.001-1.035) Urine Protein Negative (Negative) Urine Glucose (UA) Negative (Negative) Urine Ketones Negative (Negative) Urine Blood Negative (Negative) Urine Nitrite Negative (Negative) Urine Bilirubin Negative (Negative) Urine Urobilinogen <2.0 (<2.0) mg/dL Ur Leukocyte Esterase Negative (Negative) 07/15/24 07/15/24 Range/Units 07:58 07:58 WBC (3.8-10.6) k/uL RBC (3.80-5.40) m/uL Hgb (11.4-16.0) gm/dL Hct (34.0-46.0) % MCV (80.0-100.0) fL MCH (25.0-35.0) pg MCHC (31.0-37.0) g/dL RDW (11.5-15.5) % Plt Count (150-450) k/uL MPV Neutrophils % % Lymphocytes % % Monocytes % % Eosinophils % % Basophils % % Neutrophils # (1.3-7.7) k/uL Lymphocytes # (1.0-4.8) k/uL Monocytes # (0-1.0) k/uL Eosinophils # (0-0.7) k/uL Basophils # (0-0.2) k/uL PT 10.7 (10.0-12.5) sec INR 1.0 (<1.2) APTT 22.4 (22.0-30.0) sec Sodium 139 (137-145) mmol/L Potassium 3.8 (3.5-5.1) mmol/L Chloride 108 H (98-107) mmol/L Carbon Dioxide 19 L (22-30) mmol/L Anion Gap 12 mmol/L BUN 23 H (7-17) mg/dL Creatinine 1.29 H (0.52-1.04) mg/dL Est GFR (CKD-EPI)AfAm 48 (>60 ml/min/1.73 sqM) Est GFR (CKD-EPI)NonAf 42 (>60 ml/min/1.73 sqM) Glucose 90 (74-99) mg/dL Plasma Lactic Acid Benigno (0.7-2.0) mmol/L Calcium 9.0 (8.4-10.2) mg/dL Magnesium 2.1 (1.6-2.3) mg/dL Total Bilirubin 1.4 H (0.2-1.3) mg/dL AST 35 (14-36) U/L ALT 22 (4-34) U/L Alkaline Phosphatase 92 (38-126) U/L Total Protein 6.8 (6.3-8.2) g/dL Albumin 3.7 (3.5-5.0) g/dL Urine Color Urine Appearance (Clear) Urine pH (5.0-8.0) Ur Specific [place] (1.001-1.035) Urine Protein (Negative) Urine Glucose (UA) (Negative) Urine Ketones (Negative) Urine Blood (Negative) Urine Nitrite (Negative) Urine Bilirubin (Negative) Urine Urobilinogen (<2.0) mg/dL Ur Leukocyte Esterase (Negative) - Radiology Data Radiology results: report reviewed, image reviewed Disposition Clinical Impression: CVA (cerebral vascular accident), Weakness Disposition: ADMITTED IP TO THIS HOSP
[2024-07-15] MEDS ORDERED: ONDANSETRON 4 MG/2 ML VIAL IVP PRN (08:56)
[2024-07-15] MEDS ORDERED: NALOXONE 0.4 MG/ML 1 ML VIAL IV PRN (08:56)
--- NOTE | 2024-07-15 08:57 | CT ---
EXAMINATION TYPE: CT angio head neck DATE OF EXAM: 07/15/2024 8:41 AM COMPARISON: Thyroid ultrasound, CT 07/16/2019 07/07/2024 CLINICAL INDICATION: Female, 74 years old with history of Left leg weakness, recent CVA; PHH, LEFT LE G WEAKNESS TECHNIQUE: Axially acquired helical CT angiogram of the head and neck was obtained with contrast. Axi al images are supplemented with 3D reconstructions and MIP images which were post-processed at an in dependent workstation. NASCET criteria used. Contrast used:100 mL of Isovue 300 with IV Contrast, Oral contrast used: None. CT DLP: 356.5 mGycm, Automated exposure control for dose reduction was used. FINDINGS: CTA HEAD: No evidence of acute intracranial hemorrhage, mass effect, or midline shift. The ventricles, sulci, a nd cisterns are unremarkable. Vertebral arteries: The vertebral arteries are patent. Vertebral artery dominance: Codominant, intracranial vascular calcifications present. Basilar artery: The basilar artery is intact. The basilar artery bifurcation is normal. Internal Carotid arteries: Intracranial atherosclerosis without high-grade stenosis. The cervical, pe trous, cavernous and supraclinoid segments are normal. AMADEO: Patent with no evidence of aneurysm. ACOM: Present without evidence of aneurysm. MCA: Patent with no evidence of aneurysm. READINESS PARAPROFESSIONAL: Patent with no evidence of aneurysm. PCOM: Hypoplastic bilaterally. Dural sinuses: Patent. CTA NECK: Right Carotid System: The common carotid artery and external carotid artery are patent. Right common carotid and internal c arotid artery stent appears patent. The carotid bifurcation demonstrates no evidence of hemodynamical ly significant stenosis. The remaining portions of the internal carotid artery demonstrate normal siz e without significant narrowing. Left Carotid System: The common carotid artery and external carotid artery are patent. The carotid bifurcation demonstrate s no evidence of hemodynamically significant stenosis. The remaining portions of the internal carotid artery demonstrate normal size without significant narrowing. Vertebral arteries are patent without evidence hemodynamically significant stenosis. There is a three-vessel aortic arch. The origins of the great vessels are patent. No evidence of hemo dynamically significant stenosis. Right thyroid nodule measuring 20 mm. IMPRESSION: 1. No evidence of dissection of the cervical internal carotid arteries or vertebral arteries. 2. No any evidence of significant stenosis at the carotid bifurcations. 3. Right carotid system stent grafts appear patent. 4. No evidence of intracranial high-grade stenosis or intracranial aneurysm. 5. Right thyroid 20 mm nodule as seen on prior ultrasounds. [facility], , 07/15/2024 8:54 AM
--- NOTE | 2024-07-15 09:16 | XR ---
EXAMINATION TYPE: XR femur RT DATE OF EXAM: 07/15/2024 8:57 AM COMPARISON: None CLINICAL INDICATION: Female, 74 years old with history of Pain, fall; PHH, pain TECHNIQUE: XR femur RT examined in Frontal and lateral projections. FINDINGS: No evidence of acute osseous pathology, joint dislocation, or soft tissue swelling. Osteop hyte formations of the superior acetabulum. Mild joint space narrowing. Atherosclerosis of the arteri al vasculature. IMPRESSION: 1. No acute osseous pathology. 2. Moderate right knee and right hip osteoporosis. [facility], , 07/15/2024 9:13 AM
--- NOTE | 2024-07-15 09:17 | XR ---
EXAMINATION TYPE: XR Hip RT and AP Pelvis DATE OF EXAM: 07/15/2024 8:57 AM COMPARISON: Same day CLINICAL INDICATION: Female, 74 years old with history of Pain, fall; PHH, pain TECHNIQUE: XR Hip RT and AP Pelvis; hip was examined in the frontal and lateral projections and a AP pelvis. FINDINGS: No evidence for acute process, joint dislocation or significant soft tissue swelling. Osteo phyte formation of the superior acetabulum of the hips. There is mild joint space narrowing. Degenera tion changes of the spine. IMPRESSION: 1. No evidence for acute process. 2. Moderate hip osteoarthrosis. [facility], , 07/15/2024 9:14 AM
--- NOTE | 2024-07-15 09:17 | XR ---
EXAMINATION TYPE: XR chest 2V DATE OF EXAM: 07/15/2024 8:57 AM COMPARISON: Chest radiographs from 07/07/2024 CLINICAL INDICATION: Female, 74 years old with history of Weakness; [facility] TECHNIQUE: XR chest 2V Frontal and lateral views of the chest. FINDINGS: Lungs/Pleura: There is no evidence of pleural effusion, focal consolidation, or pneumothorax. Pulmonary vascularity: Unremarkable. Heart/mediastinum: Cardiomediastinal silhouette is prominent in size. Musculoskeletal: No acute osseous pathology. IMPRESSION: No acute cardiopulmonary disease/process. [facility], , 07/15/2024 9:15 AM
[2024-07-15] MEDS: PANTOPRAZOLE 40 MG/10 ML VIAL IV SCH (09:24)
[2024-07-15] MEDS: carvediloL 12.5 MG TAB PO SCH (12:12)
[2024-07-15] MEDS: TICAGRELOR 90 MG TAB PO SCH (12:12)
[2024-07-15] MEDS: amLODIPine 5 MG TAB PO SCH (12:12)
--- NOTE | 2024-07-15 15:16 | P.HPIM ---
History of Present Illness H&P Date: 07/15/24 History of present illness: This is a 74-year-old female with past medical history significant for hy pertension, hyperlipidemia, pancreatic lesion, chronic kidney disease who was recently admitted to the hospital for acute CVA, presented on 07/08/2024 with left-sided weakness and received TNK, later on had MRI of the brain which showed acute/subacute CVA involving the right basal ganglia and within the cortex within the right frontal lobe. Patient was also diagnosed with ICA stenosis and underwent a right transcarotid artery revascularization on 07/13. Patient was started on Brilinta and was discharged home on 07/14/2024. Family and patient reported that she was very weak and reported that when she got up to use the bathroom earlier today, her right leg started to hurt and gave out and she fell on the ground. Patient was unable to get up due to pain and weakness. Patient was brought to the ER for further evaluation and management. Patient is afebrile, heart rate 79, respiratory rate 19, blood pressure 146/97, saturating more than 90% on room air. CBC unremarkable. BMP showed BUN 23, creatinine 1.29 from baseline. UA was unremarkable. CT head: New area of acute/subacute CVA involving the right posterior frontal lobe which would correlate with area of weakness in the left leg. CT angio head and neck showed no dissection, no evidence of significant stenosis, right carotid stent patent, showed right thyroid 20 mm nodule. Right femur x-ray was negative for any acute process, showed osteoporosis. Right hip x-ray also negative for any acute process. Chest x-ray negative for acute process. Assessment and plan: Generalized weakness: Fall: Recent acute CVA requiring TNK: Carotid artery disease status post with recent right carotid stent 07/13: Hypertension Hyperlipidemia CKD: Pancreatic lesion: Following outpatient Thyroid nodule: Next outpatient follow-up Plan: Recently discharged from the hospital was admitted for acute CVA requiring TNK, requiring right carotid artery stent, now presented with generalized weakness and fall. Fall precaution-PT/OT consult Resume home medsBrilinta, statin, Norvasc, Coreg. Neurochecks Monitor renal function Neurology consult. DVT prophylaxis Subcutaneous heparin Monitor vital signs and labs Labs and medication were reviewed. Continue same treatment. Further recommendations as per clinical course of the patient PHYSICAL EXAMINATION: GENERAL: The patient is A&O x3, NAD HEENT: EOMI, Sclerae anicteric, Moist Mucous membranes Neck: Supple, Non tender, No JVD PULMONARY: Equal breath souds B/L, No wheezing, No crackles. CARDIOVASCULAR: S1, S2 present. No murmurs, rubs, or gallops. ABDOMEN: Soft, nontender, nondistended, normoactive bowel sounds. No guarding or rebound tenderness. MUSCULOSKELETAL: No edema, No cyanosis. No clubbing. Normal ROM. Intact peripheral pulses. NEUROLOGICAL: CN 2-12 grossly intact. No FND REVIEW OF SYSTEMS: CONSTITUTIONAL: No fever, no malaise, no fatigue. HEENT: No recent visual problems or hearing problems. Denied any sore throat. CARDIOVASCULAR: No chest pain, orthopnea, PND, no palpitations, no syncope. PULMONARY: No shortness of breath, no cough, no hemoptysis. GASTROINTESTINAL: No diarrhea, no nausea, no vomiting, no abdominal pain. NEUROLOGICAL: No headaches, no weakness, no numbness. HEMATOLOGICAL: Denies any bleeding or petechiae. GENITOURINARY: Denies any burning micturition, frequency, or urgency. MUSCULOSKELETAL/RHEUMATOLOGICAL: Denies any joint pain, swelling, or any muscle pain. ENDOCRINE: Denies any polyuria or polydipsia. The rest of the 14-point review of systems is negative. Dictation was produced using [employer] dictation software. please excuse any grammatical, word or spelling errors. Past Medical History Past Medical History: Coronary Artery Disease (CAD), CVA/TIA, Hyperlipidemia, Hypertension Additional Past Medical History / Comment(s): TIA 02/2024 History of Any Multi-Drug Resistant Organisms: None Reported Past Surgical History: Adenoidectomy, Section, Tonsillectomy Additional Past Surgical History / Comment(s): caotid artery stent Past Anesthesia/Blood Transfusion Reactions: No Reported Reaction Past Psychological History: No Psychological Hx Reported Smoking Status: Never smoker Past Alcohol Use History: None Reported Past Drug Use History: None Reported - Past Family History Father Family Medical History: Cancer, Renal Disease Additional Family Medical History / Comment(s): kidney cancer, 1 kidney removed. Mother Family Medical History: Congestive Heart Failure (CHF), Coronary Artery Disease (CAD), Dementia Medications and Allergies Home Medications Medication Instructions Recorded Confirmed Type Montelukast [Singulair] 10 mg PO HS 04/06/24 07/15/24 History amLODIPine [Norvasc] 5 mg PO DAILY 04/06/24 07/15/24 History carvediloL [Coreg] 12.5 mg PO BID 04/06/24 07/15/24 History Atorvastatin Calcium [Lipitor] 40 mg PO HS 07/08/24 07/15/24 History Ticagrelor [Brilinta] 90 mg PO BID #60 tab 07/14/24 07/15/24 Rx Allergies Allergy/AdvReac Type Severity Reaction Status Date / Time acetaminophen Allergy Anaphylaxis Verified 07/15/24 09:57 [From Tylenol-Codeine #3] aspirin Allergy Rash/Hives Verified 07/15/24 09:57 codeine Allergy Anaphylaxis Verified 07/15/24 09:57 iodine Allergy Rash/Hives Verified 07/15/24 09:57 Penicillins Allergy Anaphylaxis Verified 07/15/24 09:57 Physical Exam Vitals: Vital Signs Temp Pulse Resp BP Pulse Ox 07/15/24 13:00 79 19 146/97 07/15/24 12:00 96 18 128/52 07/15/24 11:00 80 15 135/57 07/15/24 10:00 81 20 148/85 07/15/24 09:00 82 13 144/69 98 07/15/24 08:06 80 20 144/69 97 07/15/24 08:00 81 18 134/74 07/15/24 07:23 99 07/15/24 07:22 97.8 F 82 16 126/80 100 Intake and Output 07/15/24 07/15/24 07/15/24 06:59 14:59 22:59 Other: Weight 72.121 kg Results CBC & Chem 7: 07/15/24 07:58 07/15/24 07:58 Labs: Abnormal Lab Results - Last 24 Hours (Table) 07/15/24 07/15/24 Range/Units 07:58 07:58 Lymphocytes # 0.8 L (1.0-4.8) k/uL Chloride 108 H (98-107) mmol/L Carbon Dioxide 19 L (22-30) mmol/L BUN 23 H (7-17) mg/dL Creatinine 1.29 H (0.52-1.04) mg/dL Total Bilirubin 1.4 H (0.2-1.3) mg/dL
[2024-07-15] MEDS: ACETAMINOPHEN TAB 325 MG TAB PO PRN (16:42)
[2024-07-15] MEDS: ATORVASTATIN 40 MG TAB PO SCH (21:39)
[2024-07-15] MEDS: MONTELUKAST 10 MG TAB PO SCH (21:40)
[2024-07-15] MEDS: HEPARIN SODIUM,PORCINE 5,000 UNIT/ML 1 ML VIAL SQ SCH (21:40)
--- NOTE | 2024-07-16 08:49 | P.CNNES ---
History of Present Illness Consult date: 07/15/24 Requesting physician: Vidhya Gtz Reason for Consult: Evolving stroke History of Present Illness: Patient is a 74-year-old right-handed female, who was recently admitted to the hospital for an acute stroke with left-sided weakness, was found to have symptomatic right ICA stenosis. Patient underwent right transcranial artery revascularization with stenting performed on 07/13/2024. She was doing very wel l, discharged home yesterday. Patient states she went home, rested on the couch. She went to bed early. Had to get up and has to use nuha potty. Patient states that her foot slipped on the carpet and she went down on the right leg. She believes it was a slip and fall, as she was barefoot, and it is a smooth texture on the carpet. However she believes her leg was weak. They called the ambulance and patient arrived to the hospital by ambulance today at 7:16 AM. Patient denies any new onset visual disturbance, any facial droop, slurred speech or any focal weakness. She says she does get tires easily. Denies any headache no dizziness. Patient believes her left shoulder is weak since a previous TIA on 02/24/2024 but believes is slightly weaker since last night, but that also has a bruise from the fall. As per EMS flowsheet, when EMS arrived patient was laying in the bed. Patient was awake, alert oriented x 4 with GCS of 15. Patient mentioned that she was discharged yesterday from [facility] following a week stay during which she had stent placed in her right carotid artery for TIA. Patient mentioned that she was getting up to use the bedside commode when she slipped down to floor due to weakness in the legs. Patient denied any pain or discomfort, no loss of consciousness. Patient's vitals at the scene was blood pressure 155/87, pulse rate 86 respiration 18 saturation 100%. Vital signs on arrival blood pressure 126/80, patient is afebrile. Blood test shows normal CBC, PT PTT, normal electrolytes, BUN 23 creatinine 1.29. Hepatic panel is normal UA negative. CT head showed new area of acute/subacute CVA involving the right posterior frontal lobe which could correlate with area of weakness in the left leg. I personally reviewed CT head and agree with the findings. EKG showed sinus rhythm with first-degree AV block. Femur x-ray showed no acute osseous pathology. Moderate right knee and right hip osteoporosis. Hip and pelvic x-ray showed no evidence for acute process. Moderate hip osteoarthrosis. Chest x-ray showed no acute cardiopulmonary process. Review of Systems All pertinent positive and negative review of systems mentioned HPI. All other review of systems unremarkable. Past Medical History Past Medical History: Coronary Artery Disease (CAD), CVA/TIA, Hyperlipidemia, Hypertension Additional Past Medical History / Comment(s): TIA 02/2024 History of Any Multi-Drug Resistant Organisms: None Reported Past Surgical History: Adenoidectomy, Section, Tonsillectomy Additional Past Surgical History / Comment(s): caotid artery stent Past Anesthesia/Blood Transfusion Reactions: No Reported Reaction Past Psychological History: No Psychological Hx Reported Smoking Status: Never smoker Past Alcohol Use History: None Reported Past Drug Use History: None Reported - Past Family History Father Family Medical History: Cancer, Renal Disease Additional Family Medical History / Comment(s): kidney cancer, 1 kidney removed. Mother Family Medical History: Congestive Heart Failure (CHF), Coronary Artery Disease (CAD), Dementia Medications and Allergies Home Medications Medication Instructions Recorded Confirmed Type Montelukast [Singulair] 10 mg PO HS 04/06/24 07/15/24 History amLODIPine [Norvasc] 5 mg PO DAILY 04/06/24 07/15/24 History carvediloL [Coreg] 12.5 mg PO BID 04/06/24 07/15/24 History Atorvastatin Calcium [Lipitor] 40 mg PO HS 07/08/24 07/15/24 History Ticagrelor [Brilinta] 90 mg PO BID #60 tab 07/14/24 07/15/24 Rx Allergies Allergy/AdvReac Type Severity Reaction Status Date / Time acetaminophen Allergy Anaphylaxis Verified 07/15/24 09:57 [From Tylenol-Codeine #3] aspirin Allergy Rash/Hives Verified 07/15/24 09:57 codeine Allergy Anaphylaxis Verified 07/15/24 09:57 iodine Allergy Rash/Hives Verified 07/15/24 09:57 Penicillins Allergy Anaphylaxis Verified 07/15/24 09:57 Physical Examination - Vital Signs Vital Signs: Vital Signs Temp Pulse Resp BP Pulse Ox 07/15/24 13:00 79 19 146/97 03/06/25 12:00 96 18 128/52 07/15/24 11:00 80 15 135/57 07/15/24 10:00 81 20 148/85 07/15/24 09:00 82 13 144/69 98 07/15/24 08:06 80 20 144/69 97 07/15/24 08:00 81 18 134/74 07/15/24 07:23 99 07/15/24 07:22 97.8 F 82 16 126/80 100 Intake and Output 07/14/24 07/15/24 07/15/24 22:59 06:59 14:59 Other: Weight 72.121 kg Patient is an elderly female, very pleasant, in no acute distress. Patient is alert awake oriented to time place and person. She knows it is July 2024 but believes it is either on the of the (actually the ). She knows it is , winter season. She knows that she is in [place] in [facility] in [facility] and name of the current president Mr. Sparks. Speech and language functions are normal. Patient can name and repeat very well. No aphasia or dysarthria. Attention, concentration and fund of knowledge is adequate. On cranial nerve examination, pupils are equal, round and reacting to light, visual harris are full on confrontation, with no neglect on double simultaneous stimulation. Extraocular muscles are intact with no nystagmus. Face is symmetric, tongue protrudes to the midline. Palatal elevation and sensation normal, hearing and shoulder shrug normal, facial sensation normal. On muscle strength testing, there is no pronator drift and the strength is normal in arms and legs distally and proximally, except left deltoid which is 5- 4+ with slight pain. She has a prominent bruise over the left anterior shoulder region from the fall. Patient states her left shoulder is weak since her previous "TIA" on 02/24/2024. Her hip flexion is about 4+ bilaterally. Ankle dorsiflexion, toe extension are normal. There is no leg drift noted on either side. Deep tendon reflexes are symmetric 1 at the biceps, 1 be daily list, 2 at the knees 1 ankles and plantars downgoing bilaterally. Sensory to touch is equal with no neglect on double simultaneous stimulation. Cerebellar function showed no ataxia for [id number] testing. No dysdiadochokinesia. No ataxia for [id number] testing on either side. Tone and bulk of muscles normal. Gait deferred.. On general examination, there is no carotid bruit or murmur, S1-S2 audible. Chest is clear on consultation. Abdomen is soft nontender. No organomegaly, bowel sounds present. Peripheral pulses are present. No peripheral edema. Results - Laboratory Findings CBC and BMP: 07/15/24 07:58 07/15/24 07:58 Abnormal Lab Findings: Abnormal Labs 07/15/24 07/15/24 07:58 07:58 Lymphocytes # 0.8 L Chloride 108 H Carbon Dioxide 19 L BUN 23 H Creatinine 1.29 H Total Bilirubin 1.4 H Assessment and Plan Assessment: * 74-year-old female, recently underwent right TCAR with stent placement on 07/13/2024, sent home yesterday in stable condition, tried to get up to use bedside commode, and states she slipped and fell. Patient's neurological examination is completely unchanged, with NIH stroke scale of 0. Her examination is unchanged from the one performed on 07/13/2024 prior to discharge. * History of prior stroke over the right frontal region. * History of TIA * Hypertension * Hyperlipidemia Plan: * Patient's neurological examination is completely stable. Her current NIH stroke scale is 0. * CT head was performed, which revealed new area of acute/subacute CVA involving the right posterior frontal lobe which could correlate with new of weakness in the left leg. However her examination is stable as mentioned above. On my review, appears either subacute, or related to partial averaging from a sulcus. * CTA head and neck 07/15/2024 revealed no evidence of dissection of the cervical internal carotid arteries or vertebral arteries. No evidence of significant stenosis at the carotid bifurcations. Right carotid system stent grafts appear patent. No evidence of intracranial high-grade stenosis or intracranial aneurysm. Right thyroid nodule. (Will defer to IM regarding thyroid nodule) * 2-D echo from 07/08/2024 showed LVEF 60-65%. No obvious regional wall motion abnormalities. Normal left atrial size. Negative agitated saline bubble study for [id number] shunt. Mild to moderate MR. No need to repeat echo. * Continue Brilinta 90 mg twice a day. Patient has previously failed Plavix. Patient is ALLERGIC to aspirin. * Hemoglobin A1c 5.6 * Lipid panel with cholesterol 169, LDL 78, HDL 78 and triglycerides 59. Contin ue Lipitor 40 mg daily. * PT OT. Consider transfer to rehab for therapy and restrengthening. * Neurologically clear. Thank you for the consult. Time with Patient: Greater than 30
--- NOTE | 2024-07-16 12:25 | P.PN ---
Subjective Progress Note Date: 07/16/24 Interval History: This is a 74-year-old female with past medical history significant for hypertension, hyperlipidemia, pancreatic lesion, chronic kidney disease who was recently admitted to the hospital for acute CVA, presented on 07/08/2024 with left-sided weakness and received TNK, later on had MRI of the brain which showed acute/subacute CVA involving the right basal ganglia and within the cortex withi n the right frontal lobe. Patient was also diagnosed with ICA stenosis and underwent a right transcarotid artery revascularization on 07/13. Patient was started on Brilinta and was discharged home on 07/14/2024. Family and patient reported that she was very weak and reported that when she got up to use the bathroom earlier today, her right leg started to hurt and gave out and she fell on the ground. Patient was unable to get up due to pain and weakness. Patient was brought to the ER for further evaluation and management. Patient is afebrile, heart rate 79, respiratory rate 19, blood pressure 146/97, saturating more than 90% on room air. CBC unremarkable. BMP showed BUN 23, creatinine 1.29 from baseline. UA was unremarkable. CT head: New area of acute/subacute CVA involving the right posterior frontal lobe which would correlate with area of weakness in the left leg. CT angio head and neck showed no dissection, no evidence of significant stenosis, right carotid stent patent, showed right thyroid 20 mm nodule. Right femur x-ray was negative for any acute process, showed osteoporosis. Right hip x-ray also negative for any acute process. Chest x-ray negative for acute process. 07/16--patient was seen and examined today. No issues overnight. Remained afebrile, heart rate 78, respiratory rate 20, blood pressure 136/72, saturating 98% on room air. Neurology evaluated the patient yesterday, recommended to continue home meds, okay to discharge to subacute rehab. Awaiting placement to subacute rehab, after PT/OT evaluation. Assessment and plan: Generalized weakness: Fall: Recent acute CVA requiring TNK: Carotid artery disease status post with recent right carotid stent 07/13: Hypertension Hyperlipidemia CKD: Pancreatic lesion: Following outpatient Thyroid nodule: Next outpatient follow-up Plan: Recently discharged from the hospital was admitted for acute CVA requiring TNK, requiring right carotid artery stent, now presented with generalized weakness and fall. Fall precaution-PT/OT consult Resume home medsBrilinta, statin, Norvasc, Coreg. Neurochecks Monitor renal function Neurology consulted--CT head showing either subacute, recommended subacute rehab. DVT prophylaxis Subcutaneous heparin Disposition: PT/OT consulted, anticipate subacute rehab. Monitor vital signs and labs Labs and medication were reviewed. Continue same treatment. Further recommendations as per clinical course of the patient PHYSICAL EXAMINATION: GENERAL: The patient is A&O x3, NAD HEENT: EOMI, Sclerae anicteric, Moist Mucous membranes Neck: Supple, Non tender, No JVD PULMONARY: Equal breath souds B/L, No wheezing, No crackles. CARDIOVASCULAR: S1, S2 present. No murmurs, rubs, or gallops. ABDOMEN: Soft, nontender, nondistended, normoactive bowel sounds. No guarding or rebound tenderness. MUSCULOSKELETAL: No edema, No cyanosis. No clubbing. Normal ROM. Intact peripheral pulses. NEUROLOGICAL: CN 2-12 grossly intact. No FND REVIEW OF SYSTEMS: CONSTITUTIONAL: No fever or chills. Complain of generalized weakness. CARDIOVASCULAR: No chest pain, palpitations or syncope. PULMONARY: No shortness of breath, no cough, sore throat. GASTROINTESTINAL: No nausea, vomiting, diarrhea, abdominal pain. : No Dysuria, urgency, frequency. Extremities: No edema. NEUROLOGICAL: No headaches, no weakness, or numbness Dictation was produced using [employer] dictation software. please excuse any grammatical, word or spelling errors. Objective - Vital Signs Vital signs: Vital Signs Temp 97.8 F 07/15/24 07:22 Pulse 78 07/16/24 11:00 Resp 20 07/16/24 11:00 BP 136/72 07/16/24 11:00 Pulse Ox 98 07/16/24 11:00 FiO2 Intake & Output 07/15/24 07/16/24 07/16/24 18:59 06:59 18:59 Weight 72.121 kg - Labs CBC & Chem 7: 07/15/24 07:58 07/15/24 07:58
[2024-07-17 07:22] LABS: Basophils % (A) 0 %; Eosinophils # (A) 0.1 k/uL (0-0.7); Eosinophils % (A) 2 %; HCT 38.9 % (34.0-46.0); Hypochromasia Slight; Lymphocytes # (A) 1.8 k/uL (1.0-4.8); Lymphocytes % (A) 33 %; MCH 30.3 pg (25.0-35.0); MCV 97.9 fL (80.0-100.0); Mean Platelet Volume 7.5; Monocytes # (A) 0.5 k/uL (0-1.0); Monocytes % (A) 9 %; Neutrophils % (A) 55 %; Platelet Count 147 k/uL (150-450); RBC 3.97 m/uL (3.80-5.40); RDW 13.8 % (11.5-15.5); WBC 5.6 k/uL (3.8-10.6)
[2024-07-17 07:41] LABS: African American GFR (CKD) 52 (>60 ml/min/1.73 sqM); Anion Gap 8 mmol/L; Blood Urea Nitrogen 23 mg/dL (7-17); Calcium 8.9 mg/dL (8.4-10.2); Carbon Dioxide 25 mmol/L (22-30); Chloride 105 mmol/L (98-107); Glucose 81 mg/dL (74-99); Non-African American GFR(CKD) 45 (>60 ml/min/1.73 sqM); Potassium 3.6 mmol/L (3.5-5.1); Sodium 138 mmol/L (137-145)
--- NOTE | 2024-07-17 08:54 | P.PN ---
Subjective Progress Note Date: 07/16/24 Patient was seen for a follow-up. Patient is laying comfortably in the bed. Offers no new complaints. She still has weakness in the legs. Objective - Vital Signs Vital signs: Vital Signs Temp 97.8 F 07/15/24 07:22 Pulse 75 07/16/24 15:00 Resp 16 07/16/24 15:00 BP 136/78 07/16/24 15:00 Pulse Ox 98 07/16/24 15:00 FiO2 Intake & Output 07/15/24 07/16/24 07/16/24 18:59 06:59 18:59 Weight 72.121 kg - Exam Examination is unchanged. Mentation normal. No focal deficits. - Labs CBC & Chem 7: 07/17/24 06:42 07/17/24 06:42 Assessment and Plan Assessment: * 74-year-old female, recently underwent right TCAR with stent placement on 07/13/2024, sent home day prior to arrival, in a stable condition, tried to get up to use bedside commode, and states her legs felt weak, give out and fell. Patient's neurological examination is completely unchanged, with NIH stroke scale of 0. Her examination is unchanged from the one performed on 07/13/2024 prior to discharge. * History of prior stroke over the right frontal region. * History of TIA * Hypertension * Hyperlipidemia Plan: * Patient's neurological examination is completely stable. Her current NIH stro ke scale is 0. * CT head was performed, which reported as a new area of acute/subacute CVA involving the right posterior frontal lobe which could correlate with new of weakness in the left leg. However her examination is stable as mentioned above. On my review, there is no evidence of a new stroke. The abnormality reported on the CT is likely from prominent sulcus, as it was not noticeable on the coronal and sagittal views. I think so it is partial volume averaging from a sulcus. * CTA head and neck 07/15/2024 revealed no evidence of dissection of the cervical internal carotid arteries or vertebral arteries. No evidence of significant stenosis at the carotid bifurcations. Right carotid system stent grafts appear patent. No evidence of intracranial high-grade stenosis or intracranial aneurysm. Right thyroid nodule. (Will defer to IM regarding thyroid nodule) * 2-D echo from 07/08/2024 showed LVEF 60-65%. No obvious regional wall motion abnormalities. Normal left atrial size. Negative agitated saline bubble study for [id number] shunt. Mild to moderate MR. No need to repeat echo. * Continue Brilinta 90 mg twice a day. Patient has previously failed Plavix. Patient is ALLERGIC to aspirin. * Hemoglobin A1c 5.6 * Lipid panel with cholesterol 169, LDL 78, HDL 78 and triglycerides 59. Continue Lipitor 40 mg daily. * PT OT. Await authorization for transfer to rehab for therapy and restrengthening. * Neurologically clear. We will sign off. Dr. Nilay Rodriguez starting service from the morning for any concerns.
[2024-07-17] MEDS: PANTOPRAZOLE 40 MG TABLET PO SCH (09:10)
--- NOTE | 2024-07-17 13:30 | P.PN ---
Subjective Progress Note Date: 07/17/24 This is a 74-year-old female with past medical history significant for hypertension, hyperlipidemia, pancreatic lesion, chronic kidney disease who was recently admitted to the hospital for acute CVA, presented on 07/08/2024 with left-sided weakness and received TNK, later on had MRI of the brain which showed acute/subacute CVA involving the right basal ganglia and within the cortex within the right frontal lobe. Patient was also diagnosed with ICA stenosis and underwent a right transcarotid artery revascularization on 07/13. Patient was started on Brilinta and was discharged home on 07/14/2024. Family and patient reported that she was very weak and reported that when she got up to use the bathroom earlier today, her right leg started to hurt and gave out and she fell on the ground. Patient was unable to get up due to pain and weakness. Patient was brought to the ER for further evaluation and management. Patient is afebrile, heart rate 79, respiratory rate 19, blood pressure 146/97, saturating more than 90% on room air. CBC unremarkable. BMP showed BUN 23, creatinine 1.29 from baseline. UA was unremarkable. CT head: New area of acute/subacute CVA involving the right posterior frontal lo be which would correlate with area of weakness in the left leg. CT angio head and neck showed no dissection, no evidence of significant stenosis, right carotid stent patent, showed right thyroid 20 mm nodule. Right femur x-ray was negative for any acute process, showed osteoporosis. Right hip x-ray also negative for any acute process. Chest x-ray negative for acute process. 07/16--patient was seen and examined today. No issues overnight. Remained afebrile, heart rate 78, respiratory rate 20, blood pressure 136/72, saturating 98% on room air. Neurology evaluated the patient yesterday, recommended to continue home meds, okay to discharge to subacute rehab. Awaiting placement to subacute rehab, after PT/OT evaluation. 07/17. Patient seen and examined. Laying comfortably in the bed. Complaining of lethargy and weakness REVIEW OF SYSTEMS: CONSTITUTIONAL: No fever, no malaise,. CARDIOVASCULAR: No chest pain, no palpitations, no syncope. PULMONARY: No shortness of breath, no cough, GASTROINTESTINAL: No diarrhea, no nausea, no vomiting, no abdominal pain. NEUROLOGICAL: No headaches, no weakness, PHYSICAL EXAMINATION: GENERAL: The patient is alert and oriented x3, ill looking HEENT: Pupils are round and equally reacting to light. EOMI. No scleral icterus. No conjunctival pallor. Normocephalic, atraumatic. No pharyngeal erythema. No thyromegaly. CARDIOVASCULAR: S1 and S2 present. No murmurs, rubs, or gallops. PULMONARY: Chest is clear to auscultation, no wheezing or crackles. ABDOMEN: Soft, nontender, nondistended, normoactive bowel sounds. No palpable organomegaly. MUSCULOSKELETAL: No joint swelling or deformity. EXTREMITIES: No cyanosis, clubbing, or pedal edema. NEUROLOGICAL: Gross neurological examination did not reveal any focal deficits. SKIN: No rashes. Assessment and plan Generalized weakness: Fall: Recent acute CVA requiring TNK: Carotid artery disease status post with recent right carotid stent /: Hypertension Hyperlipidemia CKD: Pancreatic lesion: Following outpatient Thyroid nodule: Next outpatient follow-up Plan: Monitor vital sign Monitor CBC Monitor CMP Recently discharged from the hospital was admitted for acute CVA requiring TNK, requiring right carotid artery stent, now presented with generalized weakness and fall. Continue Brilinta, statin, Norvasc, Coreg. Neurochecks Monitor renal function PT OT recommended subacute rehab. Neurology following, reviewed CT imaging, do not think there is any evidence of new stroke. Recommend to keep patient on Brilinta and Lipitor Labs and medication were reviewed.. Continue same treatment. Continue with symptomatic treatment. Resume home medication. Monitor labs and vitals. DVT and GI prophylaxis. Further recommendations as per clinical course of the patient Dictation was produced using [email or web address] dictation software. please excuse any grammatical, word or spelling errors. Objective - Vital Signs Vital signs: Vital Signs Temp 97.8 F 07/17/24 08:00 Pulse 69 07/17/24 08:00 Resp 20 07/17/24 08:00 BP 126/72 07/17/24 08:00 Pulse Ox 98 07/17/24 08:00 FiO2 Intake & Output 07/16/24 07/17/24 07/17/24 18:59 06:59 18:59 Output Total 551 300 Balance -551 -300 Weight 72.121 kg 54.5 kg Output: Urine 550 300 Urine/Stool Mix 1 Other: Voiding Method External Catheter External Catheter External Catheter # Voids 1 # Bowel Movements 1 - Labs CBC & Chem 7: 07/17/24 06:42 07/17/24 06:42 Labs: Abnormal Lab Results - Last 24 Hours (Table) 07/17/24 07/17/24 Range/Units 06:42 06:42 Plt Count 147 L (150-450) k/uL BUN 23 H (7-17) mg/dL Creatinine 1.21 H (0.52-1.04) mg/dL
--- NOTE | 2024-07-18 13:48 | P.PN ---
Subjective Progress Note Date: 07/18/24 This is a 74-year-old female with past medical history significant for hypertension, hyperlipidemia, pancreatic lesion, chronic kidney disease who was recently admitted to the hospital for acute CVA, presented on 07/08/2024 with left-sided weakness and received TNK, later on had MRI of the brain which showed acute/subacute CVA involving the right basal ganglia and within the cortex within the right frontal lobe. Patient was also diagnosed with ICA stenosis and underwent a right transcarotid artery revascularization on 07/13. Patient was started on Brilinta and was discharged home on 07/14/2024. Family and patient reported that she was very weak and reported that when she got up to use the bathroom earlier today, her right leg started to hurt and gave out and she fell on the ground. Patient was unable to get up due to pain and weakness. Patient was brought to the ER for further evaluation and management. Patient is afebrile, heart rate 79, respiratory rate 19, blood pressure 146/97, saturating more than 90% on room air. CBC unremarkable. BMP showed BUN 23, creatinine 1.29 from baseline. UA was unremarkable. CT head: New area of acute/subacute CVA involving the right posterior frontal lo be which would correlate with area of weakness in the left leg. CT angio head and neck showed no dissection, no evidence of significant stenosis, right carotid stent patent, showed right thyroid 20 mm nodule. Right femur x-ray was negative for any acute process, showed osteoporosis. Right hip x-ray also negative for any acute process. Chest x-ray negative for acute process. 07/16--patient was seen and examined today. No issues overnight. Remained afebrile, heart rate 78, respiratory rate 20, blood pressure 136/72, saturating 98% on room air. Neurology evaluated the patient yesterday, recommended to continue home meds, okay to discharge to subacute rehab. Awaiting placement to subacute rehab, after PT/OT evaluation. 07/17. Patient seen and examined. Laying comfortably in the bed. Complaining of lethargy and weakness 07/18. Patient seen and examined. Patient was sitting upright in the chair, eating lunch. Denies any chest pain or shortness of breath. Vital signs stable. REVIEW OF SYSTEMS: CONSTITUTIONAL: No fever, no malaise,. CARDIOVASCULAR: No chest pain, no palpitations, no syncope. PULMONARY: No shortness of breath, no cough, GASTROINTESTINAL: No diarrhea, no nausea, no vomiting, no abdominal pain. NEUROLOGICAL: No headaches, no weakness, PHYSICAL EXAMINATION: GENERAL: The patient is alert and oriented x3, ill looking HEENT: Pupils are round and equally reacting to light. EOMI. No scleral icterus. No conjunctival pallor. Normocephalic, atraumatic. No pharyngeal erythema. No thyromegaly. CARDIOVASCULAR: S1 and S2 present. No murmurs, rubs, or gallops. PULMONARY: Chest is clear to auscultation, no wheezing or crackles. ABDOMEN: Soft, nontender, nondistended, normoactive bowel sounds. No palpable organomegaly. MUSCULOSKELETAL: No joint swelling or deformity. EXTREMITIES: No cyanosis, clubbing, or pedal edema. NEUROLOGICAL: Gross neurological examination did not reveal any focal deficits. SKIN: No rashes. Assessment and plan Generalized weakness: Fall: Recent acute CVA requiring TNK: Carotid artery disease status post with recent right carotid stent 07/13: Hypertension Hyperlipidemia CKD: Pancreatic lesion: Following outpatient Thyroid nodule: Next outpatient follow-up Plan: Monitor vital sign Monitor CBC Monitor CMP Recently discharged from the hospital was admitted for acute CVA requiring TNK, requiring right carotid artery stent, now presented with generalized weakness and fall. Continue Brilinta, statin, Norvasc, Coreg. Neurochecks Monitor renal function PT OT recommended subacute rehab. Neurology following, reviewed CT imaging, do not think there is any evidence of new stroke. Recommend to keep patient on Brilinta and Lipitor Labs and medication were reviewed.. Continue same treatment. Continue with symptomatic treatment. Resume home medication. Monitor labs and vitals. DVT and GI prophylaxis. Further recommendations as per clinical course of the patient Dictation was produced using [employer] dictation software. please excuse any grammatical, word or spelling errors. Objective - Vital Signs Vital signs: Vital Signs Temp 98.1 F 07/18/24 08:00 Pulse 70 07/18/24 08:00 Resp 20 07/18/24 08:00 BP 123/68 07/18/24 08:00 Pulse Ox 97 07/18/24 08:00 FiO2 Intake & Output 07/17/24 07/18/24 07/18/24 17:59 06:59 18:59 Intake Total 118 Output Total Balance 118 Weight Intake: IV Invasive Line 1 Oral 118 Output: Urine Other: Voiding Method External Catheter # Voids 1 # Bowel Movements 2 - Labs CBC & Chem 7: 07/17/24 06:42 07/17/24 06:42
[2024-07-19 03:58] VITALS: RESP 15; TEMP 98.3
[2024-07-19 08:26] VITALS: BP 120/76; PULSE 76
--- NOTE | 2024-07-19 13:14 | P.PN ---
Subjective Progress Note Date: 07/19/24 This is a 74-year-old female with past medical history significant for hypertension, hyperlipidemia, pancreatic lesion, chronic kidney disease who was recently admitted to the hospital for acute CVA, presented on 07/08/2024 with left-sided weakness and received TNK, later on had MRI of the brain which showed acute/subacute CVA involving the right basal ganglia and within the cortex within the right frontal lobe. Patient was also diagnosed with ICA stenosis and underwent a right transcarotid artery revascularization on 07/13. Patient was started on Brilinta and was discharged home on 07/14/2024. Family and patient reported that she was very weak and reported that when she got up to use the bathroom earlier today, her right leg started to hurt and gave out and she fell on the ground. Patient was unable to get up due to pain and weakness. Patient was brought to the ER for further evaluation and management. Patient is afebrile, heart rate 79, respiratory rate 19, blood pressure 146/97, saturating more than 90% on room air. CBC unremarkable. BMP showed BUN 23, creatinine 1.29 from baseline. UA was unremarkable. CT head: New area of acute/subacute CVA involving the right posterior frontal lo be which would correlate with area of weakness in the left leg. CT angio head and neck showed no dissection, no evidence of significant stenosis, right carotid stent patent, showed right thyroid 20 mm nodule. Right femur x-ray was negative for any acute process, showed osteoporosis. Right hip x-ray also negative for any acute process. Chest x-ray negative for acute process. 07/16--patient was seen and examined today. No issues overnight. Remained afebrile, heart rate 78, respiratory rate 20, blood pressure 136/72, saturating 98% on room air. Neurology evaluated the patient yesterday, recommended to continue home meds, okay to discharge to subacute rehab. Awaiting placement to subacute rehab, after PT/OT evaluation. 07/17. Patient seen and examined. Laying comfortably in the bed. Complaining of lethargy and weakness 07/18. Patient seen and examined. Patient was sitting upright in the chair, eating lunch. Denies any chest pain or shortness of breath. Vital signs stable. 07/19. Patient seen and examined. Currently waiting on insurance authorization for rehab placement. No acute issue overnight. Vital signs stable REVIEW OF SYSTEMS: CONSTITUTIONAL: No fever, no malaise,. CARDIOVASCULAR: No chest pain, no palpitations, no syncope. PULMONARY: No shortness of breath, no cough, GASTROINTESTINAL: No diarrhea, no nausea, no vomiting, no abdominal pain. NEUROLOGICAL: No headaches, no weakness, PHYSICAL EXAMINATION: GENERAL: The patient is alert and oriented x3, ill looking HEENT: Pupils are round and equally reacting to light. EOMI. No scleral icterus. No conjunctival pallor. Normocephalic, atraumatic. No pharyngeal erythema. No thyromegaly. CARDIOVASCULAR: S1 and S2 present. No murmurs, rubs, or gallops. PULMONARY: Chest is clear to auscultation, no wheezing or crackles. ABDOMEN: Soft, nontender, nondistended, normoactive bowel sounds. No palpable organomegaly. MUSCULOSKELETAL: No joint swelling or deformity. EXTREMITIES: No cyanosis, clubbing, or pedal edema. NEUROLOGICAL: Gross neurological examination did not reveal any focal deficits. SKIN: No rashes. Assessment and plan Generalized weakness: Fall: Recent acute CVA requiring TNK: Carotid artery disease status post with recent right carotid stent 3/: Hypertension Hyperlipidemia CKD: Pancreatic lesion: Following outpatient Thyroid nodule: Next outpatient follow-up Plan: Monitor vital sign Monitor CBC Monitor CMP Recently discharged from the hospital was admitted for acute CVA requiring TNK, requiring right carotid artery stent, now presented with generalized weakness and fall. Continue Brilinta, statin, Norvasc, Coreg. Neurochecks Monitor renal function PT OT recommended subacute rehab, currently waiting on insurance authorization for rehab placement Neurology following, reviewed CT imaging, do not think there is any evidence of new stroke. Recommend to keep patient on Brilinta and Lipitor Labs and medication were reviewed.. Continue same treatment. Continue with symptomatic treatment. Resume home medication. Monitor labs and vitals. DVT and GI prophylaxis. Further recommendations as per clinical course of the patient Dictation was produced using [employer] dictation software. please excuse any grammatical, word or spelling errors. Objective - Vital Signs Vital signs: Vital Signs Temp 98.3 F 07/19/24 08:02 Pulse 76 07/19/24 08:00 Resp 15 07/19/24 08:02 BP 120/76 07/19/24 08:00 Pulse Ox 96 07/19/24 08:02 FiO2 Intake & Output 07/18/24 07/19/24 07/19/24 18:59 06:59 18:59 Intake Total 354 118 Output Total 750 1150 Balance -396 -1150 118 Weight 72.4 kg Intake: Oral 354 118 Output: Urine 750 1150 Other: Voiding Method External Catheter # Voids 1 2 # Bowel Movements 1 - Labs CBC & Chem 7: 07/17/24 06:42 07/17/24 06:42
--- NOTE | 2024-07-19 14:12 | P.DS ---
Providers Date of admission: 07/15/24 08:51 Expected date of discharge: 07/19/24 Attending physician: Deanna Kay Consults: 07/15/24 08:56 Consult Physician Urgent Consulting Provider: Jose Herrera Consult Reason/Comments: Evolving CVA Do you want consulting provider notified?: Yes Primary care physician: [facility] Course: Discharge diagnoses; Generalized weakness: Fall: Recent acute CVA requiring TNK: Carotid artery disease status post with recent right carotid stent 07/13: Hypertension Hyperlipidemia CKD: Pancreatic lesion: Following outpatient Thyroid nodule: Next outpatient follow-up Plan; Continue Brilinta, statin, Norvasc, Coreg. PT OT recommended subacute rehab Neurology following, reviewed CT imaging, do not think there is any evidence of new stroke. Recommend to keep patient on Brilinta and Lipitor Hospital course; This is a 74-year-old female with past medical history significant for hypertension, hyperlipidemia, pancreatic lesion, chronic kidney disease who was recently admitted to the hospital for acute CVA, presented on 07/08/2024 with left-sided weakness and received TNK, later on had MRI of the brain which showed acute/subacute CVA involving the right basal ganglia and within the cortex within the right frontal lobe. Patient was also diagnosed with ICA stenosis and underwent a right transcarotid artery revascularization on 07/13. Patient was started on Brilinta and was discharged home on 07/14/2024. Family and patient reported that she was very weak and reported that when she got up to use the bathroom earlier today, her right leg started to hurt and gave out and she fell on the ground. Patient was unable to get up due to pain and weakness. Patient was brought to the ER for further evaluation and management. Patient is afebrile, heart rate 79, respiratory rate 19, blood pressure 146/97, saturating more than 90% on room air. CBC unremarkable. BMP showed BUN 23, creatinine 1.29 from baseline. UA was unremarkable. CT head: New area of acute/subacute CVA involving the right posterior frontal lobe which would correlate with area of weakness in the left leg. CT angio head and neck showed no dissection, no evidence of significant stenosis, right carotid stent patent, showed right thyroid 20 mm nodule. Right femur x-ray was negative for any acute process, showed osteoporosis. Right hip x-ray also negative for any acute process. Chest x-ray negative for acute process. 07/16--patient was seen and examined today. No issues overnight. Remained afebrile, heart rate 78, respiratory rate 20, blood pressure 136/72, saturating 98% on room air. Neurology evaluated the patient yesterday, recommended to continue home meds, okay to discharge to subacute rehab. Awaiting placement to subacute rehab, after PT/OT evaluation. 07/17. Patient seen and examined. Laying comfortably in the bed. Complaining of lethargy and weakness 07/18. Patient seen and examined. Patient was sitting upright in the chair, eating lunch. Denies any chest pain or shortness of breath. Vital signs stable. 07/19. Patient seen and examined. Being discharged to rehab in stable condition PHYSICAL EXAMINATION: GENERAL: The patient is alert and oriented x3, not in any acute distress. Well developed, well nourished. HEENT: Pupils are round and equally reacting to light. EOMI. No scleral icterus. No conjunctival pallor. Normocephalic, atraumatic. No pharyngeal erythema. No thyromegaly. CARDIOVASCULAR: S1 and S2 present. No murmurs, rubs, or gallops. PULMONARY: Chest is clear to auscultation, no wheezing or crackles. ABDOMEN: Soft, nontender, nondistended, normoactive bowel sounds. No palpable organomegaly. MUSCULOSKELETAL: No joint swelling or deformity. EXTREMITIES: No cyanosis, clubbing, or pedal edema. NEUROLOGICAL: Gross neurological examination did not reveal any focal deficits. SKIN: No rashes. Dictation was produced using [employer] dictation software. please excuse any grammatical, word or spelling errors. Patient Condition at Discharge: Fair Plan - Discharge Summary Discharge Rx Participant: No New Discharge Prescriptions: Continue amLODIPine [Norvasc] 5 mg PO DAILY carvediloL [Coreg] 12.5 mg PO BID Montelukast [Singulair] 10 mg PO HS Atorvastatin Calcium [Lipitor] 40 mg PO HS Ticagrelor [Brilinta] 90 mg PO BID #60 tab Discharge Medication List Montelukast [Singulair] 10 mg PO HS 04/06/24 [History] amLODIPine [Norvasc] 5 mg PO DAILY 04/06/24 [History] carvediloL [Coreg] 12.5 mg PO BID 04/06/24 [History] Atorvastatin Calcium [Lipitor] 40 mg PO HS 07/08/24 [History] Ticagrelor [Brilinta] 90 mg PO BID #60 tab 07/14/24 [Rx] Follow up Appointment(s)/Referral(s): Champ Fong MD [Primary Care Provider] - 1-2 days
--- NOTE | 2024-07-23 09:52 | CDI ---
Documentation Clarification Form Date: 07/23/24 From: Raf Marin, OMAR, RN, CCDS, CDIP Phone: [phone] Admit Date: 07/15/2024 08:51:00 AM Patient Name: Micaela Aguila Visit Number: [id number] Discharge Date: 07/19/2024 03:35:00 PM ATTENTION: The Clinical Documentation Specialists (CDI) and [facility] Coding Staff appreciate your assistance in clarifying documentation. Please respond to the clarification below the line at the bottom and electronically sign. The CDI & [facility] Coding staff will review the response and follow-up if needed. Please note: Queries are made part of the Legal Health Record. If you have any questions, please contact the author of this message via ITS. Dr. Herrera, New weakness in the left leg, no evidence of a new stroke was documented in the Neuro PN on 07/16/24. Additional clarification regarding the etiology of the weakness is requested. History/Risk Factors: 74 yo female presented from home after falling, reports she belies her leg was weak. She was dcd 07/14/24 after acute stroke with left sided weakness due to right ICA stenosis. She underwent right transcranial artery revascularization with stenting on on her prior admission. PMH CAD, CVA/TIA, HLD, HTN. (Neuro consult 07/15/24) Clinical Indicators CT brain 07/15/24 new are of acute/subacute CVA involving the right posterior frontal lobe which would correlate with area of weakness in the left leg. ([employer] reports) CTA Neck 07/15/24 no evidence of dissection, stenosis or aneurysm. Right carotid stent appear patent. ([employer] reports) PT eval 07/17/24: decreased strength, decreased endurance, patient has difficult turning over in bed, sitting down and standing up and moving from lying to sitting. Patient requires max assist for mobility. Recommend Subacute rehab PT note 07/17 Pt presents w/ ongoing strength deficits, decreased trunk control w/ R lateral list in sitting and standing, impaired gait skills, and high fall risk potential. Would recommend IPR assessment, as patient has the ability to tolerate 3 hours of therapy intervention. Encourage time out of bed and up with assistance to bathroom. ([employer] Patient care) OT eval 07/19 pt displayed decreased sitting balance. pt wanting to lean to the left. pt STS from bed with SBA. pt min pa with use of RW for 96' functional mobility. pt display small choppy steps, left lean, needed cues for posture and steps. ([employer] Patient care) ST eval 07/16 Pt presents with left sided facial weakness and mildly dysarthric speech as c/b slurred speech. pt presents with a mild cognitive communication deficit and a mild dysarthria. These deficits were present the last time she was admitted to [facility] on 07/08/24, though have since improved from the previous assessment. Pt is still showing deficits in the area of functional math. Recommend IP speech therapy 3-5 x per week. ([employer] Patient care) Treatment: OT/PT/ST eval and treat, [facility]) [see above detail] Per 07/19 dc to rehab in stable condition. To further capture the clinical complexity of the patient's presentation, based on the information provided above can the etiology of the weakness be specified? [ x ] Weakness due to recent CVA (not a new/acute CVA, as examination was stable, with no new deficits) [ x ] Weakness due to physical deconditioning [ x ] Weakness is due to frailty [ ] Weakness etiology unknown [ ] Unable to determine [ ] Other, please specify All clinical indicators were obtained from [employer] EMR. [id number]
== END 2024-07-19 15:35 | DRG 884 ==
LOC: EC 07:16 → 3SCARD 08:51
PROVIDERS: ADMIT Hospitalist; ATTEND Hospitalist
DX: R54 Age-related physical debility (principal); E04.1 Nontoxic single thyroid nodule; I12.9 Hypertensive chronic kidney disease with stage 1 through stage 4 chronic kidney disease, or unspecified chronic kidney disease; N18.9 Chronic kidney disease, unspecified; E78.5 Hyperlipidemia, unspecified; K86.9 Disease of pancreas, unspecified; I25.10 Atherosclerotic heart disease of native coronary artery without angina pectoris; I44.0 Atrioventricular block, first degree; M81.0 Age-related osteoporosis without current pathological fracture; Z79.899 Other long term (current) drug therapy; Z88.5 Allergy status to narcotic agent; Z88.0 Allergy status to penicillin; Z88.6 Allergy status to analgesic agent; Z91.041 Radiographic dye allergy status; Z79.02 Long term (current) use of antithrombotics/antiplatelets
CPT/HCPCS: 36415; 70450; 70496; 70498; 71046; 73502; 80048; 80053; 81003; 83605; 83735; 85025; 85610; 85730; 93005; 96374; 96375; 96376; 99285